=== PATIENT | female | born 1935 | race Caucasian/White ===

== ENCOUNTER 2016-10-09 22:02 | Emergency (ER) | payer OTHER ==
[~2016-10-09] VITALS: Ht 147.3 cm; Wt 41.0 kg
[~2016-10-09 22:02] MED LIST: ASPI81TA28 PO; CYCL0.05 OPB; FLUT0.0529 NAE; METO50TA16 PO; MRN/25 PO; ONDA4TAB46 PO; POLY335019 PO
[2016-10-09 22:09] VITALS: TEMP 36.6; Ht 147.3 cm; Wt 41.0 kg
[2016-10-09 22:51] LABS: BASO % 0.5 %; BASO ABS # 0.05 K/uL (0-0.2); COMPLETE YES; EOS % 1.4 %; HEMATOCRIT 43.5 % (37-47); IG% 0.2 %; LYMPH ABS # 2.44 K/uL (1.2-3.4); MEAN CORPUSCULAR HEMOGLOBIN 31.7 pg (25-34); MEAN CORPUSCULAR HGB CONC 33.8 g/dl (32-36); MEAN PLATELET VOLUME 11.2 fL (7.4-10.4); MONO % 14.5 %; NEUT % 58.4 %; PLATELET COUNT 279 K/uL (130-400); RED BLOOD COUNT 4.63 M/uL (4.2-5.4); WHITE BLOOD COUNT 9.75 K/uL (4.8-10.8)
[2016-10-09] MEDS ORDERED: OPTIRAY 320 IV PRN (23:00)
[2016-10-09 23:05] LABS: ALT/SGPT 15 U/L (12-78); AST/SGOT 12 U/L (15-37); BLOOD UREA NITROGEN 16 mg/dl (7-18); BUN/CREATININE RATIO 18.1 (10-20); CALCIUM 9.1 mg/dl (8.5-10.1); CARBON DIOXIDE 27 mmol/L (21-32); CHLORIDE 108 mmol/L (98-107); CREATININE 0.88 mg/dl (0.60-1.20); GLUCOSE 83 mg/dl (70-99); SODIUM 144 mmol/L (136-145)
[2016-10-09 23:08] LABS: ALKALINE PHOSPHATASE 84 U/L (45-117)
[2016-10-09 23:12] LABS: URINE APPEARANCE CLOUDY (CLEAR); URINE BILIRUBIN NEG (NEG); URINE COLOR YELLOW; URINE NITRITE POS (NEG); URINE PH 5.5 (4.5-7.5); UROBILINOGEN NEG (NEG); ZZUR CULT IF INDIC CLEAN CATCH YES
[2016-10-09 23:19] LABS: MANUAL MICROSCOPIC REQUIRED? NO; REVIEW REQ? NO
[2016-10-10] MEDS ORDERED: KPP/250 PO (00:20)
[2016-10-10] MEDS ORDERED: ONDANSETRON INJ 2 MG/ML 2 ML VIAL IV STA (00:41)
[2016-10-10] MEDS ORDERED: SODIUM CHLORIDE 0.9% 250ML 250 ML IV STA (00:41)
[2016-10-10] MEDS ORDERED: GI COCKTAIL PO STA (00:41)
[2016-10-10] MEDS ORDERED: AMPICILLIN 250 MG CAP PO STA (00:43)
[2016-10-10] MEDS ORDERED: LIDOCAINE HCL 2% VISC SOLN 20 ML UDC ONE (00:44)
[2016-10-10] MEDS ORDERED: ALUMINUM/MAGNESIUM SUSP 30 ML UDC ONE (00:44)
[2016-10-10] MEDS ORDERED: AMPI500C9 PO (00:47)
[2016-10-10] MEDS ORDERED: FAMO20TA11 PO (01:25)
[2016-10-10 01:36] VITALS: BP 148/59; PULSE 60; O2SAT 94
--- NOTE | 2016-10-10 01:40 | EMERGENCY ROOM VISIT NOTE ---
History Report prepared by Tom: Sindhu Sheets Under the Supervision of: Dr. Hay Chowdhury D.O. First contact with patient: 22:26 Chief Complaint: ABDOMINAL PAIN Stated Complaint: SICK- PAIN IN LEGS AND STOMACH History of Present Illness The patient is a 80 year old female who presents to the Emergency Room with complaints of constant diffuse abdominal pain that started 2-3 days ago. She has never experienced pain like this in the past. Nothing seems to make the pain better. The patient is also experiencing nausea, but denies vomiting. The patient's last bowel movement was today and it was normal. She is also experiencing lightheadedness and states that she feels like she is going to experience syncope. The lightheadedness occurs only when she experiences leg pain. The patient's daughter states that the patient has been experiencing worsening left leg pain recently. The patient has been experiencing left leg pain ever since she had a hemorrhagic stroke in 2012. The stroke affected her left side. The patient's daughter states that the patient had blood clots in her left leg and they put a filter in. She is not on any blood thinners because of the hemorrhagic stroke. The patient's daughter adds that the patient was started on antibiotics by her PCP on 09/26 for an E. coli infection. The patient finished a full course of Cipro then she was put on Macrobid and another course of Cipro. However, her PCP stopped the antibiotics because they thought it might be the cause of her abdominal pain so she is not on any antibiotics currently. The patient was started on Keppra 2 days ago. Source of History: patient Onset: 2-3 days ago Position: abdomen (diffuse) Timing: constant Modifying Factors (Relieving): other (None) Associated Symptoms: + nausea, No vomiting Note: lightheadedness, left leg pain Review of Systems See HPI for pertinent positives & negatives. A total of 10 systems reviewed and were otherwise negative. Past Medical & Surgical Medical Problems: (1) Abdominal aortic aneurysm dissection (2) Abdominal pain (3) Brainstem hemorrhage (4) CAD (coronary artery disease) (5) Chronic pain (6) Left leg DVT (7) Pacemaker (8) PAT (paroxysmal atrial tachycardia) (9) Sinoatrial node dysfunction Surgical Problems: (1) H/O splenectomy (2) History of repair of hiatal hernia (3) History of tonsillectomy and adenoidectomy (4) S/P IVC filter Family History Heart disease Hypertension Kidney disease Kidney stones Social History Smoking Status: Never Smoker Alcohol Use: none Marital Status: Housing Status: lives alone Occupation Status: retired Current/Historical Medications Scheduled Ampicillin (Ampicillin), 1 CAP PO TID Aspirin (Aspirin Ec), 81 MG PO DAILY Dronabinol (Marinol), 2.5 MG PO BID Famotidine (Pepcid), 20 MG PO DAILY Levetiractam (Keppra), 250 MG PO BID Metoprolol Tartrate (Lopressor) (Lopressor), 50 MG PO BID Scheduled PRN Ondansetron Hcl (Zofran), 4 MG PO QID PRN for Nausea Allergies Coded Allergies: Diclofenac (Verified Allergy, Severe, HIGH BP, 10/10/16) Isopropyl Alcohol (Verified Allergy, Severe, HIGH BP, 10/10/16) Propylene Glycol (Verified Allergy, Severe, HIGH BP, 10/10/16) Tizanidine (Unverified Allergy, Intermediate, DELIRIUM, 10/10/16) Cephalexin (Verified Allergy, Mild, 10/10/16) Codeine (Verified Allergy, Unknown, edema airway,rash & hives, 10/10/16) Egg (Verified Allergy, Unknown, ALLERGY TO EGG WHITES, 10/10/16) Ketorolac (Verified Allergy, Unknown, 10/10/16) Omeprazole (Verified Allergy, Unknown, unknown, 10/10/16) gmg Propoxyphene (Verified Allergy, Unknown, 10/10/16) Sulfa Drugs (Verified Allergy, Unknown, 10/10/16) Sucralfate (Verified Adverse Reaction, Unknown, itching,n/v, 10/10/16) gmg Physical Exam Vital Signs Date Time Temp Pulse Resp B/P Pulse Ox O2 Delivery O2 Flow Rate FiO2 10/10/16 00:28 67 20 172/72 94 Room Air 10/09/16 22:25 84 10/09/16 22:09 36.6 89 24 156/76 96 Room Air Physical Exam GENERAL: alert, sitting up in bed, cachectic appearing, no acute distress, non- toxic EYE EXAM: normal conjunctiva, PERRL and EOM's intact OROPHARYNX: no exudate, no erythema, lips, buccal mucosa, and tongue normal and mucous membranes are moist NECK: supple, no nuchal rigidity, no adenopathy, non-tender LUNGS: Clear to auscultation. Normal chest wall mechanics HEART: no murmurs, S1 normal and S2 normal ABDOMEN: abdomen soft, non-tender, normo-active bowel sounds, no masses, no rebound or guarding. BACK: Back is symmetrical on inspection and there is no deformity, no midline tenderness, no CVA tenderness. SKIN: no rashes and no bruising UPPER EXTREMITIES: upper extremities are grossly normal. LOWER EXTREMITIES: No pitting edema. DP 2/4 on right with full active and passive range of motion of the hip, knee, ankle, and EHL. NEURO EXAM: Normal sensorium, cranial nerves II-XII intact, normal speech, slight weakness in left upper extremity which is old, slight weakness of left lower extremity which is old. No drift. Finger to nose intact. Gross sensation intact. Medical Decision & Procedures ER Provider Diagnostic Interpretation: CT and US results have been interpreted by the radiologist and reviewed by me. CT ABDOMEN & PELVIS - [facility] impression Multicystic ovaries, largest lesion on the right side measuring approximately 3.5 cm. No surrounding fluid of inflammation. Large hiatal hernia. Small stones suspected at the base of the bladder. Colonic diverticulosis but not acute diverticulitis, colitis, appendicitis, or bowel obstruction. IVC filter in place. Atrophy of the right kidney. Left kidney shows scarring at the upper pole with exophytic cyst. No hydronephrosis. US VENOUS LEFT LOWER EXTREMITY - [facility] impression Age-indeterminate nonocclusive thrombus identified in the mid to distal superficial femoral vein (not completely compressible and hypoechoic). No priors available to document stability. Laboratory Results 10/09/16 22:37 Red Blood Count 4.63, Mean Corpuscular Volume 94.0, Mean Corpuscular Hemoglobin 31.7, Mean Corpuscular Hemoglobin Concent 33.8, Mean Platelet Volume 11.2, Neutrophils (%) (Auto) 58.4, Lymphocytes (%) (Auto) 25.0, Monocytes (%) (Auto) 14.5, Eosinophils (%) (Auto) 1.4, Basophils (%) (Auto) 0.5, Neutrophils # (Auto ) 5.69, Lymphocytes # (Auto) 2.44, Monocytes # (Auto) 1.41, Eosinophils # (Auto ) 0.14, Basophils # (Auto) 0.05 10/09/16 22:37 Test 10/09/16 22:37 10/09/16 23:01 White Blood Count 9.75 K/uL (4.8-10.8) Red Blood Count 4.63 M/uL (4.2-5.4) Hemoglobin 14.7 g/dL (12.0-16.0) Hematocrit 43.5 % (37-47) Mean Corpuscular Volume 94.0 fL (80-100) Mean Corpuscular Hemoglobin 31.7 pg (25-34) Mean Corpuscular Hemoglobin Concent 33.8 g/dl (32-36) Platelet Count 279 K/uL (130-400) Mean Platelet Volume 11.2 fL (7.4-10.4) Neutrophils (%) (Auto) 58.4 % Lymphocytes (%) (Auto) 25.0 % Monocytes (%) (Auto) 14.5 % Eosinophils (%) (Auto) 1.4 % Basophils (%) (Auto) 0.5 % Neutrophils # (Auto) 5.69 K/uL (1.4-6.5) Lymphocytes # (Auto) 2.44 K/uL (1.2-3.4) Monocytes # (Auto) 1.41 K/uL (0.11-0.59) Eosinophils # (Auto) 0.14 K/uL (0-0.5) Basophils # (Auto) 0.05 K/uL (0-0.2) RDW Standard Deviation 49.7 fL (36.4-46.3) RDW Coefficient of Variation 14.6 % (11.5-14.5) Immature Granulocyte % (Auto) 0.2 % Immature Granulocyte # (Auto) 0.02 K/uL (0.00-0.02) Anion Gap 9.0 mmol/L (3-11) Est Creatinine Clear Calc Drug Dose 32.4 ml/min Estimated GFR () 71.4 Estimated GFR (Non- 61.6 BUN/Creatinine Ratio 18.1 (10-20) Calcium Level 9.1 mg/dl (8.5-10.1) Total Bilirubin 0.3 mg/dl (0.2-1) Direct Bilirubin < 0.1 mg/dl (0-0.2) Aspartate Amino Transf (AST/SGOT) 12 U/L (15-37) Alanine Aminotransferase (ALT/SGPT) 15 U/L (12-78) Alkaline Phosphatase 84 U/L (45-117) Total Protein 7.4 gm/dl (6.4-8.2) Albumin 3.2 gm/dl (3.4-5.0) Lipase 146 U/L (73-393) Urine Color YELLOW Urine Appearance CLOUDY (CLEAR) Urine pH 5.5 (4.5-7.5) Urine Specific [place] 1.000 (1.000-1.030) Urine Protein NEG (NEG) Urine Glucose (UA) NEG (NEG) Urine Ketones NEG (NEG) Urine Occult Blood 1+ (NEG) Urine Nitrite POS (NEG) Urine Bilirubin NEG (NEG) Urine Urobilinogen NEG (NEG) Urine Leukocyte Esterase LARGE (NEG) Urine WBC (Auto) >30 /hpf (0-5) Urine RBC (Auto) 0-4 /hpf (0-4) Urine Hyaline Casts (Auto) 0 /lpf (0-5) Urine Epithelial Cells (Auto) 5-10 /lpf (0-5) Urine Bacteria (Auto) 4+ (NEG) Laboratory results per my review. Medications Administered Medications (Trade) Dose Ordered Sig/Pedro Route Start Time Stop Time Status Last Admin Dose Admin Ondansetron HCl (Zofran Inj) 4 mg NOW STAT IV 10/10/16 00:41 10/10/16 00:42 DC 10/10/16 00:50 4 MG Miscellaneous Medication 24 ml 24 ml NOW STAT PO 10/10/16 00:41 10/10/16 00:43 DC 10/10/16 00:41 24 ML Sodium Chloride (Nss 250ml) 250 ml @ 999 mls/hr Q16M STAT IV 10/10/16 00:41 10/10/16 00:56 DC 10/10/16 00:52 999 MLS/HR Ampicillin (Ampicillin Cap) 500 mg NOW STAT PO 10/10/16 00:43 10/10/16 00:44 DC 10/10/16 00:55 500 MG ECG Indication: abdominal pain Rate (beats per minute): 84 Rhythm: other (atrial paced) Findings: other (normal axis, poor baseline in anterior leads) Comparison ECG Date: 10/27/2015 Change: no significant change ED Course ED COURSE: Vital signs were reviewed and showed hypertension. The patients medical record was reviewed The above diagnostic studies were performed and reviewed. ED treatments and interventions as stated above. 2235: The patient was evaluated in room A11. A complete history and physical examination was performed. 2256: I called to have the patient's pacemaker interrogated. 2338: The nurse informed me that she talked to [employer] and they said that the only thing the patient experienced was a run of sinus tachycardia on October 09. Otherwise the patient's pacemaker has been functioning appropriately. 0000: I reassessed the patient. I also updated the patient and her family. 0041: Ordered Sodium Chloride 250 ml @ 999 mls/hr IV, GI Cocktail 24 ml PO, Zofran Inj 4 mg IV, Ampicillin 500 mg PO 0109: [facility] called to inform me about the patient's ultrasound results. 0114: Upon reevaluation, the patient is doing well. I discussed my findings with the patient and her family. They understand and agree with the treatment plan. Based on the patients age, coexisting illnesses, exam and lab findings the decision to treat as an outpatient was made. The patient remained stable while under my care. The patient appeared well at the time of discharge. Medical Decision Differential diagnoses includes but is not limited to gastritis, peptic ulcer disease, GERD, gallbladder disease, pancreatitis, small bowel obstruction, acute coronary syndrome, pericarditis, ischemic bowel, irritable bowel disease, irritable bowel syndrome, appendicitis, diverticulitis, malignancy, hernia, urinary tract infection, torsion, perforation, trauma, infectious. Patient is an 80-year-old female who presents the ER for diffuse abdominal pain associated with dysuria which is been present for the past 2 weeks. She is also complaining of worsening left leg pain. Patient notes that she has been having abdominal pain for the past 2-3 days. She notes that sometimes it resolves completely but she is uncertain of the exacerbating or remitting factors. Her abdominal exam is benign. She was given a GI cocktail with complete resolution of her symptoms. She denied any chest pain or shortness of breath. CT of her abdomen and pelvis was unremarkable. Last bowel movement was today. She has been treated for UTI with 2 courses Cipro and 1 of Macrobid. Upon review of the culture from [employer]'s EMR it shows that the UTI is lying and resistant to Cipro. She is placed on ampicillin as it was susceptible to this. She has taken penicillins in the past without difficulty. Labs show no significant leukocytosis or anemia. BMP along with LFTs, bilirubin and lipase were unremarkable. UA shows a clear UTI as discussed above. She good pulse in the left leg. Duplex shows a nonocclusive thrombus in the superficial femoral vein. Patient and her family note that she can not be on anticoagulation due to a hypertensive bleed back in 2012. They are adamant about this. She has an IVC filter. Consequently I stressed the importance of her following up with her primary care doctor tomorrow in regards to this DVT. I explained the risk and benefits of this. She does currently take aspirin. Stressed the importance of being more active. Discussed with Pt concerning signs and symptoms to watch out for. Pt was instructed to follow up with their PCP and discussed with the patient their option to return to the ED at anytime for persistent or worsening symptoms. The appropriate anticipatory guidance and out-patient management, including indications for return to the emergency department, were explained at length to the patient and understood. Impression Primary Impression: Periumbilical abdominal pain Additional Impressions: UTI (urinary tract infection) Chronic radicular pain of lower extremity DVT (deep venous thrombosis) Scribe Attestation The scribe's documentation has been prepared under my direction and personally reviewed by me in its entirety. I confirm that the note above accurately reflects all work, treatment, procedures, and medical decision making performed by me. Departure Information Dispostion Home / Self-Care Prescriptions Famotidine (Pepcid) 20 Mg Tab 20 MG PO DAILY, #30 TAB Prov: Hay Chowdhury, DO 10/10/16 Ampicillin (AMPICILLIN) 500 Mg Cap 1 CAP PO TID for 10 Days, #30 CAP Prov: Hay Chowdhury, DO 10/10/16 Referrals Analia Yates D.O. (PCP) Forms HOME CARE DOCUMENTATION FORM, IMPORTANT VISIT INFORMATION Patient Instructions Abdominal Pain - [facility], [facility], UTI Additional Instructions Please follow up with your primary care doctor with in the next 24 hours. Any worsening of your symptoms, please return to the ED immediately. This includes persistent fevers greater than 100.4, passing out, chest pain, shortness of breath, or any other concerning signs or symptoms from your standpoint. Please take the antibiotics as prescribed. Please follow up with your primary care doctor in regards to the small nonocclusive DVT in your left superficial femoral vein. Please take Pepcid as prescribed for your burning abdominal pain. Problem Qualifiers Additional Impressions: UTI (urinary tract infection) Urinary tract infection type: acute cystitis Hematuria presence: without hematuria Qualified Codes: N30.00 - Acute cystitis without hematuria DVT (deep venous thrombosis) DVT location: lower extremity Affected thrombotic vein of extremity: femoral Laterality: left Chronicity: unspecified Qualified Codes: I82.412 - Acute embolism and thrombosis of left femoral vein
--- NOTE | 2016-10-10 06:44 | DIAGNOSTIC IMAGING REPORT ---
ULTRASOUND LEFT LOWER EXTREMITY VENOUS CLINICAL HISTORY: Left leg pain. COMPARISON STUDY: Left lower extremity venous ultrasound dated 07/29/2015. TECHNIQUE: Real-time, grayscale, and color Doppler sonography of the deep veins of the left lower extremity was performed from the inguinal crease to the calf. Compression and augmentation were utilized. FINDINGS: There is nonocclusive and age indeterminant but chronic appearing deep venous thrombosis seen within the distal superficial femoral vein. The common femoral vein, the proximal superficial femoral, and popliteal veins are patent and normally compressible. The greater saphenous vein and the profunda femoris vein at the junction with the common femoral vein are clear. The visualized calf veins are patent. IMPRESSION: 1. There is age indeterminant but chronic appearing deep venous thrombosis identified within the mid to distal portions of the left superficial femoral vein. Thrombus was also seen at this site on 07/29/2015. 2. The remaining deep veins of the left lower extremity are patent. Electronically signed by: Woodrow Salazar M.D. 10/10/2016 6:43 AM Dictated Date/Time: 10/10/2016 6:41 AM
--- NOTE | 2016-10-10 07:22 | DIAGNOSTIC IMAGING REPORT ---
CT SCAN OF THE ABDOMEN AND PELVIS WITH IV CONTRAST CLINICAL HISTORY: Nausea. Generalized abdominal pain. COMPARISON STUDY: Abdominal CT dated 04/23/2016. TECHNIQUE: Following the IV administration of 92 cc of Optiray 320, CT scan of the abdomen and pelvis is performed from the lung bases to the proximal femora. Images are reviewed in the axial, sagittal, and coronal planes. IV contrast was administered without complication. Automated dose control exposure was utilized. The examination is degraded by streak artifact from the patient's arms which could not be elevated above the abdomen. CT DOSE: 260.77 mGy.cm FINDINGS: Lung bases: The heart is top normal in size and without pericardial effusion. Pacemaker leads are noted. The coronary arteries are densely calcified. There is chronic elevation of the left hemidiaphragm with left basilar atelectasis. The lung bases are otherwise clear. Liver: The contrast-enhanced liver is normal in size, contour, and attenuation. There is no intrahepatic biliary ductal dilatation. The hepatic veins and portal veins are patent. Gallbladder: Unremarkable. Spleen: The spleen is diminutive. Pancreas: Markedly atrophic and grossly unremarkable. Adrenal glands: Unremarkable. Kidneys: The today's are markedly atrophic, asymmetrically greater on the right than the left. Postoperative change is suggested in the right upper pole. The kidneys enhance symmetrically. Numerous foci of parenchymal scarring are seen bilaterally. There are nonobstructing bilateral renal calculi. A left renal cyst measures 2.8 cm. Additional subcentimeter cortical hypodensities also likely represent cysts but are too small for definitive characterization. Abdominal vasculature: The abdominal aorta is normal in course and caliber noting advanced atherosclerotic calcification. There is focal ectasia and a focal dissection seen in the infrarenal abdominal aorta on axial image #153. An IVC filter is in place at the level of the renal veins. Stomach and bowel: There is a moderate hiatal hernia. The duodenum is normal in configuration. No bowel obstruction is seen. There is advanced sigmoid diverticulosis without CT evidence of acute diverticulitis. Mild to moderate colonic fecal retention is observed. The appendix is well-visualized and normal. Peritoneum: There is no intraperitoneal free air or abdominal ascites. There is a small fat-containing umbilical hernia. Lymphadenopathy: None. Pelvic viscera: There are bladder calculi identified. The bladder is otherwise normal as visualized. The uterus is normal as imaged. The ovaries are enlarged and there are numerous bilateral ovarian cystic lesions. The largest is on the right and measures up to 3.6 cm. these are similar appearance to the 04/23/2016 examination. Findings suggest pelvic floor prolapse. Skeletal structures: The skeletal structures are osteopenic. There is mild lumbosacral spondylosis. A mild/moderate compression deformity is noted involving T11. No lytic or blastic lesions are seen. IMPRESSION: 1. There are no acute infectious or inflammatory findings in the abdomen or pelvis. 2. There is advanced diverticulosis of the left colon without CT evidence of acute diverticulitis. 3. There are bilateral nonobstructing renal calculi. Bladder calculi are also seen. 4. The kidneys are atrophic and postoperative change is suggested in the right. 5. There is advanced after sclerotic calcification. There is focal ectasia and a focal dissection again seen in the infrarenal abdominal aorta. This is similar to previous. 6. The ovaries appear enlarged and there are numerous bilateral ovarian cystic lesions measuring up to 3.6 cm. This is unchanged from 04/23/2016, but is an abnormal finding in this age group. Nonemergent gynecology consultation and follow-up with pelvic ultrasound is recommended for further assessment. 7. Moderate to large hiatal hernia. 8. Additional changes as above. Electronically signed by: Woodrow Salazar M.D. 10/10/2016 7:21 AM Dictated Date/Time: 10/10/2016 7:10 AM
--- NOTE | 2016-10-12 12:09 | Pharmacy Progress Note ---
ED Pharmacist Culture FollowUp Date of Service: Oct 12, 2016. Patient was sent home with a prescription for ampicillin, which should cover the E. coli growing from the patient's urine culture.
== END 2016-10-10 01:38 | disposition home or self-care (01) ==
LOC: C.EDB 22:02 → C.EDA 10-10 01:38
DX: N30.00 Acute cystitis without hematuria (principal); I82.412 Acute embolism and thrombosis of left femoral vein; I25.10 Atherosclerotic heart disease of native coronary artery without angina pectoris; G89.29 Other chronic pain; A49.8 Other bacterial infections of unspecified site; Z95.0 Presence of cardiac pacemaker; Z82.49 Family history of ischemic heart disease and other diseases of the circulatory system; Z79.82 Long term (current) use of aspirin

== ENCOUNTER 2017-03-08 17:00 | Emergency (ER) | payer OTHER ==
[~2017-03-08] VITALS: Ht 147.3 cm; Wt 41.0 kg
[~2017-03-08 17:00] MED LIST changes: -CYCL0.05 OPB; +FAMO20TA11 PO; -FLUT0.0529 NAE; +KPP/250 PO; -POLY335019 PO
[2017-03-08 17:08] VITALS: TEMP 36.8; Ht 147.3 cm; Wt 41.0 kg
[2017-03-08] MEDS ORDERED: SODIUM CHLORIDE 0.9% 1000ML 1,000 ML IV STA (17:47)
[2017-03-08] MEDS ORDERED: FENTANYL CITRATE INJ 50 MCG/1 ML 2 ML VIAL IV STA (17:47)
[2017-03-08] MEDS ORDERED: ONDANSETRON INJ 2 MG/ML 2 ML VIAL IV STA (17:47)
[2017-03-08] MEDS ORDERED: SODIUM CHLORIDE 0.9% 250ML 250 ML IV STA (17:47)
[2017-03-08] MEDS ORDERED: AMOX500C3 PO (17:54)
[2017-03-08] MEDS ORDERED: METO25TA56 PO (17:54)
[2017-03-08 18:13] LABS: BASO % 0.6 %; BASO ABS # 0.06 K/uL (0-0.2); COMPLETE YES; EOS % 1.1 %; HEMATOCRIT 41.7 % (37-47); IG% 0.2 %; LYMPH % 31.4 %; LYMPH ABS # 3.05 K/uL (1.2-3.4); MEAN CELL VOLUME 93.1 fL (80-100); MEAN CORPUSCULAR HEMOGLOBIN 32.1 pg (25-34); MEAN CORPUSCULAR HGB CONC 34.5 g/dl (32-36); MEAN PLATELET VOLUME 10.4 fL (7.4-10.4); MONO % 11.5 %; NEUT % 55.2 %; PLATELET COUNT 293 K/uL (130-400); RED BLOOD COUNT 4.48 M/uL (4.2-5.4); WHITE BLOOD COUNT 9.72 K/uL (4.8-10.8)
[2017-03-08 18:38] LABS: BUN/CREATININE RATIO 11.2 (10-20); CALCIUM 9.3 mg/dl (8.5-10.1); CREATININE 0.79 mg/dl (0.60-1.20); MAGNESIUM 2.4 mg/dl (1.8-2.4)
--- NOTE | 2017-03-08 18:54 | EMERGENCY ROOM VISIT NOTE ---
History Report prepared by Tom: Rebecca Purdy Under the Supervision of: Dr. Laine Campbell M.D. First contact with patient: 17:13 Chief Complaint: OTHER COMPLAINT Stated Complaint: L SIDE NUMBNESS, BACK HURTING BAD, STROKE 4YRS AGO History of Present Illness The patient is a 81 year old female who presents to the Emergency Room with complaints of worsening lower back pain for the past 8 days. Her pain radiates down her left buttock and into her left leg. She has had pain in this area before, but she states that her current pain is different. She states that it is more severe than it has been in the past. She rates her current pain as a 10/ 10 in severity. Her pain worsened after having acupuncture. Coughing exacerbates her back pain. The patient reports dizziness for the past week and feeling like she is going to pass out. 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 She has been in a wheelchair since that stroke. The patient denies any recent trauma or injury. She denies recent falls. She also denies any incontinence of urine or stool. She was recently feeling very congested and coughing. She saw her PCP for these symptoms. They were concerned for pneumonia and started the patient on antibiotics. The patient does not think that the antibiotic helped to alleviate her symptoms. She also notes that she recently had some urinary symptoms. Source of History: patient Onset: 8 days ago Position: back (lower) Symptom Intensity: 10/10 Quality: other (radiating) Timing: worsening Modifying Factors (Worsening): other (coughing/acupuncture) Associated Symptoms: + cough, + urinary symptoms, + numbness (chronic left- sided) Note: The patient has pain into her left leg. Pt notes dizziness. Pt denies recent trauma or injury. Pt denies incontinence. Review of Systems See HPI for pertinent positives & negatives. A total of 10 systems reviewed and were otherwise negative. Past Medical & Surgical Medical Problems: (1) Abdominal aortic aneurysm dissection (2) Abdominal pain (3) Brainstem hemorrhage (4) CAD (coronary artery disease) (5) Chronic pain (6) Left leg DVT (7) Pacemaker (8) PAT (paroxysmal atrial tachycardia) (9) Sinoatrial node dysfunction Surgical Problems: (1) H/O splenectomy (2) History of repair of hiatal hernia (3) History of tonsillectomy and adenoidectomy (4) S/P IVC filter Family History Heart disease Hypertension Kidney disease Kidney stones Social History Smoking Status: Never Smoker Alcohol Use: none Marital Status: Housing Status: lives alone Occupation Status: retired Current/Historical Medications Scheduled Amoxicillin (Amoxil), 500 MG PO BID Aspirin (Aspirin Ec), 81 MG PO DAILY Dronabinol (Marinol), 2.5 MG PO BID Metoprolol Tartrate (Lopressor) (Lopressor), 50 MG PO QAM Metoprolol Tartrate (Lopressor) (Lopressor), 25 MG PO QPM Ondasetron Odt (Zofran Odt), 4 MG SL Q6H Scheduled PRN Tramadol (Ultram), 1 TABS PO Q6 PRN for Pain Allergies Coded Allergies: Diclofenac (Verified Allergy, Severe, HIGH BP, 03/08/17) Isopropyl Alcohol (Verified Allergy, Severe, HIGH BP, 03/08/17) Propylene Glycol (Verified Allergy, Severe, HIGH BP, 03/08/17) Tizanidine (Unverified Allergy, Intermediate, DELIRIUM, 03/08/17) Cephalexin (Verified Allergy, Mild, 03/08/17) Codeine (Verified Allergy, Unknown, edema airway,rash & hives, 03/08/17) Egg (Verified Allergy, Unknown, ALLERGY TO EGG WHITES, 03/08/17) Ketorolac (Verified Allergy, Unknown, 03/08/17) Omeprazole (Verified Allergy, Unknown, unknown, 03/08/17) gmg Propoxyphene (Verified Allergy, Unknown, 03/08/17) Sulfa Drugs (Verified Allergy, Unknown, 03/08/17) Sucralfate (Verified Adverse Reaction, Unknown, itching,n/v, 03/08/17) gmg Physical Exam Vital Signs Date Time Temp Pulse Resp B/P (MAP) Pulse Ox O2 Delivery O2 Flow Rate FiO2 03/08/17 20:31 78 20 130/60 92 Room Air 03/08/17 19:06 78 18 164/68 93 Room Air 03/08/17 17:08 36.8 85 18 172/91 95 Room Air Physical Exam Vital signs reviewed. General: Frail-appearing elderly female, in no significant distress. HEENT: No scleral icterus, PERRLA, neck supple. Atraumatic. Cardiovascular: Regular rate and rhythm, no extra sounds. Pulmonary: Clear to auscultation bilaterally, normal work of breathing. Abdomen: Soft, nontender, nondistended, positive bowel sounds. Musculoskeletal: Atraumatic, kyphotic, no peripheral edema. Mild tenderness to the lumbar spine without step-off or deformity. Neurologic: Patient awake alert and oriented x 3, full strength in all 4 extremities. Cranial nerves 2 through 12 grossly intact. Skin: Warm, dry, no rash Medical Decision & Procedures ER Provider Diagnostic Interpretation: Radiology results as stated below per my review and radiologist interpretation: L-SPINE MIN 4 VIEWS ROUTINE HISTORY: Pain low back pain, compression fracture COMPARISON: None. FINDINGS: Mild wedge deformity superior endplate T11. This is considered nonacute. Moderate degenerative change throughout the remainder of the lumbar region. No evidence for a lumbar compression deformity. Mild scoliosis. Mild osteopenia. Degenerative change posterior elements. No subluxation. IMPRESSION: Moderate degenerative change. Osteopenia. No acute bony abnormality specifically of the lumbar spine The above report was generated using voice recognition software. It may contain grammatical, syntax or spelling errors. Electronically signed by: Serg Vazquez M.D. 03/08/2017 6:59 PM Dictated Date/Time: 03/08/2017 6:58 PM CHEST 2 VIEWS ROUTINE CLINICAL HISTORY: cough, back pain pain COMPARISON STUDY: 04/22/2016 FINDINGS: Chronic elevation left hemidiaphragm. Mild stable cardiomegaly. Permanent bipolar cardiac pacemaker in good position. Lungs are clear. IMPRESSION: No acute process. The above report was generated using voice recognition software. It may contain grammatical, syntax or spelling errors. Electronically signed by: Serg Vazquez M.D. 03/08/2017 6:58 PM Dictated Date/Time: 03/08/2017 6:57 PM Laboratory Results 03/08/17 18:05 Red Blood Count 4.48, Mean Corpuscular Volume 93.1, Mean Corpuscular Hemoglobin 32.1, Mean Corpuscular Hemoglobin Concent 34.5, Mean Platelet Volume 10.4, Neutrophils (%) (Auto) 55.2, Lymphocytes (%) (Auto) 31.4, Monocytes (%) (Auto) 11.5, Eosinophils (%) (Auto) 1.1, Basophils (%) (Auto) 0.6, Neutrophils # (Auto ) 5.36, Lymphocytes # (Auto) 3.05, Monocytes # (Auto) 1.12, Eosinophils # (Auto ) 0.11, Basophils # (Auto) 0.06 03/08/17 18:05 Test 03/08/17 18:05 03/08/17 19:00 White Blood Count 9.72 K/uL (4.8-10.8) Red Blood Count 4.48 M/uL (4.2-5.4) Hemoglobin 14.4 g/dL (12.0-16.0) Hematocrit 41.7 % (37-47) Mean Corpuscular Volume 93.1 fL (80-100) Mean Corpuscular Hemoglobin 32.1 pg (25-34) Mean Corpuscular Hemoglobin Concent 34.5 g/dl (32-36) Platelet Count 293 K/uL (130-400) Mean Platelet Volume 10.4 fL (7.4-10.4) Neutrophils (%) (Auto) 55.2 % Lymphocytes (%) (Auto) 31.4 % Monocytes (%) (Auto) 11.5 % Eosinophils (%) (Auto) 1.1 % Basophils (%) (Auto) 0.6 % Neutrophils # (Auto) 5.36 K/uL (1.4-6.5) Lymphocytes # (Auto) 3.05 K/uL (1.2-3.4) Monocytes # (Auto) 1.12 K/uL (0.11-0.59) Eosinophils # (Auto) 0.11 K/uL (0-0.5) Basophils # (Auto) 0.06 K/uL (0-0.2) RDW Standard Deviation 48.1 fL (36.4-46.3) RDW Coefficient of Variation 14.0 % (11.5-14.5) Immature Granulocyte % (Auto) 0.2 % Immature Granulocyte # (Auto) 0.02 K/uL (0.00-0.02) Anion Gap 7.0 mmol/L (3-11) Est Creatinine Clear Calc Drug Dose 35.4 ml/min Estimated GFR () 80.8 Estimated GFR (Non- 69.7 BUN/Creatinine Ratio 11.2 (10-20) Calcium Level 9.3 mg/dl (8.5-10.1) Magnesium Level 2.4 mg/dl (1.8-2.4) Total Bilirubin 0.5 mg/dl (0.2-1) Direct Bilirubin 0.1 mg/dl (0-0.2) Aspartate Amino Transf (AST/SGOT) 15 U/L (15-37) Alanine Aminotransferase (ALT/SGPT) 15 U/L (12-78) Alkaline Phosphatase 79 U/L (45-117) Total Protein 7.5 gm/dl (6.4-8.2) Albumin 3.2 gm/dl (3.4-5.0) Urine Color YELLOW Urine Appearance CLEAR (CLEAR) Urine pH 7.5 (4.5-7.5) Urine Specific [place] 1.011 (1.000-1.030) Urine Protein NEG (NEG) Urine Glucose (UA) NEG (NEG) Urine Ketones NEG (NEG) Urine Occult Blood NEG (NEG) Urine Nitrite NEG (NEG) Urine Bilirubin NEG (NEG) Urine Urobilinogen NEG (NEG) Urine Leukocyte Esterase NEG (NEG) Laboratory results per my review. Medications Administered Medications (Trade) Dose Ordered Sig/Pedro Route Start Time Stop Time Status Last Admin Dose Admin Sodium Chloride 250 ml @ 999 mls/hr Q16M STAT IV 03/08/17 17:47 03/08/17 18:02 DC 03/08/17 17:47 999 MLS/HR Sodium Chloride 1,000 ml @ 125 mls/hr Q8H STAT IV 03/08/17 17:47 03/08/17 21:21 DC 03/08/17 18:03 125 MLS/HR Fentanyl Citrate (Fentanyl Inj) 25 mcg NOW STAT IV 03/08/17 17:47 03/08/17 17:50 DC 03/08/17 18:03 25 MCG Ondansetron HCl (Zofran Inj) 4 mg NOW STAT IV 03/08/17 17:47 03/08/17 17:50 DC 03/08/17 18:02 4 MG Tramadol HCl (Ultram Home Pack) 1 homepack UD ONCE PO 03/08/17 20:30 03/08/17 20:31 DC 03/08/17 20:29 1 HOMEPACK Ondansetron HCl (ZOFRAN ODT 4MG Home Pack) 1 homepack UD ONCE PO 03/08/17 20:30 03/08/17 20:31 DC 03/08/17 20:28 1 [facility] ED Course 1714: Past medical records reviewed. The patient was evaluated in room C8. A complete history and physical examination was performed. 174: Zofran 4 mg IV, Fentanyl 25 mcg IV, NSS 1000 ml @ 125 mls/hr IV, NSS 250 ml @ 999 mls/hr IV 2017: I reassessed the patient at this time. She is feeling better and resting comfortably. I discussed the results and treatment plan with the patient and her family. I answered all pertaining questions that they had. They expressed understanding and verbalized agreement. The patient will be discharged home. 2030: Zofran 4 mg PO home pack, Tramadol HCl PO home pack Medical Decision Differential diagnosis: Etiologies such as musculoskeletal, disc herniation, fracture, aortic disease, metastatic disease, cord compression, discitis, infection, renal colic, gastrointestinal, acute exacerbation of chronic back pain, sciatica, cauda equina, as well as others were entertained. This patient was evaluated and appeared to be in no significant distress. IV access was obtained and laboratory work was drawn. The patient was placed on the monitor tech. IV hydration was initiated. Patient's imaging studies are fairly unrevealing with the exception of chronic change. Lumbar spine reveals no evidence of acute fracture. Urinalysis is negative. Patient's laboratory work is fairly unrevealing. Family and patient were advised of the findings. They were discharged follow-up with her PCP this week and return to the ER for worsening of symptoms or any medical concerns. Medication Reconcilliation Current Medication List: was personally reviewed by me Blood Pressure Screening Patient's blood pressure: Normal blood pressure Impression Primary Impression: Lumbar radiculopathy, acute Scribe Attestation The scribe's documentation has been prepared under my direction and personally reviewed by me in its entirety. I confirm that the note above accurately reflects all work, treatment, procedures, and medical decision making performed by me. Departure Information Dispostion Home / Self-Care Prescriptions Ondasetron Odt (ZOFRAN ODT) 4 Mg Tab 4 MG SL Q6H for Nausea, #15 TAB Prov: Laine Campbell M.D. 03/08/17 Tramadol (Ultram) 50 Mg Tab 1 TABS PO Q6 Y for Pain, #14 TAB Prov: Laine Campbell M.D. 03/08/17 Referrals Analia Yates D.O. (PCP) Forms HOME CARE DOCUMENTATION FORM, IMPORTANT VISIT INFORMATION, WORK / SCHOOL INSTRUCTIONS Patient Instructions [facility] Additional Instructions Diagnosis: Lumbar radiculopathy Tylenol 650 mg every 6 hours as needed for pain. Ultram 50 mg every 6 hours as needed for more significant pain. Zofran 4 mg ODT every 6 hours as needed for nausea. Follow-up with your physician this week for reevaluation and continued management. Return to the ER for worsening of symptoms or any medical concerns.
--- NOTE | 2017-03-08 18:59 | DIAGNOSTIC IMAGING REPORT ---
CHEST 2 VIEWS ROUTINE CLINICAL HISTORY: cough, back pain pain COMPARISON STUDY: 04/22/2016 FINDINGS: Chronic elevation left hemidiaphragm. Mild stable cardiomegaly. Permanent bipolar cardiac pacemaker in good position. Lungs are clear. IMPRESSION: No acute process. The above report was generated using voice recognition software. It may contain grammatical, syntax or spelling errors. Electronically signed by: Serg Vazquez M.D. 03/08/2017 6:58 PM Dictated Date/Time: 03/08/2017 6:57 PM
--- NOTE | 2017-03-08 19:00 | DIAGNOSTIC IMAGING REPORT ---
L-SPINE MIN 4 VIEWS ROUTINE HISTORY: Pain low back pain, compression fracture COMPARISON: None. FINDINGS: Mild wedge deformity superior endplate T11. This is considered nonacute. Moderate degenerative change throughout the remainder of the lumbar region. No evidence for a lumbar compression deformity. Mild scoliosis. Mild osteopenia. Degenerative change posterior elements. No subluxation. IMPRESSION: Moderate degenerative change. Osteopenia. No acute bony abnormality specifically of the lumbar spine The above report was generated using voice recognition software. It may contain grammatical, syntax or spelling errors. Electronically signed by: Serg Vazquez M.D. 03/08/2017 6:59 PM Dictated Date/Time: 03/08/2017 6:58 PM
[2017-03-08 19:29] LABS: URINE APPEARANCE CLEAR (CLEAR); URINE BILIRUBIN NEG (NEG); URINE COLOR YELLOW; URINE NITRITE NEG (NEG); URINE PH 7.5 (4.5-7.5); URINE SPECIFIC GRAVITY 1.011 (1.000-1.030); UROBILINOGEN NEG (NEG); ZZURINE CULT IF INDIC CATH NO
[2017-03-08 19:34] LABS: MANUAL MICROSCOPIC REQUIRED? NO; REVIEW REQ? NO
[2017-03-08] MEDS ORDERED: TRAMADOL HCL 50 MG HOME PACK PO ONE (20:30)
[2017-03-08] MEDS ORDERED: ONDANSETRON HOME PACK 4MG OD TAB PO ONE (20:30)
[2017-03-08 20:31] VITALS: BP 130/60; PULSE 78; O2SAT 92
[2017-03-08] MEDS ORDERED: TRAM-10 PO (20:40)
[2017-03-08] MEDS ORDERED: ONDA4TAB10 SL (20:40)
== END 2017-03-08 20:50 | disposition home or self-care (01) ==
LOC: C.EDB 17:02 → C.EDC 20:50
DX: M54.16 Radiculopathy, lumbar region (principal); Z86.73 Personal history of transient ischemic attack (TIA), and cerebral infarction without residual deficits; Z86.718 Personal history of other venous thrombosis and embolism; I25.10 Atherosclerotic heart disease of native coronary artery without angina pectoris; Z95.0 Presence of cardiac pacemaker; I47.1 Supraventricular tachycardia; I49.5 Sick sinus syndrome; Z82.49 Family history of ischemic heart disease and other diseases of the circulatory system; Z84.1 Family history of disorders of kidney and ureter; Z79.82 Long term (current) use of aspirin; Z79.899 Other long term (current) drug therapy

== ENCOUNTER 2017-10-08 13:26 | Emergency (ER) | payer OTHER ==
[~2017-10-08] VITALS: Ht 144.8 cm; Wt 37.0 kg
[~2017-10-08 13:26] MED LIST changes: +AMOX500C3 PO; -FAMO20TA11 PO; -KPP/250 PO; +METO25TA56 PO; -ONDA4TAB46 PO
[2017-10-08 13:29] VITALS: TEMP 36.8; Ht 144.8 cm; Wt 37.0 kg
--- NOTE | 2017-10-08 13:50 | EMERGENCY ROOM VISIT NOTE ---
History Report prepared by Tom: Ronda Singh Under the Supervision of: Dr. Julio Cesar Garcia M.D. 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 She states that she gets these shocks several times a day. Some reported shocks have occurred on 09/30/17 at 1530, 10/05/17 at 1930, and 10/06/17 from 1230 to 1400. She also states that her left leg turns blue when she has shocks, but this is nothing new. She notes her entire left leg hurts. She denies any fevers. She is accompanied by her daughter who notes that she has not been present when her mother has had these episodes. 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 Review of Systems See HPI for pertinent positives and negatives. A total of ten systems were reviewed and were otherwise negative. Past Medical & Surgical Medical Problems: (1) Abdominal aortic aneurysm dissection (2) Abdominal pain (3) Brainstem hemorrhage (4) CAD (coronary artery disease) (5) Chronic pain (6) Left leg DVT (7) Pacemaker (8) PAT (paroxysmal atrial tachycardia) (9) Sinoatrial node dysfunction Surgical Problems: (1) H/O splenectomy (2) History of repair of hiatal hernia (3) History of tonsillectomy and adenoidectomy (4) S/P IVC filter Family History Heart disease Hypertension Kidney disease Kidney stones Social History Smoking Status: Never Smoker Alcohol Use: none Marital Status: Housing Status: lives alone Occupation Status: retired Current/Historical Medications Scheduled Aspirin (Aspirin Ec), 81 MG PO DAILY Dronabinol (Marinol), 2.5 MG PO BID Metoprolol Tartrate (Lopressor) (Lopressor), 50 MG PO QAM Metoprolol Tartrate (Lopressor) (Lopressor), 25 MG PO QPM Scheduled PRN Ondansetron Hcl (Zofran), 4 MG PO for Nausea Tramadol (Ultram), 1 TAB PO TID PRN for Pain Allergies Coded Allergies: Diclofenac (Verified Allergy, Severe, HIGH BP, 10/08/17) Isopropyl Alcohol (Verified Allergy, Severe, HIGH BP, 10/08/17) Propylene Glycol (Verified Allergy, Severe, HIGH BP, 10/08/17) Tizanidine (Unverified Allergy, Intermediate, DELIRIUM, 10/08/17) Cephalexin (Verified Allergy, Mild, 10/08/17) Codeine (Verified Allergy, Unknown, edema airway,rash & hives, 10/08/17) Egg (Verified Allergy, Unknown, ALLERGY TO EGG WHITES, 10/08/17) Ketorolac (Verified Allergy, Unknown, 10/08/17) Omeprazole (Verified Allergy, Unknown, unknown, 10/08/17) gmg Propoxyphene (Verified Allergy, Unknown, 10/08/17) Sulfa Drugs (Verified Allergy, Unknown, 10/08/17) Sucralfate (Verified Adverse Reaction, Unknown, itching,n/v, 10/08/17) gmg Physical Exam Vital Signs Date Time Temp Pulse Resp B/P (MAP) Pulse Ox O2 Delivery O2 Flow Rate FiO2 10/08/17 17:58 67 147/109 10/08/17 17:39 66 17 185/155 98 10/08/17 16:00 76 18 168/68 96 Room Air 10/08/17 14:31 96 Room Air 10/08/17 14:31 96 Room Air 10/08/17 14:17 61 10/08/17 14:09 67 19 131/76 96 Room Air 10/08/17 13:29 36.8 74 20 179/68 96 Physical Exam Physical Exam GENERAL: She is oriented to person, place, and time. She appears well- developed and well-nourished. She does not appear distressed. ____ HENT: Exam performed. Head: Normocephalic and atraumatic. Right Ear: External ear normal. No mastoid tenderness. Left Ear: External ear normal. No mastoid tenderness. Mouth/Throat: The oropharynx is clear and moist. No trismus in the jaw. No dental abscesses or uvula swelling. No oropharyngeal exudate or tonsillar abscesses. ____ EYES: Conjunctivae and EOM are normal. Pupils are equal, round, and reactive to light. Right eye exhibits no discharge. Left eye exhibits no discharge. No scleral icterus. ____ NECK: Normal range of motion. Neck supple. No JVD present. No spinous process tenderness present. No carotid bruit present. No rigidity. No tracheal deviation and normal range of motion present. No Brudzinski's sign and no Kernig 's sign noted. ____ CV: Normal rate, regular rhythm, normal heart sounds and intact distal pulses. There is no peripheral edema. Palpable radial pulses bue. ____ PULM/CHEST: Effort normal and breath sounds normal. No respiratory distress. No stridor. She has no wheezes. She has no rales. Chest Wall: She exhibits no tenderness. ____ ABD: The abdomen is soft. Bowel sounds are normal. She has no distension. No mass is present. There is no tenderness. There is no rebound, no guarding, no Diez's sign and no tenderness at McBurney's point. Rovsig negative MUSC/SKEL: Normal range of motion. There is no peripheral edema, tenderness or deformity. LYMPH: No cervical adenopathy. ____ NEURO: Alert and oriented x3. Cranial nerves 2-3 intact. SKIN: Skin is warm and dry. She is not diaphoretic. ____ PSYCH: She has a normal mood and affect. Her behavior is normal. Judgment and thought content normal. ____ Medical Decision & Procedures ER Provider Diagnostic Interpretation: Radiology results as stated below per my review and radiologist interpretation: CHEST 2 VIEWS ROUTINE HISTORY: 81 years-old Female cp acute atypical chest pain COMPARISON: Chest radiographs 03/08/2017 TECHNIQUE: AP and lateral views of the chest FINDINGS: Patient is rotated to the right. Cardiac silhouette is again enlarged, unchanged. Coronary arterial stent graft is seen. Left subclavian pacer is noted with leads appearing intact and unchanged. Atherosclerosis of the aorta. There are calcifications of the tracheobronchial tree. No pneumothorax, pleural effusion, focal airspace consolidation or overt pulmonary edema. Mild left hemidiaphragmatic elevation is unchanged. The bones appear osteoporotic. Unchanged anterior endplate compression deformity of the lower thoracic spine. IVC filter noted. Surgical clips project over the right upper abdomen. IMPRESSION: Cardiomegaly without acute process. The above report was generated using voice recognition software. It may contain grammatical, syntax or spelling errors. Electronically signed by: Michael Basilio M.D. 10/08/2017 3:27 PM Dictated Date/Time: 10/08/2017 3:25 PM Laboratory Results 10/08/17 14:00 Red Blood Count 4.35, Mean Corpuscular Volume 93.6, Mean Corpuscular Hemoglobin 31.0, Mean Corpuscular Hemoglobin Concent 33.2, Mean Platelet Volume 10.7, Neutrophils (%) (Auto) 59.0, Lymphocytes (%) (Auto) 29.3, Monocytes (%) (Auto) 9.9, Eosinophils (%) (Auto) 1.1, Basophils (%) (Auto) 0.4, Neutrophils # (Auto) 6.04, Lymphocytes # (Auto) 2.99, Monocytes # (Auto) 1.01, Eosinophils # (Auto) 0.11, Basophils # (Auto) 0.04 10/08/17 14:00 Test 10/08/17 14:00 10/08/17 17:19 White Blood Count 10.22 K/uL (4.8-10.8) Red Blood Count 4.35 M/uL (4.2-5.4) Hemoglobin 13.5 g/dL (12.0-16.0) Hematocrit 40.7 % (37-47) Mean Corpuscular Volume 93.6 fL (80-100) Mean Corpuscular Hemoglobin 31.0 pg (25-34) Mean Corpuscular Hemoglobin Concent 33.2 g/dl (32-36) Platelet Count 270 K/uL (130-400) Mean Platelet Volume 10.7 fL (7.4-10.4) Neutrophils (%) (Auto) 59.0 % Lymphocytes (%) (Auto) 29.3 % Monocytes (%) (Auto) 9.9 % Eosinophils (%) (Auto) 1.1 % Basophils (%) (Auto) 0.4 % Neutrophils # (Auto) 6.04 K/uL (1.4-6.5) Lymphocytes # (Auto) 2.99 K/uL (1.2-3.4) Monocytes # (Auto) 1.01 K/uL (0.11-0.59) Eosinophils # (Auto) 0.11 K/uL (0-0.5) Basophils # (Auto) 0.04 K/uL (0-0.2) RDW Standard Deviation 51.8 fL (36.4-46.3) RDW Coefficient of Variation 15.1 % (11.5-14.5) Immature Granulocyte % (Auto) 0.3 % Immature Granulocyte # (Auto) 0.03 K/uL (0.00-0.02) Anion Gap 5.0 mmol/L (3-11) Est Creatinine Clear Calc Drug Dose 29.5 ml/min Estimated GFR () 72.9 Estimated GFR (Non- 62.9 BUN/Creatinine Ratio 15.7 (10-20) Calcium Level 9.3 mg/dl (8.5-10.1) Troponin I < 0.015 ng/ml (0-0.045) Laboratory results reviewed by me Medications Administered Medications (Trade) Dose Ordered Sig/Pedro Route Start Time Stop Time Status Last Admin Dose Admin Tramadol HCl (Ultram Tab) 50 mg NOW STAT PO 10/08/17 17:52 10/08/17 17:53 DC 10/08/17 17:58 50 MG ECG Per My Interpretation Indication: chest pain Rate (beats per minute): 73 Rhythm: other (atrial paced rhythm ) Findings: other (SC intervals 242, QRS and QTC within normal limits, no ST elevation or depression, baseline artifact to the patients resting tremor ) ED Course 1346: The patient was evaluated in room B6. A complete history and physical exam was performed. 1504: Maximiliano from [facility] called at this time. He states he interrogated the pacemaker and there were no acute abnormalities. 1542: I discussed the patient's case with Dr. Causey, [facility] Cardiology. He agreed the patient should be admitted to the hospitalist service for further evaluation. 1558: Vital signs are stable. EKG, imaging and labs are within normal limits. Went to discuss option of admission. Family and patient are against this. Had a long discussion with them about the benefits of staying and the risks of leaving. Shared decision making was used. A repeated troponin will be ordered. If the repeat troponin is negative, the patient will be discharged with follow- up PCP and cardiology outpatient care. If positive, the patient will be admitted. 1758: Vital signs stable. Repeat troponin negative. Patient was asking for her home dose of tramadol before leaving the emergency department. Not reporting any chest pain or difficulty breathing at the time of discharge. DISCHARGE - Plan of care discussed with family and questions answered. The family was given both verbal and printed discharge instructions. The family verbalized understanding and ability to comply. The family is to seek outpatient follow up as noted in the discharge instructions. The family verbalized understanding and ability to comply. The family is discharged in stable condition. The family was instructed to return for worsening symptoms. Medical Decision Vital signs are stable. EKG, imaging and labs including 2 sets of troponins are within normal limits. Family and patient are against admission to the hospital for rule out ACS. Had a long discussion with them about the benefits of staying and the risks of leaving. Patient will follow up with her PCP on Tuesday and cardiology on Tuesday. DISCHARGE - Plan of care discussed with family and questions answered. The family was given both verbal and printed discharge instructions. The family verbalized understanding and ability to comply. The family is to seek outpatient follow up as noted in the discharge instructions. The family verbalized understanding and ability to comply. The family is discharged in stable condition. The family was instructed to return for worsening symptoms. Medication Reconcilliation Current Medication List: was personally reviewed by me Blood Pressure Screening Patient's blood pressure: Elevated blood pressure Blood pressure disposition: Elevated BP felt to be situational Consults Time Called: 1530 Consulting Physician: Dr. Causey, [facility] Cardiology Returned Call: [phone] He agreed the patient should be admitted to the hospitalist service for further evaluation. Impression Primary Impression: Chest pain Scribe Attestation The scribe's documentation has been prepared under my direction and personally reviewed by me in its entirety. I confirm that the note above accurately reflects all work, treatment, procedures, and medical decision making performed by me. The chart was completed utilizing [employer] voice recognition software. Grammatical errors, random word insertions, pronoun errors, and incomplete sentences are an occasional consequence of this system due to software limitations, ambient noise, and hardware issues. Any formal questions or concerns about the content, text, or information contained within the body of this dictation should be directly addressed to the physician for clarification. Departure Information Referrals Analia Yates D.O. (PCP) Patient Instructions My [facility] Problem Qualifiers Primary Impression: Chest pain Chest pain type: unspecified Qualified Codes: R07.9 - Chest pain, unspecified
[2017-10-08 14:14] LABS: BASO % 0.4 %; BASO ABS # 0.04 K/uL (0-0.2); EOS % 1.1 %; EOS ABS # 0.11 K/uL (0-0.5); HEMATOCRIT 40.7 % (37-47); HEMOGLOBIN 13.5 g/dL (12.0-16.0); IG# 0.03 K/uL (0.00-0.02); LYMPH % 29.3 %; LYMPH ABS # 2.99 K/uL (1.2-3.4); MEAN CELL VOLUME 93.6 fL (80-100); MEAN CORPUSCULAR HGB CONC 33.2 g/dl (32-36); MEAN PLATELET VOLUME 10.7 fL (7.4-10.4); MONO % 9.9 %; MONO ABS # 1.01 K/uL (0.11-0.59); NEUT ABS # 6.04 K/uL (1.4-6.5); PLATELET COUNT 270 K/uL (130-400); RED CELL DISTRIBUTION WIDTH CV 15.1 % (11.5-14.5); RED CELL DISTRIBUTION WIDTH SD 51.8 fL (36.4-46.3); WHITE BLOOD COUNT 10.22 K/uL (4.8-10.8)
[2017-10-08 14:26] LABS: BLOOD UREA NITROGEN 14 mg/dl (7-18); CALCIUM 9.3 mg/dl (8.5-10.1); CARBON DIOXIDE 28 mmol/L (21-32); CREATININE 0.86 mg/dl (0.60-1.20); GLUCOSE 103 mg/dl (70-99); POTASSIUM 4.6 mmol/L (3.5-5.1); SODIUM 138 mmol/L (136-145)
[2017-10-08 14:31] VITALS: O2SAT 96
[2017-10-08] MEDS ORDERED: TRAM-10 PO (15:01)
[2017-10-08] MEDS ORDERED: ONDA4TAB46 PO (15:01)
--- NOTE | 2017-10-08 15:29 | DIAGNOSTIC IMAGING REPORT ---
CHEST 2 VIEWS ROUTINE HISTORY: 81 years-old Female cp acute atypical chest pain COMPARISON: Chest radiographs 03/08/2017 TECHNIQUE: AP and lateral views of the chest FINDINGS: Patient is rotated to the right. Cardiac silhouette is again enlarged, unchanged. Coronary arterial stent graft is seen. Left subclavian pacer is noted with leads appearing intact and unchanged. Atherosclerosis of the aorta. There are calcifications of the tracheobronchial tree. No pneumothorax, pleural effusion, focal airspace consolidation or overt pulmonary edema. Mild left hemidiaphragmatic elevation is unchanged. The bones appear osteoporotic. Unchanged anterior endplate compression deformity of the lower thoracic spine. IVC filter noted. Surgical clips project over the right upper abdomen. IMPRESSION: Cardiomegaly without acute process. The above report was generated using voice recognition software. It may contain grammatical, syntax or spelling errors. Electronically signed by: Michael Basilio M.D. 10/08/2017 3:27 PM Dictated Date/Time: 10/08/2017 3:25 PM
[2017-10-08 17:39] VITALS: O2SAT 98
[2017-10-08] MEDS ORDERED: TRAMADOL HCL 50 MG TAB PO STA (17:52)
[2017-10-08 17:58] VITALS: BP 147/109; PULSE 67
== END 2017-10-08 18:18 | disposition home or self-care (01) ==
LOC: C.EDB 13:27
DX: R07.9 Chest pain, unspecified (principal); Z95.0 Presence of cardiac pacemaker; I71.4 Abdominal aortic aneurysm, without rupture; I25.10 Atherosclerotic heart disease of native coronary artery without angina pectoris; G89.29 Other chronic pain; Z86.718 Personal history of other venous thrombosis and embolism; Z79.82 Long term (current) use of aspirin; Z88.8 Allergy status to other drugs, medicaments and biological substances; Z91.048 Other nonmedicinal substance allergy status; Z88.1 Allergy status to other antibiotic agents; Z88.6 Allergy status to analgesic agent; Z91.012 Allergy to eggs; Z88.2 Allergy status to sulfonamides

== ENCOUNTER 2018-03-09 18:56 | Emergency (ER) | payer OTHER ==
[~2018-03-09] VITALS: Ht 147.3 cm; Wt 39.0 kg
[~2018-03-09 18:56] MED LIST changes: -AMOX500C3 PO; +ONDA4TAB46 PO; +TRAM-10 PO
[2018-03-09 19:06] VITALS: TEMP 36.7; Ht 147.3 cm; Wt 39.0 kg
[2018-03-09 19:23] VITALS: O2SAT 95
[2018-03-09] MEDS ORDERED: SODIUM CHLORIDE 0.9% 1000ML 500 ML IV STA (19:36)
[2018-03-09 19:45] LABS: BASO % 0.4 %; BASO ABS # 0.03 K/uL (0-0.2); EOS % 1.5 %; EOS ABS # 0.12 K/uL (0-0.5); HEMATOCRIT 43.1 % (37-47); IG# 0.01 K/uL (0.00-0.02); LYMPH % 40.5 %; LYMPH ABS # 3.28 K/uL (1.2-3.4); MEAN CELL VOLUME 94.1 fL (80-100); MEAN CORPUSCULAR HEMOGLOBIN 30.6 pg (25-34); MEAN CORPUSCULAR HGB CONC 32.5 g/dl (32-36); MEAN PLATELET VOLUME 10.2 fL (7.4-10.4); MONO ABS # 0.89 K/uL (0.11-0.59); NEUT % 46.5 %; NEUT ABS # 3.76 K/uL (1.4-6.5); PLATELET COUNT 312 K/uL (130-400); RED CELL DISTRIBUTION WIDTH CV 13.6 % (11.5-14.5); RED CELL DISTRIBUTION WIDTH SD 46.9 fL (36.4-46.3); WHITE BLOOD COUNT 8.09 K/uL (4.8-10.8)
[2018-03-09] MEDS ORDERED: OPTIRAY 320 IV PRN (19:45)
[2018-03-09 20:14] LABS: ALBUMIN 2.9 gm/dl (3.4-5.0); ALKALINE PHOSPHATASE 122 U/L (45-117); ALT/SGPT 14 U/L (12-78); AST/SGOT 18 U/L (15-37); BLOOD UREA NITROGEN 10 mg/dl (7-18); CALCIUM 9.1 mg/dl (8.5-10.1); CARBON DIOXIDE 28 mmol/L (21-32); CREATININE 0.84 mg/dl (0.60-1.20); GLUCOSE 122 mg/dl (70-99); LIPASE 66 U/L (73-393); POTASSIUM 3.9 mmol/L (3.5-5.1); SODIUM 137 mmol/L (136-145); TOTAL PROTEIN 7.3 gm/dl (6.4-8.2)
--- NOTE | 2018-03-09 20:33 | DIAGNOSTIC IMAGING REPORT ---
SINGLE VIEW CHEST CLINICAL HISTORY: Generalized abdominal pain. FINDINGS: An AP, portable, upright chest radiograph is compared to study dated 10/08/2017. The examination is significantly degraded by portable technique and patient rotation. The patient's head partially secures the right apex. A 2-lead cardiac pacemaker is unchanged in position and partially obscures the left lower chest. The heart is enlarged and there is atherosclerotic calcification of the thoracic aorta. The pulmonary vasculature is noncongested. A small left pleural effusion is identified with left basilar opacities. No pneumothorax is seen. The skeletal structures are osteopenic. The bony thorax is grossly intact. An IVC filter and surgical clips are noted in the upper abdomen. IMPRESSION: 1. Cardiomegaly and cardiac pacemaker. There is no radiographic evidence of congestive failure. 2. There is a small left pleural effusion. Left basilar opacities likely represent atelectasis. Clinical correlation will be required. Electronically signed by: Woodrow Salazar M.D. 03/09/2018 8:32 PM Dictated Date/Time: 03/09/2018 8:30 PM
[2018-03-09] MEDS ORDERED: ONDANSETRON INJ 2 MG/ML 2 ML VIAL IV STA (21:07)
--- NOTE | 2018-03-09 21:07 | DIAGNOSTIC IMAGING REPORT ---
ULTRASOUND LEFT LOWER EXTREMITY VENOUS CLINICAL HISTORY: Left leg pain. COMPARISON STUDY: Left lower extremity venous ultrasound dated 10/09/2016. TECHNIQUE: Real-time, grayscale, and color Doppler sonography of the deep veins of the left lower extremity was performed from the inguinal crease to the calf. Compression and augmentation were utilized. FINDINGS: There is trace chronic deep venous thrombosis seen in the distal superficial femoral vein. There is no sonographic evidence of acute deep venous thrombosis throughout the left lower extremity. The common femoral vein, superficial femoral, and popliteal veins are normally compressible. The greater saphenous vein and the profunda femoris vein at the junction with the common femoral vein are clear. The visualized calf veins are patent. IMPRESSION: 1. There is no sonographic evidence of acute deep venous thrombosis identified in the left lower extremity. 2. Trace chronic thrombus is seen in the distal left superficial femoral vein. Electronically signed by: Woodrow Salazar M.D. 03/09/2018 9:06 PM Dictated Date/Time: 03/09/2018 9:04 PM
[2018-03-09] MEDS ORDERED: CIPR-255 PO (21:20)
--- NOTE | 2018-03-09 22:30 | DIAGNOSTIC IMAGING REPORT ---
CT SCAN OF THE ABDOMEN AND PELVIS WITH IV CONTRAST CLINICAL HISTORY: O quadrant abdominal pain. Nausea. COMPARISON STUDY: Abdominal CT dated 10/09/2016 and 04/23/2016. TECHNIQUE: Following the IV administration of 92 cc of Optiray 320, CT scan of the abdomen and pelvis is performed from the lung bases to the proximal femora. Images are reviewed in the axial, sagittal, and coronal planes. IV contrast was administered without complication. A dose lowering protocol was used adhering to the principles of ALARA. The examination is degraded by streak artifact from the patient's arms which could not be elevated above the abdomen as well as by motion artifact. CT DOSE: 271.51 mGy.cm FINDINGS: Lung bases: The heart is enlarged and without pericardial effusion. Pacemaker leads are noted. The coronary arteries are densely calcified. There is chronic elevation of the left hemidiaphragm with left basilar atelectasis. There are trace pleural effusions. No airspace consolidation is identified. Liver: The contrast-enhanced liver is normal in size, contour, and attenuation. There is no intrahepatic biliary ductal dilatation. The hepatic veins and portal veins are patent. Gallbladder: Unremarkable. Spleen: The spleen is diminutive. Pancreas: Markedly atrophic and grossly unremarkable. Adrenal glands: Unremarkable. Kidneys: The kidneys are atrophic, asymmetrically greater on the right. Postoperative change is suggested in the right upper pole. The kidneys enhance symmetrically. Numerous foci of parenchymal scarring are seen bilaterally. Small nonobstructing calculi are seen bilaterally. A 3.2 cm cyst arises from the upper pole of the left kidney Additional subcentimeter cortical hypodensities also likely represent cysts but are too small for definitive characterization. Abdominal vasculature: The abdominal aorta is normal in course and caliber noting advanced atherosclerotic calcification. There is focal ectasia and a focal dissection seen in the infrarenal abdominal aorta on axial image #139. An IVC filter is in place at the level of the renal veins. Stomach and bowel: There is a large hiatal hernia, with over half of the stomach located in the thoracic cavity. The hernia is filled with fluid. The duodenum is normal in configuration. There is rectosigmoid fecal impaction and moderate constipation. No bowel obstruction is seen. There is advanced sigmoid diverticulosis without CT evidence of acute diverticulitis. The appendix is well-visualized and normal. Peritoneum: There is no intraperitoneal free air or abdominal ascites. There is a small fat-containing umbilical hernia. Lymphadenopathy: None. Pelvic viscera: The bladder wall appears mildly thickened and hyperemic. Bladder calculi are again noted. The uterus is normal as imaged. The ovaries are enlarged and there are numerous bilateral ovarian cystic lesions. The largest is on the right and measures up to 3.9 cm. The are similar appearance to prior examinations. Findings suggest pelvic floor prolapse. Skeletal structures: The skeletal structures are osteopenic. There is mild lumbosacral spondylosis. There is a moderate compression deformity of L5. A mild/moderate compression deformity is again seen involving T11. No lytic or blastic lesions are seen. IMPRESSION: 1. Streak and motion compromised examination. 2. There is a large hiatal hernia. The hernia sac and the distal esophagus are filled with fluid. Note that this may place the patient at risk for aspiration. 3. There is a moderate compression deformity of L5, age-indeterminate but new from 10/09/2016. Correlate for point tenderness. 4. There is rectosigmoid fecal impaction and moderate constipation. No bowel obstruction is seen. 5. There is advanced diverticulosis of the left colon without CT evidence of acute diverticulitis. 6. There are bilateral nonobstructing renal calculi. Bladder calculi are also seen. 7. The bladder wall appears thickened and hyperemic. Correlate clinically and with urinalysis for evidence of cystitis. 8. The kidneys are atrophic and postoperative change is suggested in the right. 9. There is advanced atherosclerotic calcification of the abdominal aorta. Focal ectasia and a focal dissection are again seen in the infrarenal abdominal aorta, similar in appearance to previous. 10. The ovaries are enlarged and there are numerous cystic-appearing lesions. This is similar to prior studies and remains pathologically indeterminant. Neoplasm is not excluded, and if not already performed nonemergent gynecology follow-up is recommended. 11. Cardiomegaly and trace pleural effusions. 12. Additional findings as above. Electronically signed by: Woodrow Salazar M.D. 03/09/2018 10:29 PM Dictated Date/Time: 03/09/2018 10:17 PM
[2018-03-09] MEDS ORDERED: CIPROFLOXACIN 500 MG TAB PO STA (22:39)
[2018-03-09 23:18] VITALS: BP 153/72; PULSE 78; O2SAT 93
--- NOTE | 2018-03-09 23:28 | EMERGENCY ROOM VISIT NOTE ---
History Report prepared by Tom: Nadege Acevedo Under the Supervision of: Dr. Edgardo Schwartz M.D. First contact with patient: 19:25 Chief Complaint: ILLNESS Stated Complaint: DOESN'T FEEL WELL, LEFT LEG PAIN History of Present Illness The patient is a 82 year old female who presents to the Emergency Room with complaints of worsening left leg pain that onset at 1600 today. The patient describes the pain as sharp. She notes that the pain radiates into her left arm and left side. Per daughter, the patient favors her left side when walking. The patient states that she took a Tramadol at 1300 today for the leg pain. The patient complains of indigestion, difficulty eating, chest pain, back pain, hip pain, difficulty walking, and numbness of the left leg. The patient denies difficulty breathing. 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 The patient denies any recent falls. Source of History: patient, family Onset: Today at 1600 Position: leg (left) Quality: sharp Timing: worsening Associated Symptoms: + chest pain, + back pain, + numbness (left leg), No SOB Note: The patient complains of left arm pain, left side pain, indigestion, difficulty eating, hip pain, and difficulty walking. Review of Systems See HPI for pertinent positives and negatives. A total of ten systems were reviewed and were otherwise negative. Past Medical & Surgical Medical Problems: (1) Abdominal aortic aneurysm dissection (2) Abdominal pain (3) Brainstem hemorrhage (4) CAD (coronary artery disease) (5) Chronic pain (6) Left leg DVT (7) Pacemaker (8) PAT (paroxysmal atrial tachycardia) (9) Sinoatrial node dysfunction Surgical Problems: (1) H/O splenectomy (2) History of repair of hiatal hernia (3) History of tonsillectomy and adenoidectomy (4) S/P IVC filter Family History Heart disease Hypertension Kidney disease Kidney stones Social History Smoking Status: Never Smoker Alcohol Use: none Marital Status: Housing Status: lives alone Occupation Status: retired Current/Historical Medications Scheduled Aspirin (Aspirin Ec), 81 MG PO DAILY Ciprofloxacin Hcl (Cipro), 500 MG PO BID Dronabinol (Marinol), 2.5 MG PO BID Metoprolol Tartrate (Lopressor) (Lopressor), 50 MG PO QAM Metoprolol Tartrate (Lopressor) (Lopressor), 25 MG PO QPM Scheduled PRN Ondansetron Hcl (Zofran), 4 MG PO for Nausea Tramadol (Ultram), 1 TAB PO TID PRN for Pain Allergies Coded Allergies: Cephalexin (Verified Allergy, Mild, 03/09/18) Codeine (Verified Allergy, Unknown, edema airway,rash & hives, 03/09/18) Egg (Verified Allergy, Unknown, ALLERGY TO EGG WHITES, 03/09/18) Ketorolac (Verified Allergy, Unknown, 03/09/18) Omeprazole (Verified Allergy, Unknown, unknown, 03/09/18) gmg Propoxyphene (Verified Allergy, Unknown, 03/09/18) Sulfa Drugs (Verified Allergy, Unknown, 03/09/18) Diclofenac (Verified Adverse Reaction, Severe, HIGH BP, 03/09/18) Isopropyl Alcohol (Verified Adverse Reaction, Severe, HIGH BP, 03/09/18) Propylene Glycol (Verified Adverse Reaction, Severe, HIGH BP, 03/09/18) Tizanidine (Verified Adverse Reaction, Intermediate, DELIRIUM, 03/09/18) Sucralfate (Verified Adverse Reaction, Unknown, itching,n/v, 03/09/18) gmg Physical Exam Vital Signs Date Time Temp Pulse Resp B/P (MAP) Pulse Ox O2 Delivery O2 Flow Rate FiO2 03/09/18 21:04 93 20 210/88 91 Room Air 03/09/18 19:23 95 Room Air 03/09/18 19:20 79 03/09/18 19:06 36.7 76 20 166/75 97 Room Air Physical Exam GENERAL: Awake, frail appearing HENT: Normocephalic, atraumatic. Oropharynx unremarkable. EYES: Normal conjunctiva. Sclera non-icteric. NECK: Supple. No nuchal rigidity. RESPIRATORY: Clear to auscultation. No wheezes. Normal respiratory effort. CARDIAC: Normal rate. Normal rhythm. Extremities warm and well perfused. GI: Soft, non-distended. No tenderness to palpation. No rebound or guarding. No masses. RECTAL: Deferred. MUSCULOSKELETAL: Atraumatic. Chest examination reveals no tenderness. There is no CVA tenderness to palpation. UPPER EXTREMITIES: Mild to moderate left upper extremity contractures without significant erythema or swelling. LOWER EXTREMITIES: Left lower extremity with muscle wasting. No significant erythema or rash appreciated. NEURO: Decreased left upper and lower extremity sensation. Near paralysis reported at baseline here. No facial droop or slurred speech. SKIN: Warm and dry. No rash or jaundice noted. Medical Decision & Procedures ER Provider Diagnostic Interpretation: Radiology results as stated below per my review and radiologist interpretation: ULTRASOUND LEFT LOWER EXTREMITY VENOUS CLINICAL HISTORY: Left leg pain. COMPARISON STUDY: Left lower extremity venous ultrasound dated 10/09/2016. TECHNIQUE: Real-time, grayscale, and color Doppler sonography of the deep veins of the left lower extremity was performed from the inguinal crease to the calf. Compression and augmentation were utilized. FINDINGS: There is trace chronic deep venous thrombosis seen in the distal superficial femoral vein. There is no sonographic evidence of acute deep venous thrombosis throughout the left lower extremity. The common femoral vein, superficial femoral, and popliteal veins are normally compressible. The greater saphenous vein and the profunda femoris vein at the junction with the common femoral vein are clear. The visualized calf veins are patent. IMPRESSION: 1. There is no sonographic evidence of acute deep venous thrombosis identified in the left lower extremity. 2. Trace chronic thrombus is seen in the distal left superficial femoral vein. Electronically signed by: Woodrow Salazar M.D. 03/09/2018 9:06 PM Dictated Date/Time: 03/09/2018 9:04 PM SINGLE VIEW CHEST CLINICAL HISTORY: Generalized abdominal pain. FINDINGS: An AP, portable, upright chest radiograph is compared to study dated 10/08/2017. The examination is significantly degraded by portable technique and patient rotation. The patient's head partially secures the right apex. A 2-lead cardiac pacemaker is unchanged in position and partially obscures the left lower chest. The heart is enlarged and there is atherosclerotic calcification of the thoracic aorta. The pulmonary vasculature is noncongested. A small left pleural effusion is identified with left basilar opacities. No pneumothorax is seen. The skeletal structures are osteopenic. The bony thorax is grossly intact. An IVC filter and surgical clips are noted in the upper abdomen. IMPRESSION: 1. Cardiomegaly and cardiac pacemaker. There is no radiographic evidence of congestive failure. 2. There is a small left pleural effusion. Left basilar opacities likely represent atelectasis. Clinical correlation will be required. Electronically signed by: Woodrow Salazar M.D. 03/09/2018 8:32 PM Dictated Date/Time: 03/09/2018 8:[address] SCAN OF THE ABDOMEN AND PELVIS WITH IV CONTRAST CLINICAL HISTORY: O quadrant abdominal pain. Nausea. COMPARISON STUDY: Abdominal CT dated 10/09/2016 and 04/23/2016. TECHNIQUE: Following the IV administration of 92 cc of Optiray 320, CT scan of the abdomen and pelvis is performed from the lung bases to the proximal femora. Images are reviewed in the axial, sagittal, and coronal planes. IV contrast was administered without complication. A dose lowering protocol was used adhering to the principles of ALARA. The examination is degraded by streak artifact from the patient's arms which could not be elevated above the abdomen as well as by motion artifact. CT DOSE: 271.51 mGy.cm FINDINGS: Lung bases: The heart is enlarged and without pericardial effusion. Pacemaker leads are noted. The coronary arteries are densely calcified. There is chronic elevation of the left hemidiaphragm with left basilar atelectasis. There are trace pleural effusions. No airspace consolidation is identified. Liver: The contrast-enhanced liver is normal in size, contour, and attenuation. There is no intrahepatic biliary ductal dilatation. The hepatic veins and portal veins are patent. Gallbladder: Unremarkable. Spleen: The spleen is diminutive. Pancreas: Markedly atrophic and grossly unremarkable. Adrenal glands: Unremarkable. Kidneys: The kidneys are atrophic, asymmetrically greater on the right. Postoperative change is suggested in the right upper pole. The kidneys enhance symmetrically. Numerous foci of parenchymal scarring are seen bilaterally. Small nonobstructing calculi are seen bilaterally. A 3.2 cm cyst arises from the upper pole of the left kidney Additional subcentimeter cortical hypodensities also likely represent cysts but are too small for definitive characterization. Abdominal vasculature: The abdominal aorta is normal in course and caliber noting advanced atherosclerotic calcification. There is focal ectasia and a focal dissection seen in the infrarenal abdominal aorta on axial image #139. An IVC filter is in place at the level of the renal veins. Stomach and bowel: There is a large hiatal hernia, with over half of the stomach located in the thoracic cavity. The hernia is filled with fluid. The duodenum is normal in configuration. There is rectosigmoid fecal impaction and moderate constipation. No bowel obstruction is seen. There is advanced sigmoid diverticulosis without CT evidence of acute diverticulitis. The appendix is well-visualized and normal. Peritoneum: There is no intraperitoneal free air or abdominal ascites. There is a small fat-containing umbilical hernia. Lymphadenopathy: None. Pelvic viscera: The bladder wall appears mildly thickened and hyperemic. Bladder calculi are again noted. The uterus is normal as imaged. The ovaries are enlarged and there are numerous bilateral ovarian cystic lesions. The largest is on the right and measures up to 3.9 cm. The are similar appearance to prior examinations. Findings suggest pelvic floor prolapse. Skeletal structures: The skeletal structures are osteopenic. There is mild lumbosacral spondylosis. There is a moderate compression deformity of L5. A mild/moderate compression deformity is again seen involving T11. No lytic or blastic lesions are seen. IMPRESSION: 1. Streak and motion compromised examination. 2. There is a large hiatal hernia. The hernia sac and the distal esophagus are filled with fluid. Note that this may place the patient at risk for aspiration. 3. There is a moderate compression deformity of L5, age-indeterminate but new from 10/09/2016. Correlate for point tenderness. 4. There is rectosigmoid fecal impaction and moderate constipation. No bowel obstruction is seen. 5. There is advanced diverticulosis of the left colon without CT evidence of acute diverticulitis. 6. There are bilateral nonobstructing renal calculi. Bladder calculi are also seen. 7. The bladder wall appears thickened and hyperemic. Correlate clinically and with urinalysis for evidence of cystitis. 8. The kidneys are atrophic and postoperative change is suggested in the right. 9. There is advanced atherosclerotic calcification of the abdominal aorta. Focal ectasia and a focal dissection are again seen in the infrarenal abdominal aorta, similar in appearance to previous. 10. The ovaries are enlarged and there are numerous cystic-appearing lesions. This is similar to prior studies and remains pathologically indeterminant. Neoplasm is not excluded, and if not already performed nonemergent gynecology follow-up is recommended. 11. Cardiomegaly and trace pleural effusions. 12. Additional findings as above. Electronically signed by: Woodrow Salazar M.D. 03/09/2018 10:29 PM Dictated Date/Time: 03/09/2018 10:17 PM Laboratory Results 03/09/18 19:30 Red Blood Count 4.58, Mean Corpuscular Volume 94.1, Mean Corpuscular Hemoglobin 30.6, Mean Corpuscular Hemoglobin Concent 32.5, Mean Platelet Volume 10.2, Neutrophils (%) (Auto) 46.5, Lymphocytes (%) (Auto) 40.5, Monocytes (%) (Auto) 11.0, Eosinophils (%) (Auto) 1.5, Basophils (%) (Auto) 0.4, Neutrophils # (Auto ) 3.76, Lymphocytes # (Auto) 3.28, Monocytes # (Auto) 0.89, Eosinophils # (Auto ) 0.12, Basophils # (Auto) 0.03 03/09/18 19:30 Test 03/09/18 19:30 03/09/18 20:00 White Blood Count 8.09 K/uL (4.8-10.8) Red Blood Count 4.58 M/uL (4.2-5.4) Hemoglobin 14.0 g/dL (12.0-16.0) Hematocrit 43.1 % (37-47) Mean Corpuscular Volume 94.1 fL (80-100) Mean Corpuscular Hemoglobin 30.6 pg (25-34) Mean Corpuscular Hemoglobin Concent 32.5 g/dl (32-36) Platelet Count 312 K/uL (130-400) Mean Platelet Volume 10.2 fL (7.4-10.4) Neutrophils (%) (Auto) 46.5 % Lymphocytes (%) (Auto) 40.5 % Monocytes (%) (Auto) 11.0 % Eosinophils (%) (Auto) 1.5 % Basophils (%) (Auto) 0.4 % Neutrophils # (Auto) 3.76 K/uL (1.4-6.5) Lymphocytes # (Auto) 3.28 K/uL (1.2-3.4) Monocytes # (Auto) 0.89 K/uL (0.11-0.59) Eosinophils # (Auto) 0.12 K/uL (0-0.5) Basophils # (Auto) 0.03 K/uL (0-0.2) RDW Standard Deviation 46.9 fL (36.4-46.3) RDW Coefficient of Variation 13.6 % (11.5-14.5) Immature Granulocyte % (Auto) 0.1 % Immature Granulocyte # (Auto) 0.01 K/uL (0.00-0.02) Anion Gap 7.0 mmol/L (3-11) Est Creatinine Clear Calc Drug Dose 31.2 ml/min Estimated GFR () 74.5 Estimated GFR (Non- 64.3 BUN/Creatinine Ratio 12.4 (10-20) Calcium Level 9.1 mg/dl (8.5-10.1) Magnesium Level 2.3 mg/dl (1.8-2.4) Total Bilirubin 0.3 mg/dl (0.2-1) Direct Bilirubin 0.1 mg/dl (0-0.2) Aspartate Amino Transf (AST/SGOT) 18 U/L (15-37) Alanine Aminotransferase (ALT/SGPT) 14 U/L (12-78) Alkaline Phosphatase 122 U/L (45-117) Troponin I < 0.015 ng/ml (0-0.045) Total Protein 7.3 gm/dl (6.4-8.2) Albumin 2.9 gm/dl (3.4-5.0) Lipase 66 U/L (73-393) Urine Color YELLOW Urine Appearance CLOUDY (CLEAR) Urine pH 7.0 (4.5-7.5) Urine Specific [place] 1.007 (1.000-1.030) Urine Protein NEG (NEG) Urine Glucose (UA) NEG (NEG) Urine Ketones NEG (NEG) Urine Occult Blood TRACE (NEG) Urine Nitrite NEG (NEG) Urine Bilirubin NEG (NEG) Urine Urobilinogen NEG (NEG) Urine Leukocyte Esterase LARGE (NEG) Urine WBC (Auto) >30 /hpf (0-5) Urine RBC (Auto) 0-4 /hpf (0-4) Urine Hyaline Casts (Auto) 1-5 /lpf (0-5) Urine Epithelial Cells (Auto) 10-20 /lpf (0-5) Urine Bacteria (Auto) 4+ (NEG) Laboratory results reviewed by me Medications Administered Medications (Trade) Dose Ordered Sig/Pedro Route Start Time Stop Time Status Last Admin Dose Admin Sodium Chloride 500 ml @ 999 mls/hr Q31M STAT IV 03/09/18 19:36 03/09/18 20:06 DC 03/09/18 20:26 999 MLS/HR Ondansetron HCl (Zofran Inj) 4 mg NOW STAT IV 03/09/18 21:07 03/09/18 21:08 DC 03/09/18 21:37 4 MG Ciprofloxacin (Cipro Tab) 500 mg NOW STAT PO 03/09/18 22:39 03/09/18 22:40 DC 03/09/18 23:01 500 MG ECG Per My Interpretation Indication: chest pain Rate (beats per minute): 73 Rhythm: other (atrial paced) Findings: other (Normal QRS interval, no ST seg elevation, non-specific V6 AVL T wave inversion. ) Change: no significant change Change: No significant change from 10/08/2017. ED Course 1925: The patient was evaluated in room C12B. A complete history and physical exam was performed. 1935: Ordered Sodium Chloride 500 ml @ 999 mls/hr IV. 1944: Ordered Ioversol 100 ml IV. 2106: Ordered Zofran Inj 4 mg IV. 2238: Ordered Cipro Tab 500 mg PO. 2239: I reevaluated the patient. Discussed results and discharge instructions: she verbalized understanding and agreement. The patient is ready for discharge. Medical Decision Differential diagnosis: Etiologies such as appendicitis, diverticulitis, PUD, biliary pathology, UTI, pancreatitis, obstruction, mesenteric ischemia, aortic pathology, infections, inflammatory bowel disease, renal colic, DVT, muscle spasm, as well as others were entertained. Patient presents complaining of intermittent sharp pains in her left upper and lower extremity. Limited mobility care after prior stroke. Sharp in nature and intermittent. Also intermittently some sharp pain in her lower back and indigestion left upper quadrant pain. Happened around 430p today. Intermittently takes tramadol which helps his symptoms. Little bit of chest pain earlier with supper. No significant falls reported. No new numbness or weakness. We will exclude DVT with ultrasound of the lower extremity but lower suspicion. No evidence of cellulitis. Could possibly related to UTI or other infectious etiologies including possible intra-abdominal complications. CT abdomen pelvis to be completed. EKG and troponin were completed on patient not having active chest pain at this time. The sharp pains in the arm and leg are likely residual pain from her contractures from her old stroke. No electrolytes abnormality. Benign abdomen at this time. Doubt cauda equina. No leukocytosis. Trace left pleural effusion but do not believe this represents pneumonia. Will treat with Cipro for UTI. She has tolerated this before. Negative troponin. CT and ultrasounds are negative for acute pathology. Discussed with him the chronic findings. Likely her infections making her underlying residual deficit from her stroke have increased pain. Nausea likely 2 /2 to UTI. Recommend outpatient follow-up. They are in agreement with this plan. Discussed return criteria and follow up. Medication Reconcilliation Current Medication List: was personally reviewed by me Blood Pressure Screening Patient's blood pressure: Elevated blood pressure Blood pressure disposition: Referred to PCP Impression Primary Impression: UTI (urinary tract infection) Additional Impressions: Extremity pain Abdominal pain Scribe Attestation The scribe's documentation has been prepared under my direction and personally reviewed by me in its entirety. I confirm that the note above accurately reflects all work, treatment, procedures, and medical decision making performed by me. Departure Information Dispostion Home / Self-Care Prescriptions Ciprofloxacin Hcl (CIPRO) 500 Mg Tab 500 MG PO BID, #20 TAB 0 Refills Prov: Edgardo Schwartz M.D. 03/09/18 Referrals Analia Yates D.O. (PCP) Forms HOME CARE DOCUMENTATION FORM, IMPORTANT VISIT INFORMATION, WORK / SCHOOL INSTRUCTIONS Patient Instructions My [facility] Additional Instructions Please utilize antibiotic to help with your urine infection. If you have worsening symptoms or new concerns please represent here for reevaluation. If you experience significant chest pain please represent. Maintain hydration and eat to maintain her strength. Would recommend follow-up in the next 3-5 days with your regular doctor. Problem Qualifiers Primary Impression: UTI (urinary tract infection) Urinary tract infection type: acute cystitis Hematuria presence: without hematuria Qualified Codes: N30.00 - Acute cystitis without hematuria Additional Impressions: Extremity pain Extremity pain location: unspecified extremity Qualified Codes: M79.609 - Pain in unspecified limb Abdominal pain Abdominal location: left upper quadrant Qualified Codes: R10.12 - Left upper quadrant pain
== END 2018-03-09 23:18 | disposition home or self-care (01) ==
LOC: C.EDB 18:57 → C.EDC 23:18
DX: N30.00 Acute cystitis without hematuria (principal); R10.12 Left upper quadrant pain; M79.609 Pain in unspecified limb; I25.10 Atherosclerotic heart disease of native coronary artery without angina pectoris; Z86.73 Personal history of transient ischemic attack (TIA), and cerebral infarction without residual deficits; Z86.718 Personal history of other venous thrombosis and embolism; Z95.0 Presence of cardiac pacemaker; Z79.82 Long term (current) use of aspirin; Z79.899 Other long term (current) drug therapy; Z88.5 Allergy status to narcotic agent; Z88.2 Allergy status to sulfonamides; Z88.8 Allergy status to other drugs, medicaments and biological substances; Z91.012 Allergy to eggs

== ENCOUNTER 2018-10-11 18:30 | Inpatient (IN) ==
[2018-10-11] MEDS ORDERED: fentaNYL citrate 100 MCG/2 ML VIAL IV STA (20:38)
[2018-10-11] MEDS ORDERED: ONDANSETRON INJ 2 MG/ML 2 ML VIAL IV STA ×2 (20:38→22:33)
[2018-10-11] MEDS ORDERED: SODIUM CHLORIDE 0.9% 1000ML 1,000 ML IV SCH (20:45)
--- NOTE | 2018-10-11 21:17 | Emergency Department Note ---
Entered by Nery Hawk acting as a scribe for History of Present Illness General Chief complaint: Back Injury/Pain Stated complaint: back pain light headed and nausea Source: patient and family (daughter) Mode of arrival: ambulatory Limitations: no limitations History of Present Illness Provider complaint: urinary symptoms Onset (ago): day(s) (a few) Location: genitals Pain Consistency: + other (persistent) Maximum Pain Intensity: 10 Quality: + other (urinary) Associated symptoms: + nausea/vomiting and + other (back pain, left leg pain, dizzy, sinus pressure); no fever/chills The patient is an 82 year old female who presents to the Emergency Room with complaints of a persistent urinary symptoms that began a few days ago. The patient reports that she believes her symptoms feel similar to her previous UTI which was about 2 weeks ago. Per daughter, the patient was treated with cefdinir for this as well as pneumonia. The patient states that she has had back pain but denies any recent falls. The patient also notes she has been dizzy and feels as if she is going to pass out. Per daughter, the patient has also been expe riencing sinus pressure. She denies any fevers. She also reports that she has had left leg pain and notes she has a history of blood clots. The daughter also notes that the patient has a history of a stroke and is unable to ambulate. The patient reports that she has been nauseous as well. Home Medications Home Medications Medication Instructions Recorded Confirmed Type Restasis 1 drp OPB UD 08/08/18 10/11/18 History dronabinol [Marinol] 2.5 mg PO BID PRN 08/08/18 10/11/18 History fluticasone [Flonase Allergy 2 spray INTRANASAL DAILY PRN 08/08/18 10/11/18 History Relief] gabapentin [Neurontin] 300 mg PO TID 08/08/18 10/11/18 History metoprolol tartrate [Lopressor] 50 mg PO BID 08/08/18 10/11/18 History ondansetron HCl [Zofran] 4 mg PO TID PRN 08/08/18 10/11/18 History polyethylene glycol 3350 [Miralax] 17 g PO DAILY PRN 08/08/18 10/11/18 History aspirin 81 mg PO QAM 10/11/18 10/11/18 History cefdinir 300 mg PO BID 5 Days #10 cap 10/13/18 Rx oseltamivir [Tamiflu] 30 mg PO BID #9 cap 10/13/18 Rx Allergies Allergy/AdvReac Type Severity Reaction Status Date / Time cephalexin Allergy Intermediate Hives Verified 10/13/18 09:12 codeine Allergy Unknown edema Verified 08/08/18 20:30 airway,rash & hives egg Allergy Unknown ALLERGY TO Verified 08/08/18 20:30 EGG WHITES ketorolac Allergy Unknown Unknown Verified 08/08/18 20:30 omeprazole Allergy Unknown unknown Verified 08/08/18 20:30 propoxyphene Allergy Unknown Unknown Verified 08/08/18 20:30 Sulfa (Sulfonamide Allergy Unknown Unknown Verified 08/08/18 20:30 Antibiotics) capsaicin AdvReac Severe HIGH BP Verified 08/08/18 20:30 diclofenac AdvReac Severe HIGH BP Verified 08/08/18 20:30 Diclopak AdvReac Severe HIGH BP Verified 03/09/18 20:00 isopropyl alcohol AdvReac Severe HIGH BP Verified 08/08/18 20:30 propylene glycol AdvReac Severe HIGH BP Verified 08/08/18 20:30 tizanidine AdvReac Intermediate DELIRIUM Verified 03/09/18 20:00 sucralfate AdvReac Unknown itching,n/v Verified 03/09/18 20:00 Past Med/Surg History Medical History CAD (coronary artery disease) (Chronic) "left cx PCI 2003" Sinoatrial node dysfunction (Chronic) PAT (paroxysmal atrial tachycardia) (Chronic) 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 and A total of 10 systems reviewed and were otherwise negative Physical Exam Vital Signs Vital Signs - 24 hr 10/12/18 23:00 10/13/18 00:00 10/13/18 07:51 Temperature 37.3 C 36.7 C Temperature Source Oral Oral Pulse Rate [Right Finger] 72 67 Respiratory Rate 16 16 Respiratory Effort / Characteristics Non-Labored Spontaneous Respiratory Depth Normal Respiratory Pattern Regular Blood Pressure [Left Arm] 144/79 H 143/63 H Blood Pressure Mean [Left Arm] 100 89 Blood Pressure Position [Left Arm] Lying Pulse Oximetry 90 93 Oxygen Delivery Method Room Air Room Air Room Air 10/13/18 08:00 10/13/18 10:46 Temperature 36.7 C Temperature Source Pulse Rate [Right Finger] 67 Respiratory Rate 16 Respiratory Effort / Characteristics Non-Labored Spontaneous Respiratory Depth Normal Respiratory Pattern Regular Blood Pressure [Left Arm] 143/63 H Blood Pressure Mean [Left Arm] Blood Pressure Position [Left Arm] Pulse Oximetry 93 Oxygen Delivery Method Room Air Vital signs reviewed. General: Chronically ill-appearing, elderly, thin, in no significant distress. Markedly kyphotic. HEENT: No scleral icterus, PERRLA, neck supple. Atraumatic. Cardiovascular: Regular rate and rhythm, no extra sounds. Pulmonary: Clear to auscultation bilaterally, normal work of breathing. Abdomen: Soft, nontender, nondistended, positive bowel sounds. Musculoskeletal: Atraumatic, no peripheral edema. tenderness along the mid lumbar spine, no step-off, no deformity. Limited ROM of the LUE and LLE. Neurologic: Patient awake alert and oriented x 3 Skin: Warm, dry, no rash. Course 2021: Past medical records reviewed. The patient was evaluated in room A4A, and a complete history and physical examination were performed. 2234: I discussed lorriight's findings with the patient and her daughter. They are agreeable with the treatment plan. 4: I reviewed the patient's case with Dr. Malissa Clinton Hospitalist. He will evaluate the patient for further management. Administered Medications Acetaminophen (Tylenol) 650 mg PO Q4H PRN PRN Reason: pain/fever Stop: 11/11/18 01:56 Last Admin: 10/12/18 07:49 Dose: 325 mg Documented by: [id number] Aspirin (Ecotrin Ectab) 81 mg PO QAM [facility] Stop: 11/11/18 08:59 Last Admin: 10/13/18 08:14 Dose: 81 mg Documented by: [id number] Admin: 10/12/18 07:45 Dose: 81 mg Documented by: [id number] Gabapentin (Neurontin) 300 mg PO TID [facility] Stop: 11/11/18 08:59 Last Admin: 10/13/18 13:45 Dose: 300 mg Documented by: [id number] Admin: 10/13/18 08:14 Dose: 300 mg Documented by: [id number] Admin: 10/12/18 21:01 Dose: 300 mg Documented by: [id number] Admin: 10/12/18 14:55 Dose: 300 mg Documented by: [id number] Admin: 10/12/18 07:45 Dose: 300 mg Documented by: [id number] Prochlorperazine 5 mg/ Syringe 5 mls @ 5 mls/min IV Q6H PRN PRN Reason: Nausea And Vomiting Stop: 11/11/18 01:56 Last Admin: 10/13/18 00:12 Dose: 5 mls/min Documented by: [id number] Ceftriaxone Sodium 1,000 mg/ (Dextrose) 50 mls @ 100 mls/hr IV DAILY@1200 PADMINI; Protocol Stop: 10/21/18 12:29 Last Infusion: 10/13/18 12:51 Dose: 0 mls/hr Documented by: [id number] Admin: 10/13/18 12:21 Dose: 100 mls/hr Documented by: [id number] Metoprolol Tartrate (Lopressor) 50 mg PO BID [facility] Stop: 11/11/18 08:59 Last Admin: 10/13/18 08:14 Dose: 50 mg Documented by: [id number] Admin: 10/12/18 21:01 Dose: 50 mg Documented by: [id number] Admin: 10/12/18 07:45 Dose: 50 mg Documented by: [id number] Oseltamivir Phosphate (Tamiflu) 30 mg PO BID [facility]; Protocol Stop: 10/18/18 14:29 Last Admin: 10/13/18 15:53 Dose: 30 mg Documented by: [id number] Tramadol HCl (Ultram) 25 - 50 mg PO Q4H PRN PRN Reason: Pain Stop: 11/11/18 01:56 Last Admin: 10/12/18 04:56 Dose: 25 mg Documented by: [id number] Discontinued Medications Fentanyl Citrate (Fentanyl Citrate) 25 mcg IV NOW STA Stop: 10/11/18 20:39 Last Admin: 10/11/18 21:45 Dose: 25 mcg Documented by: [id number] Sodium Chloride (Nss 1000ml) 1,000 mls @ 100 mls/hr IV .Q10H PADMINI Stop: 10/12/18 06:44 Last Infusion: 10/12/18 07:06 Dose: 0 mls/hr Documented by: [id number] Admin: 10/11/18 21:44 Dose: 100 mls/hr Documented by: [id number] Piperacillin Sod/Tazobactam Sod (Zosyn) 4.5 gm in 120 mls @ 240 mls/hr IV NOW ONE Stop: 10/11/18 23:02 Last Infusion: 10/11/18 23:50 Dose: 0 mls/hr Documented by: [id number] Admin: 10/11/18 22:44 Dose: 240 mls/hr Documented by: [id number] Sodium Chloride (Nss 1000ml) 1,000 mls @ 50 mls/hr IV .Q20H ONE Stop: 10/12/18 22:14 Last Infusion: 10/13/18 00:40 Dose: 0 mls/hr Documented by: [id number] Infusion: 10/12/18 20:02 Dose: 50 mls/hr Documented by: [id number] Infusion: 10/12/18 19:16 Dose: 0 mls/hr Documented by: [id number] Admin: 10/12/18 02:52 Dose: 50 mls/hr Documented by: [id number] Piperacillin Sod/Tazobactam (Sod 3.375 gm/ Dextrose) 115 mls @ 28.75 mls/hr IV Q8H PADMINI; Protocol Stop: 10/22/18 04:59 Last Infusion: 10/13/18 08:14 Dose: 0 mls/hr Documented by: [id number] Admin: 10/13/18 04:30 Dose: 28.8 mls/hr Documented by: [id number] Infusion: 10/13/18 00:40 Dose: 0 mls/hr Documented by: [id number] Admin: 10/12/18 21:01 Dose: 28.8 mls/hr Documented by: [id number] Infusion: 10/12/18 18:57 Dose: 0 mls/hr Documented by: [id number] Admin: 10/12/18 14:55 Dose: 28.8 mls/hr Documented by: [id number] Piperacillin Sod/Tazobactam (Sod 3.375 gm/ Dextrose) 115 mls @ 230 mls/hr IV NOW ONE; Protocol Stop: 10/12/18 09:29 Last Infusion: 10/12/18 09:30 Dose: 0 mls/hr Documented by: [id number] Admin: 10/12/18 09:00 Dose: 230 mls/hr Documented by: [id number] Ondansetron HCl (Zofran) 4 mg IV NOW STA Stop: 10/11/18 20:39 Last Admin: 10/11/18 21:45 Dose: 4 mg Documented by: [id number] Ondansetron HCl (Zofran) 4 mg IV NOW STA Stop: 10/11/18 22:34 Last Admin: 10/11/18 22:44 Dose: 4 mg Documented by: [id number] Medical Decision Making Differential Diagnosis Differential Diagnosis includes: muscular strain, fracture, metastatic disease, disc herniation, sciatica, epidural abscess, vertebral osteomyelitis, discitis, spinal epidural hematoma, cord compression, cauda equina/conus medullaris syndrome, aortic disease, infection, shingles, renal colic, gastrointestinal, ac gagandeep exacerbation of chronic back pain, UTI as well as others were entertained. Medical Records Attestation: I reviewed the patient's medical records. Home Medications Current Medication List: was personally reviewed by me Laboratory Data Attestation: I reviewed the patient's lab results. Result diagrams: 10/13/18 06:56 10/13/18 06:56 Lab Results 10/11/18 10/11/18 10/11/18 Range/Units 21:10 21:15 21:15 WBC 7.47 (4.8-10.8) K/uL RBC 4.71 (4.2-5.4) M/uL Hgb 14.6 (12.0-16.0) g/dL Hct 44.0 (37-47) % MCV 93.4 (80-100) fL MCH 31.0 (25-34) pg MCHC 33.2 (32-36) g/dL RDW Std Deviation 51.7 H (36.4-46.3) fL RDW Coeff of Barney 15.0 H (11.5-14.5) % Plt Count 279 (130-400) K/uL MPV 10.5 H (7.4-10.4) fL Immature Gran % (Auto) 0.1 % Neut % (Auto) 51.5 % Lymph % (Auto) 31.9 % Custer % (Auto) 15.1 % Eos % (Auto) 0.7 % Baso % (Auto) 0.7 % Immature Gran # (Auto) 0.01 (0.00-0.02) K/uL Neut # (Auto) 3.85 (1.4-6.5) K/uL Lymph # (Auto) 2.38 (1.2-3.4) K/uL Custer # (Auto) 1.13 H (0.11-0.59) K/uL Eos # (Auto) 0.05 (0-0.5) K/uL Baso # (Auto) 0.05 (0-0.2) K/uL Sodium 140 (136-145) mmol/L Potassium 4.2 (3.5-5.1) mmol/L Chloride 106 (98-107) mmol/L Carbon Dioxide 30 (21-32) mmol/L Anion Gap 4.0 (3-11) BUN 11 (7-18) mg/dl Creatinine 0.84 (0.6-1.2) mg/dl Est Cr Clr Drug Dosing 31.4 ml/min Est GFR ( Amer) 74.5 Est GFR (Non-Af Amer) 64.3 BUN/Creatinine Ratio 12.9 (10-20) Glucose 121 H (70-99) mg/dl Calcium 9.6 (8.5-10.1) mg/dl Magnesium 2.2 (1.8-2.4) mg/dl Total Bilirubin 0.4 (0.2-1) mg/dl AST 21 (15-37) U/L ALT 16 (12-78) U/L Alkaline Phosphatase 121 H (45-117) U/L Total Protein 8.5 H (6.4-8.2) gm/dl Albumin 3.5 (3.4-5.0) gm/dl Globulin 5.0 H (2.5-4.0) gm/dl Albumin/Globulin Ratio 0.7 L (0.9-2) Lipase 69 L (73-393) U/L Urine Color Yellow Urine Appearance Cloudy H (Clear) Urine pH 6.5 (4.5-7.5) Ur Specific Binger 1.010 (1.000-1.030) Urine Protein Negative (Negative) Urine Glucose (UA) Negative (Negative) Urine Ketones Negative (Negative) Urine Blood 1+ H (Negative) Urine Nitrite Negative (Negative) Urine Bilirubin Negative (Negative) Urine Urobilinogen Negative (Negative) Ur Leukocyte Esterase 3+ H (Negative) Urine WBC (Auto) >30 H (0-5) /hpf Urine RBC (Auto) 0-4 (0-4) /hpf U Hyaline Cast (Auto) 1-5 (0-5) /lpf U Epithel Cells (Auto) 0-5 (0-5) /lpf Urine Bacteria (Auto) 3+ H (Negative) Influenza Type A (PCR) (Neg) Influenza Type B (PCR) (Neg) 10/12/18 10/12/18 10/13/18 Range/Units 08:32 08:32 06:56 WBC 8.50 7.37 (4.8-10.8) K/uL RBC 4.14 L 3.68 L (4.2-5.4) M/uL Hgb 12.4 11.1 L (12.0-16.0) g/dL Hct 38.8 34.2 L (37-47) % MCV 93.7 92.9 (80-100) fL MCH 30.0 30.2 (25-34) pg MCHC 32.0 32.5 (32-36) g/dL RDW Std Deviation 51.9 H 52.0 H (36.4-46.3) fL RDW Coeff of Barney 15.1 H 15.3 H (11.5-14.5) % Plt Count 279 228 (130-400) K/uL MPV 10.9 H 10.3 (7.4-10.4) fL Immature Gran % (Auto) 0.1 % Neut % (Auto) 51.3 % Lymph % (Auto) 27.9 % Custer % (Auto) 19.6 % Eos % (Auto) 0.6 % Baso % (Auto) 0.5 % Immature Gran # (Auto) 0.01 (0.00-0.02) K/uL Neut # (Auto) 4.36 (1.4-6.5) K/uL Lymph # (Auto) 2.37 (1.2-3.4) K/uL Custer # (Auto) 1.67 H (0.11-0.59) K/uL Eos # (Auto) 0.05 (0-0.5) K/uL Baso # (Auto) 0.04 (0-0.2) K/uL Sodium 141 (136-145) mmol/L Potassium 4.5 (3.5-5.1) mmol/L Chloride 109 H (98-107) mmol/L Carbon Dioxide 29 (21-32) mmol/L Anion Gap 3.0 (3-11) BUN 9 (7-18) mg/dl Creatinine 0.84 (0.6-1.2) mg/dl Est Cr Clr Drug Dosing 31.2 ml/min Est GFR ( Amer) 74.5 Est GFR (Non-Af Amer) 64.3 BUN/Creatinine Ratio 10.5 (10-20) Glucose 82 (70-99) mg/dl Calcium 8.4 L (8.5-10.1) mg/dl Magnesium (1.8-2.4) mg/dl Total Bilirubin (0.2-1) mg/dl AST (15-37) U/L ALT (12-78) U/L Alkaline Phosphatase (45-117) U/L Total Protein (6.4-8.2) gm/dl Albumin (3.4-5.0) gm/dl Globulin (2.5-4.0) gm/dl Albumin/Globulin Ratio (0.9-2) Lipase (73-393) U/L Urine Color Urine Appearance (Clear) Urine pH (4.5-7.5) Ur Specific Binger (1.000-1.030) Urine Protein (Negative) Urine Glucose (UA) (Negative) Urine Ketones (Negative) Urine Blood (Negative) Urine Nitrite (Negative) Urine Bilirubin (Negative) Urine Urobilinogen (Negative) Ur Leukocyte Esterase (Negative) Urine WBC (Auto) (0-5) /hpf Urine RBC (Auto) (0-4) /hpf U Hyaline Cast (Auto) (0-5) /lpf U Epithel Cells (Auto) (0-5) /lpf Urine Bacteria (Auto) (Negative) Influenza Type A (PCR) (Neg) Influenza Type B (PCR) (Neg) 10/13/18 10/13/18 Range/Units 06:56 13:40 WBC (4.8-10.8) K/uL RBC (4.2-5.4) M/uL Hgb (12.0-16.0) g/dL Hct (37-47) % MCV (80-100) fL MCH (25-34) pg MCHC (32-36) g/dL RDW Std Deviation (36.4-46.3) fL RDW Coeff of Barney (11.5-14.5) % Plt Count (130-400) K/uL MPV (7.4-10.4) fL Immature Gran % (Auto) % Neut % (Auto) % Lymph % (Auto) % Custer % (Auto) % Eos % (Auto) % Baso % (Auto) % Immature Gran # (Auto) (0.00-0.02) K/uL Neut # (Auto) (1.4-6.5) K/uL Lymph # (Auto) (1.2-3.4) K/uL Custer # (Auto) (0.11-0.59) K/uL Eos # (Auto) (0-0.5) K/uL Baso # (Auto) (0-0.2) K/uL Sodium 140 (136-145) mmol/L Potassium 4.0 (3.5-5.1) mmol/L Chloride 108 H (98-107) mmol/L Carbon Dioxide 27 (21-32) mmol/L Anion Gap 5.0 (3-11) BUN 9 (7-18) mg/dl Creatinine 0.81 (0.6-1.2) mg/dl Est Cr Clr Drug Dosing 32.4 ml/min Est GFR ( Amer) 77.8 Est GFR (Non-Af Amer) 67.2 BUN/Creatinine Ratio 10.9 (10-20) Glucose 109 H (70-99) mg/dl Calcium 8.1 L (8.5-10.1) mg/dl Magnesium (1.8-2.4) mg/dl Total Bilirubin (0.2-1) mg/dl AST (15-37) U/L ALT (12-78) U/L Alkaline Phosphatase (45-117) U/L Total Protein (6.4-8.2) gm/dl Albumin (3.4-5.0) gm/dl Globulin (2.5-4.0) gm/dl Albumin/Globulin Ratio (0.9-2) Lipase (73-393) U/L Urine Color Urine Appearance (Clear) Urine pH (4.5-7.5) Ur Specific Binger (1.000-1.030) Urine Protein (Negative) Urine Glucose (UA) (Negative) Urine Ketones (Negative) Urine Blood (Negative) Urine Nitrite (Negative) Urine Bilirubin (Negative) Urine Urobilinogen (Negative) Ur Leukocyte Esterase (Negative) Urine WBC (Auto) (0-5) /hpf Urine RBC (Auto) (0-4) /hpf U Hyaline Cast (Auto) (0-5) /lpf U Epithel Cells (Auto) (0-5) /lpf Urine Bacteria (Auto) (Negative) Influenza Type A (PCR) Pos for Influ A A* (Neg) Influenza Type B (PCR) Neg for Influ B (Neg) Imaging Data Radiologist's Impression: Radiology results as stated below per my review and the radiologist's interpretation: XR lumbar spine 2-3V CLINICAL HISTORY: 82 years-old Female presenting with lumbar pain. TECHNIQUE: Frontal, lateral, and coned in lateral views of the lumbar spine were obtained. COMPARISON: 03/08/[address] of the abdomen and pelvis from 03/09/2018. FINDINGS: Mild levoscoliosis centered at the upper lumbar spine. Suspected underlying osteopenia. An IVC filter projects at the level of L1-2. Cholecystectomy clips noted. Partially visualized pacer lead to the right ventricular apex. Atherosclerotic calcifications. Normal lumbar lordosis. Vertebral body height loss of L5 is new since 2017. Moderate compression fracture of T12 is new from prior radiographs though present on prior CT from 2018. Stable mild compression deformity of T11. Remaining vertebral bodies demonstrate normal height and alignment. Intervertebral disc heights grossly preserved. No osseous neural foraminal narrowing. IMPRESSION: 1. Moderate compression fracture of T12 new since 2018. Correlate for point tenderness as this may represent an acute fracture. Bony edema would be best demonstrated on MRI. 2. Mild compression deformity of L5 unchanged since 2018. 3. Stable mild compression fracture of T11 unchanged since 2018. Electronically signed by: Efren Trejo M.D. 10/11/2018 10:06 PM Blood Pressure Blood Pressure Findings: Elevated blood pressure Blood Pressure Disposition: further management by hospitalist MDM Narrative This patient was evaluated and appeared to be in no significant distress. IV access was obtained and laboratory work was drawn. The patient was placed on cardiac nurse specialist and found to be in a normal sinus rhythm. Patient was hydrated with normal saline solution. Patient was nauseated and did require IV Zofran. She did vomit during her stay in the ED. It appears that the patient has a multidrug-resistant E. coli UTI per her last culture at the end of September. The patient was placed on Cefdinir for a pneumonia within the last 2 weeks. Patient's urine has been sensitive to Zosyn, but resistant to amp sulbactam. Patient was given Zosyn 4.5 g IV and continued on symptomatic management. She was encouraged to stay in the hospital for further management until urine cul tures are resulted as the patient has multiple somatic allergies. She has agreed with this plan. Patient will be evaluated by the hospitalist service for further management. Impression & Plan T12 compression fracture, UTI (urinary tract infection), Infection with multi- drug resistant microorganisms, Vomiting Discharge Plan Visit Data *Final* Discharge Date/Time: 10/12/18 01:08 Chief Complaint: Back Injury/Pain Stated Complaint: back pain light headed and nausea ED Provider: Laine Campbell Discharge Problem: T12 compression fracture, UTI (urinary tract infection), Infection with multi- drug resistant microorganisms, Vomiting Patient Disposition: Admitted As Inpatient Discharge Instructions Interventions: ED Discharge Assessment Last Done: 10/12/18 01:08 Discharge Problem: UTI (urinary tract infection) Qualifiers: Urinary tract infection type: acute cystitis Hematuria presence: without hematuria Qualified Code(s): N30.00 - Acute cystitis without hematuria Vomiting Qualifiers: Vomiting type: unspecified Vomiting Intractability: non-intractable Nausea presence: with nausea Qualified Code(s): R11.2 - Nausea with vomiting, unspecified The scribe's documentation has been prepared under my direction and personally reviewed by me in its entirety. I confirm that the note above accurately reflects all work, treatment, procedures, and medical decision making performed by me.
[2018-10-11 21:30] LABS: Basophils # (auto) 0.05 K/uL (0-0.2); Basophils % (auto) 0.7 %; Eosinophils # (auto) 0.05 K/uL (0-0.5); Eosinophils % (auto) 0.7 %; Hemoglobin 14.6 g/dL (12.0-16.0); Immature Granulocytes # (auto) 0.01 K/uL (0.00-0.02); Immature Granulocytes % (auto) 0.1 %; Lymphocytes # (auto) 2.38 K/uL (1.2-3.4); Lymphocytes % (auto) 31.9 %; Mean Corpuscular Hgb Conc 33.2 g/dL (32-36); Mean Corpuscular Volume 93.4 fL (80-100); Mean Platelet Volume 10.5 fL (7.4-10.4); Monocytes # (auto) 1.13 K/uL (0.11-0.59); Monocytes % (auto) 15.1 %; Neutrophils # (auto) 3.85 K/uL (1.4-6.5); Neutrophils % (auto) 51.5 %; Platelet Count 279 K/uL (130-400); RDW Standard Deviation 51.7 fL (36.4-46.3); Red Blood Count 4.71 M/uL (4.2-5.4); White Blood Count 7.47 K/uL (4.8-10.8)
[2018-10-11 21:52] LABS: Albumin Level 3.5 gm/dl (3.4-5.0); BUN Creatinine Ratio 12.9 (10-20); Calcium 9.6 mg/dl (8.5-10.1); Creatinine Clr Calc Pharmacy 31.4 ml/min; Est GFR (African American) 74.5; Est GFR (Non-African American) 64.3; Potassium 4.2 mmol/L (3.5-5.1)
[2018-10-11 21:55] LABS: Albumin Globulin Ratio 0.7 (0.9-2); Bilirubin,Total 0.4 mg/dl (0.2-1); Total Protein 8.5 gm/dl (6.4-8.2)
--- NOTE | 2018-10-11 22:07 | XRay Report ---
XR lumbar spine 2-3V CLINICAL HISTORY: 82 years-old Female presenting with lumbar pain. TECHNIQUE: Frontal, lateral, and coned in lateral views of the lumbar spine were obtained. COMPARISON: 03/08/[address] of the abdomen and pelvis from 03/09/2018. FINDINGS: Mild levoscoliosis centered at the upper lumbar spine. Suspected underlying osteopenia. An IVC filter projects at the level of L1-2. Cholecystectomy clips noted. Partially visualized pacer lead to the r ight ventricular apex. Atherosclerotic calcifications. Normal lumbar lordosis. Vertebral body height loss of L5 is new since 2017. Moderate compression fracture of T12 is new from prior radiographs thou gh present on prior CT from 2018. Stable mild compression deformity of T11. Remaining vertebral matt s demonstrate normal height and alignment. Intervertebral disc heights grossly preserved. No osseous neural foraminal narrowing. IMPRESSION: 1. Moderate compression fracture of T12 new since 2018. Correlate for point tenderness as this may r epresent an acute fracture. Bony edema would be best demonstrated on MRI. 2. Mild compression deformity of L5 unchanged since 2018. 3. Stable mild compression fracture of T11 unchanged since 2018. Electronically signed by: Efren Trejo M.D. 10/11/2018 10:06 PM
[2018-10-11 22:15] LABS: Appearance Urine Cloudy (Clear); Bacteria Urine Automated 3+ (Negative); Bilirubin Urine Negative (Negative); Blood Urine 1+ (Negative); Color Urine Yellow; Epithelial Cell Urine Auto 0-5 /lpf (0-5); Glucose Urine UA Negative (Negative); Ketones Urine Negative (Negative); Leukocyte Esterase Urine 3+ (Negative); Nitrite Urine Negative (Negative); Protein Urine Negative (Negative); RBC Urine Automated 0-4 /hpf (0-4); Urobilinogen Urine Negative (Negative); WBC Urine Automated >30 /hpf (0-5); pH Urine 6.5 (4.5-7.5)
[2018-10-11] MEDS ORDERED: PIPERACILL/TAZOBAC CONSULT ACTIVE PRN (22:33)
[2018-10-11] MEDS ORDERED: PIPERACILLIN/TAZOBACTAM 4.5 GM/120 ML BAG IV ONE (22:33)
[2018-10-11 23:01] LABS: Magnesium 2.2 mg/dl (1.8-2.4)
--- NOTE | 2018-10-12 00:25 | History & Physical Report ---
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 SCDs RE history ICH DNR History of Present Illness Chief Complaint: Nausea, vomiting dysuria Primary Care Provider: Analia Yates History obtained from patient, family, and records. Medical history significant for chronic systolic heart failure secondary to ischemic cardiomyopathy (EF 45% TTE 2018 ), CAD status post stenting. 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 Recent confinement July 2015 for epigastric pain secondary to hiatal hernia. Patient has had 2 bouts of UTI since late July 2018 (cephalosporin sensitive E. coli on 2 urine cultures). Persistent dysuria despite completion of second course of antibiotics a few days ago. Patient complaining of achy back pain, nausea, emesis. Good bowel movement. No actual belly pain. No chest pain, no S OB. Outpatient UA obtained last 2 days ago. Outpatient Urology referral for recurrent UTIs scheduled for next month. Patient brought to the ER by family. IV Zosyn given for UTI. 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 Allergies Allergy/AdvReac Type Severity Reaction Status Date / Time cephalexin Allergy Mild Unknown Verified 08/08/18 20:30 codeine Allergy Unknown edema Verified 08/08/18 20:30 airway,rash & hives egg Allergy Unknown ALLERGY TO Verified 08/08/18 20:30 EGG WHITES ketorolac Allergy Unknown Unknown Verified 08/08/18 20:30 omeprazole Allergy Unknown unknown Verified 08/08/18 20:30 propoxyphene Allergy Unknown Unknown Verified 08/08/18 20:30 Sulfa (Sulfonamide Allergy Unknown Unknown Verified 08/08/18 20:30 Antibiotics) capsaicin AdvReac Severe HIGH BP Verified 08/08/18 20:30 diclofenac AdvReac Severe HIGH BP Verified 08/08/18 20:30 Diclopak AdvReac Severe HIGH BP Verified 03/09/18 20:00 isopropyl alcohol AdvReac Severe HIGH BP Verified 08/08/18 20:30 propylene glycol AdvReac Severe HIGH BP Verified 08/08/18 20:30 tizanidine AdvReac Intermediate DELIRIUM Verified 03/09/18 20:00 sucralfate AdvReac Unknown itching,n/v Verified 03/09/18 20:00 Home Medications Home Medications Medication Instructions Recorded Confirmed Type cyclosporine [Restasis] 1 drp OPB UD 08/08/18 10/11/18 History dronabinol [Marinol] 2.5 mg PO BID PRN 08/08/18 10/11/18 History fluticasone [Flonase Allergy 2 spray INTRANASAL DAILY PRN 08/08/18 10/11/18 History Relief] gabapentin [Neurontin] 300 mg PO TID 08/08/18 10/11/18 History metoprolol tartrate [Lopressor] 50 mg PO BID 08/08/18 10/11/18 History ondansetron HCl [Zofran] 4 mg PO TID PRN 08/08/18 10/11/18 History polyethylene glycol 3350 [Miralax] 17 g PO DAILY PRN 08/08/18 10/11/18 History aspirin 81 mg PO QAM 10/11/18 10/11/18 History Past Med/Surg History Medical History CAD (coronary artery disease) (Chronic) "left cx PCI 2003" Sinoatrial node dysfunction (Chronic) PAT (paroxysmal atrial tachycardia) (Chronic) 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" Pacemaker (Chronic) "with mass noted on lead in right ventricle" Chronic pain (Chronic) Surgical History S/P IVC filter (Chronic) History of repair of hiatal hernia (Chronic) H/O splenectomy (Chronic) History of tonsillectomy and adenoidectomy (Chronic) Social History Communication Ability: Effective Beliefs That Will Affect Care: None Current Living Situation: Family Current Living Situation Comment: 24 hour care Other Information That Helps Us Care for You: No Feels Safe at Home: Yes Smoking Status: Never smoker Hx Alcohol Use: Yes Hx Substance Use: No Review of Systems As per HPI, all 10 systems reviewed, all other ROS negative Physical Exam Vital Signs (Past 24 Hours): Last Vital Signs Temp 37.0 C 10/11/18 18:33 Pulse 88 10/11/18 23:08 Resp 18 10/11/18 23:08 BP 155/77 H 10/11/18 23:08 Pulse Ox 93 10/11/18 23:08 Physical Exam: GENERAL: Slightly uncomfortable, tremulous, no respiratory distress, underweight SKIN: Normal color, warm HEENT: [place] palpebral conjunctivae, no ptosis, dry buccal mucosa NECK : Supple, no tenderness CHEST : Decreased breath sounds, no tenderness HEART : RRR, systolic murmur BACK: Mid back tenderness ABDOMEN: Soft, nontender EXTREMITIES : No LE swelling/tenderness, no other conspicuous deformities noted NEUROLOGIC : Coherent, no facial asymmetry, chronic hemiparesis left, rest tremors worse on motion of the extremities Results & Data Laboratory Results Laboratory Results WBC 7.47 K/uL (4.8-10.8) 10/11/18 21:15 RBC 4.71 M/uL (4.2-5.4) 10/11/18 21:15 Hgb 14.6 g/dL (12.0-16.0) 10/11/18 21:15 Hct 44.0 % (37-47) 10/11/18 21:15 MCV 93.4 fL (80-100) 10/11/18 21:15 MCH 31.0 pg (25-34) 10/11/18 21:15 MCHC 33.2 g/dL (32-36) 10/11/18 21:15 RDW Std Deviation 51.7 fL (36.4-46.3) H 10/11/18 21:15 RDW Coeff of Barney 15.0 % (11.5-14.5) H 10/11/18 21:15 Plt Count 279 K/uL (130-400) 10/11/18 21:15 MPV 10.5 fL (7.4-10.4) H 10/11/18 21:15 Immature Gran % (Auto) 0.1 % 10/11/18 21:15 Neut % (Auto) 51.5 % 10/11/18 21:15 Lymph % (Auto) 31.9 % 10/11/18 21:15 Dane % (Auto) 15.1 % 10/11/18 21:15 Eos % (Auto) 0.7 % 10/11/18 21:15 Baso % (Auto) 0.7 % 10/11/18 21:15 Immature Gran # (Auto) 0.01 K/uL (0.00-0.02) 10/11/18 21:15 Neut # (Auto) 3.85 K/uL (1.4-6.5) 10/11/18 21:15 Lymph # (Auto) 2.38 K/uL (1.2-3.4) 10/11/18 21:15 Dane # (Auto) 1.13 K/uL (0.11-0.59) H 10/11/18 21:15 Eos # (Auto) 0.05 K/uL (0-0.5) 10/11/18 21:15 Baso # (Auto) 0.05 K/uL (0-0.2) 10/11/18 21:15 Sodium 140 mmol/L (136-145) 10/11/18 21:15 Potassium 4.2 mmol/L (3.5-5.1) 10/11/18 21:15 Chloride 106 mmol/L (98-107) 10/11/18 21:15 Carbon Dioxide 30 mmol/L (21-32) 10/11/18 21:15 Anion Gap 4.0 (3-11) 10/11/18 21:15 BUN 11 mg/dl (7-18) 10/11/18 21:15 Creatinine 0.84 mg/dl (0.6-1.2) 03/13/19 21:15 Est Cr Clr Drug Dosing 31.4 ml/min 10/11/18 21:15 Est GFR ( Amer) 74.5 10/11/18 21:15 Est GFR (Non-Af Amer) 64.3 10/11/18 21:15 BUN/Creatinine Ratio 12.9 (10-20) 10/11/18 21:15 Glucose 121 mg/dl (70-99) H 10/11/18 21:15 Calcium 9.6 mg/dl (8.5-10.1) 10/11/18 21:15 Magnesium 2.2 mg/dl (1.8-2.4) 10/11/18 21:15 Total Bilirubin 0.4 mg/dl (0.2-1) 10/11/18 21:15 AST 21 U/L (15-37) 10/11/18 21:15 ALT 16 U/L (12-78) 10/11/18 21:15 Alkaline Phosphatase 121 U/L (45-117) H 10/11/18 21:15 Total Protein 8.5 gm/dl (6.4-8.2) H 10/11/18 21:15 Albumin 3.5 gm/dl (3.4-5.0) 10/11/18 21:15 Globulin 5.0 gm/dl (2.5-4.0) H 10/11/18 21:15 Albumin/Globulin Ratio 0.7 (0.9-2) L 10/11/18 21:15 Lipase 69 U/L (73-393) L 10/11/18 21:15 Urine Color Yellow 10/11/18 21:10 Urine Appearance Cloudy (Clear) H 10/11/18 21:10 Urine pH 6.5 (4.5-7.5) 10/11/18 21:10 Ur Specific [place] 1.010 (1.000-1.030) 10/11/18 21:10 Urine Protein Negative (Negative) 10/11/18 21:10 Urine Glucose (UA) Negative (Negative) 10/11/18 21:10 Urine Ketones Negative (Negative) 10/11/18 21:10 Urine Blood 1+ (Negative) H 10/11/18 21:10 Urine Nitrite Negative (Negative) 10/11/18 21:10 Urine Bilirubin Negative (Negative) 10/11/18 21:10 Urine Urobilinogen Negative (Negative) 10/11/18 21:10 Ur Leukocyte Esterase 3+ (Negative) H 10/11/18 21:10 Urine WBC (Auto) >30 /hpf (0-5) H 10/11/18 21:10 Urine RBC (Auto) 0-4 /hpf (0-4) 10/11/18 21:10 U Hyaline Cast (Auto) 1-5 /lpf (0-5) 10/11/18 21:10 U Epithel Cells (Auto) 0-5 /lpf (0-5) 10/11/18 21:10 Urine Bacteria (Auto) 3+ (Negative) H 10/11/18 21:10 Diagnostic Findings Lumbar spine x-ray: 1. Moderate compression fracture of T12 new since 2018. Correlate for point tenderness as this may represent an acute fracture. Bony edema would be best demonstrated on MRI. 2. Mild compression deformity of L5 unchanged since 2018. 3. Stable mild compression fracture of T11 unchanged since 2018.
[2018-10-12] MEDS ORDERED: POLYETHYLENE (MIRALAX) 17 GM PACK PO PRN (01:57)
[2018-10-12] MEDS ORDERED: ACETAMINOPHEN 325 MG TAB PO PRN (01:57)
[2018-10-12] MEDS ORDERED: PROCHLORPERAZINE 5 MG in SYRINGE 4 ML IV PRN (01:57)
[2018-10-12] MEDS ORDERED: HYDROmorphone INJ 0.5 MG/0.5 ML SYR IV PRN (01:57)
[2018-10-12] MEDS ORDERED: TRAMADOL HCL 50 MG TABLET PO PRN (01:57)
[2018-10-12] MEDS ORDERED: FLUTICASONE PROPIONATE NA SPR 16 GM BTL PRN (01:57)
[2018-10-12] MEDS ORDERED: PHENAZOPYRIDINE HCL 100 MG TAB PO PRN (01:57)
[2018-10-12] MEDS ORDERED: SODIUM CHLORIDE 0.9% 1000ML 1,000 ML IV ONE (02:15)
--- NOTE | 2018-10-12 07:44 | CT Scan Report ---
ABDOMEN AND PELVIS CT WITHOUT CONTRAST CT DOSE: 488.28 mGy.cm HISTORY: Nausea. Vomiting. Back pain. TECHNIQUE: Multiaxial CT images of the abdomen and pelvis were performed without contrast. A dose lo wering technique was utilized adhering to the principles of ALARA. COMPARISON STUDY: Abdomen and pelvis CT 03/09/2018. FINDINGS: Mild interlobular septal thickening, cardiomegaly, and trace bilateral pleural effusions co nsistent with mild pulmonary edema. Chronic elevation the left hemidiaphragm. Moderate hiatus hernia, unchanged. Pacemaker wires are noted. Multiple accessory spleens/splenosis is seen within the left u pper quadrant. A normal spleen is not identified. The unenhanced pancreas and liver are unremarkable. The gallbladder is obscured by motion artifact but likely within normal limits. Mild bilateral adren al gland thickening is chronic. There is chronic atrophy of the right kidney. There are few punctate bilateral renal calculi. No ureteral stones. No hydronephrosis. Focal scarring within the upper pole the left kidney with a left renal cyst. This remains unchanged. No retroperitoneal lymphadenopathy. A n IVC filter is noted. Stable ectatic midabdominal aorta demonstrating a focal dissection. The aorta measures up to 2.4 centers in diameter. This is also unchanged. Small stone within the left posterior bladder adjacent to the ureterovesical junction. No left-sided hydronephrosis. The uterus is unremar kable. No bladder wall thickening. Punctate focus of gas within the bladder lumen. Multiple bilateral cystic lesions again noted within the ovaries. These remain unchanged. Dominant right ovarian cystic lesion measures 3 cm. Technically, these should be considered pathologic in a postmenopausal female. Moderate to large amount of well-formed stool within the rectum. The rectum is distended up to 6.3 c m in diameter. Suboptimal evaluation for bowel pathology due to the lack of intravenous and oral cont rast. However, no definite bowel wall thickening or obstruction. Multiple colonic diverticula. No samantha dence for diverticulitis. Specifically, no pericolonic inflammatory change to suggest an acute inflam matory process within the bowel. The appendix is stool filled and mildly distended measuring up to 7 mm. However, this remains unchanged. No evidence for acute appendicitis. Small fat-containing right p osterior lateral flank hernia, unchanged. Chronic and compression deformities at T11 and L5 remain un changed. Moderate superior endplate compression deformity at T12 is new from the prior study. This de monstrates 3 mm of retropulsion and mild central canal narrowing at this level. However, this appears to be chronic. IMPRESSION: 1. Moderate superior endplate compression deformity at T12 which is new from the prior study but appe ars to be chronic. There is 3 mm of retropulsion resulting in mild central canal narrowing at this le ro. 2. The T11 and L5 compression deformities remain unchanged. 3. Mild pulmonary edema and trace bilateral pleural effusions. 4. No definite bowel wall thickening or obstruction. 5. Bilateral ovarian cystic lesions, unchanged. Technically, these are considered pathologic in a pos tmenopausal female. 6. Punctate focus of gas within the bladder. This may be due to prior catheterization. Correlation wi urinalysis recommended. 7. Additional chronic findings as described above. Electronically signed by: Darwin Arellano M.D. 10/12/2018 7:43 AM
[2018-10-12] MEDS: METOPROLOL TARTRATE 50 MG TAB PO SCH ×2 (07:45→21:01)
[2018-10-12] MEDS: ASPIRIN 81 MG ECTAB PO SCH (07:45)
[2018-10-12] MEDS: GABAPENTIN 300 MG CAP PO SCH ×3 (07:45→21:01)
[2018-10-12] MEDS ORDERED: PIPERACILLIN/TAZOBACTAM 3.375 GM in DEXTROSE 5% 100 ML IV ONE (09:00)
[2018-10-12 09:09] LABS: Basophils # (auto) 0.04 K/uL (0-0.2); Basophils % (auto) 0.5 %; Eosinophils # (auto) 0.05 K/uL (0-0.5); Eosinophils % (auto) 0.6 %; Hematocrit (blood only) 38.8 % (37-47); Hemoglobin 12.4 g/dL (12.0-16.0); Immature Granulocytes # (auto) 0.01 K/uL (0.00-0.02); Immature Granulocytes % (auto) 0.1 %; Lymphocytes # (auto) 2.37 K/uL (1.2-3.4); Lymphocytes % (auto) 27.9 %; Mean Corpuscular Volume 93.7 fL (80-100); Mean Platelet Volume 10.9 fL (7.4-10.4); Monocytes # (auto) 1.67 K/uL (0.11-0.59); Monocytes % (auto) 19.6 %; Neutrophils # (auto) 4.36 K/uL (1.4-6.5); Neutrophils % (auto) 51.3 %; Platelet Count 279 K/uL (130-400); RDW Coefficient of Variation 15.1 % (11.5-14.5); RDW Standard Deviation 51.9 fL (36.4-46.3); Red Blood Count 4.14 M/uL (4.2-5.4)
[2018-10-12 09:46] LABS: BUN Creatinine Ratio 10.5 (10-20); Calcium 8.4 mg/dl (8.5-10.1); Creatinine Clr Calc Pharmacy 31.2 ml/min; Est GFR (African American) 74.5; Est GFR (Non-African American) 64.3; Potassium 4.5 mmol/L (3.5-5.1)
[2018-10-12] MEDS: PIPERACILLIN/TAZOBACTAM 3.375 GM in DEXTROSE 5% 100 ML IV SCH ×2 (14:55→21:01)
--- NOTE | 2018-10-12 19:32 | Hospitalist Progress Note ---
Date of Service October 12, 2018 Assessment & Plan (1) Complicated UTI (urinary tract infection): H/O chronic cystitis Reports having recurrent dysuria No signs of sepsis --CT ABD: No definite bowel wall thickening or obstruction. Bilateral ovarian cystic lesions, unchanged. Technically, these are considered pathologic in a postmenopausal female. Punctate focus of gas within the bladder. This may be due to prior catheterization. --Urine Culture:Gram Negative Bacilli Continue Zosyn Chronic Back Pain: --CT: Moderate superior endplate compression deformity at T12 which is new from the prior study but appears to be chronic. There is 3 mm of retropulsion resulting in mild central canal narrowing at this level. The T11 and L5 compression deformities remain unchanged. --Patient is not interested in any surgical intervention if needed --Consulted Orthopedics for possible Brace --Pain control Chronic systolic heart failure H/O Ischemic cardiomyopathy (EF 45% TTE 2018 ) No signs of decompensation Continue home meds H/O CAD S/P stents H/O S-A node dysfunction S/P PPM Continue Aspirin, Metoprolol HTN: H/O CVA: H/O Intracranial hemorrhage H/O recurrent DVT off anticoagulation secondary to ICH S/P IVC filter placement Continue Aspirin DVT Px: SCDs Re: H/O ICH Code Status DNR Subjective Patient is seen and examined at bedside Dysuria is improving Reports chronic back pain Denies chest pain, SOB, dizziness, abd pain Family at bedside Physical Exam Vital Signs (Past 24 Hours): Last Vital Signs Temp 36.6 C 10/12/18 15:00 Pulse 72 10/12/18 15:00 Resp 16 10/12/18 15:00 BP 115/65 10/12/18 15:00 Pulse Ox 96 10/12/18 15:00 Physical Exam: Physical Exam: Vitals signs as noted above General Appearance:Thin, frail, no apparent distress Head: normocephalic, Atraumatic Eyes: normal inspection, EOMI Neck: supple, Trachea midline Respiratory/Chest: Decreased breath sounds on left, CTA Cardiovascular: S1, S2, No murmur Abdomen/GI:Soft, Non tender, Bowel sounds present Extremities/Musculoskelatal:normal inspection, no edema Neurologic/Psych:AAOX3, grossly no focal neurological deficits Skin: normal color, warm Results & Data Laboratory Results Short CBC 10/11/18 10/12/18 Range/Units 21:15 08:32 WBC 7.47 8.50 (4.8-10.8) K/uL Hgb 14.6 12.4 (12.0-16.0) g/dL Hct 44.0 38.8 (37-47) % Plt Count 279 279 (130-400) K/uL BMP 10/11/18 10/12/18 21:15 08:32 Sodium 140 141 Potassium 4.2 4.5 Chloride 106 109 H Carbon Dioxide 30 29 BUN 11 9 Creatinine 0.84 0.84 Glucose 121 H 82 Calcium 9.6 8.4 L Liver Function 10/11/18 Range/Units 21:15 Total Bilirubin 0.4 (0.2-1) mg/dl AST 21 (15-37) U/L ALT 16 (12-78) U/L Alkaline Phosphatase 121 H (45-117) U/L Albumin 3.5 (3.4-5.0) gm/dl Urine 10/11/18 Range/Units 21:10 Urine Color Yellow Urine Appearance Cloudy H (Clear) Urine pH 6.5 (4.5-7.5) Ur Specific [place] 1.010 (1.000-1.030) Urine Protein Negative (Negative) Urine Glucose (UA) Negative (Negative)
[2018-10-13] MEDS: PIPERACILLIN/TAZOBACTAM 3.375 GM in DEXTROSE 5% 100 ML IV SCH (04:30)
[2018-10-13 07:16] LABS: Hematocrit (blood only) 34.2 % (37-47); Hemoglobin 11.1 g/dL (12.0-16.0); Mean Corpuscular Hgb Conc 32.5 g/dL (32-36); Mean Corpuscular Volume 92.9 fL (80-100); Mean Platelet Volume 10.3 fL (7.4-10.4); Platelet Count 228 K/uL (130-400); RDW Coefficient of Variation 15.3 % (11.5-14.5); Red Blood Count 3.68 M/uL (4.2-5.4); White Blood Count 7.37 K/uL (4.8-10.8)
[2018-10-13 07:52] VITALS: BP 143/63; PULSE 67; TEMP 98.1; O2SAT 93
[2018-10-13 07:54] LABS: BUN Creatinine Ratio 10.9 (10-20); Calcium 8.1 mg/dl (8.5-10.1); Creatinine Clr Calc Pharmacy 32.4 ml/min; Est GFR (African American) 77.8; Est GFR (Non-African American) 67.2
[2018-10-13] MEDS: ASPIRIN 81 MG ECTAB PO SCH (08:14)
[2018-10-13] MEDS: METOPROLOL TARTRATE 50 MG TAB PO SCH (08:14)
[2018-10-13] MEDS: GABAPENTIN 300 MG CAP PO SCH ×2 (08:14→13:45)
[2018-10-13] MEDS ORDERED: cefTRIAXone SODIUM 1,000 MG in DEXTROSE 5% 50 ML IV SCH (12:00)
--- NOTE | 2018-10-13 13:04 | Hospitalist Progress Note ---
Date of Service October 13, 2018 Assessment & Plan (1) Complicated UTI (urinary tract infection): H/O chronic cystitis Reports having recurrent dysuria No signs of sepsis --CT ABD: No definite bowel wall thickening or obstruction. Bilateral ovarian cystic lesions, unchanged. Technically, these are considered pathologic in a postmenopausal female. Punctate focus of gas within the bladder. This may be due to prior catheterization. --Urine Culture:E.Coli Continue Zosyn>>Rocephin Plan to transition to PO antibiotics upon discharge Chronic Back Pain: --CT: Moderate superior endplate compression deformity at T12 which is new from the prior study but appears to be chronic. There is 3 mm of retropulsion resulting in mild central canal narrowing at this level. The T11 and L5 compression deformities remain unchanged. --Patient is not interested in any surgical intervention if needed --Pain control --Back pain improved --Advised to follow up with Orthopedics as outpatient Chronic systolic heart failure H/O Ischemic cardiomyopathy (EF 45% TTE 2018 ) No signs of decompensation Continue home meds H/O CAD S/P stents H/O S-A node dysfunction S/P PPM Continue Aspirin, Metoprolol HTN: H/O CVA: H/O Intracranial hemorrhage H/O recurrent DVT off anticoagulation secondary to ICH S/P IVC filter placement Continue Aspirin DVT Px: SCDs Re: H/O ICH Code Status DNR Subjective Patient is seen and examined at bedside Doing much better today Dysuria resolved back pain improved Denies chest pain, SOB, dizziness, abd pain Physical Exam Vital Signs (Past 24 Hours): Last Vital Signs Temp 36.7 C 10/13/18 10:46 Pulse 67 10/13/18 10:46 Resp 16 10/13/18 10:46 BP 143/63 H 10/13/18 10:46 Pulse Ox 93 10/13/18 10:46 Physical Exam: Physical Exam: Vitals signs as noted above General Appearance:Thin, frail, no apparent distress Head: normocephalic, Atraumatic Eyes: normal inspection, EOMI Neck: supple, Trachea midline Respiratory/Chest: Decreased breath sounds on left, CTA Cardiovascular: S1, S2, No murmur Abdomen/GI:Soft, Non tender, Bowel sounds present Extremities/Musculoskelatal:normal inspection, no edema Neurologic/Psych:AAOX3, grossly no focal neurological deficits Skin: normal color, warm Results & Data Laboratory Results Short CBC 10/13/18 Range/Units 06:56 WBC 7.37 (4.8-10.8) K/uL Hgb 11.1 L (12.0-16.0) g/dL Hct 34.2 L (37-47) % Plt Count 228 (130-400) K/uL BMP 10/13/18 06:56 Sodium 140 Potassium 4.0 Chloride 108 H Carbon Dioxide 27 BUN 9 Creatinine 0.81 Glucose 109 H Calcium 8.1 L
--- NOTE | 2018-10-13 13:13 | Discharge Summary ---
Date of Service October 13, 2018 Admission HPI Per Admitting Provider History obtained from patient, family, and records. Medical history significant for chronic systolic heart failure secondary to ischemic cardiomyopathy (EF 45% TTE 2018 ), CAD status post stenting. 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 Recent confinement July 2015 for epigastric pain secondary to hiatal hernia. Patient has had 2 bouts of UTI since late July 2018 (cephalosporin sensitive E. coli on 2 urine cultures). Persistent dysuria despite completion of second course of antibiotics a few days ago. Patient complaining of achy back pain, nausea, emesis. Good bowel movement. No actual belly pain. No chest pain, no S OB. Outpatient UA obtained last 2 days ago. Outpatient Urology referral for recurrent UTIs scheduled for next month. Patient brought to the ER by family. IV Zosyn given for UTI. 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 Admission Exam Per Admitting Provider GENERAL: Slightly uncomfortable, tremulous, no respiratory distress, underweight SKIN: Normal color, warm HEENT: Disney palpebral conjunctivae, no ptosis, dry buccal mucosa NECK : Supple, no tenderness CHEST : Decreased breath sounds, no tenderness HEART : RRR, systolic murmur BACK: Mid back tenderness ABDOMEN: Soft, nontender EXTREMITIES : No LE swelling/tenderness, no other conspicuous deformities noted NEUROLOGIC : Coherent, no facial asymmetry, chronic hemiparesis left, rest tremors worse on motion of the extremities Principal Diagnosis Discharge Information Discharge Diagnosis Complicated UTI Influenza A Chronic Back pain Bilateral Ovarian cystic lesions Discharge Goals Decrease discomfort,Improve disease control, Improve function Discharge Activity Limitations Resume your previous activity Discharge Data Allergies Allergy/AdvReac Type Severity Reaction Status Date / Time cephalexin Allergy Intermediate Hives Verified 10/13/18 09:12 codeine Allergy Unknown edema Verified 08/08/18 20:30 airway,rash & hives egg Allergy Unknown ALLERGY TO Verified 08/08/18 20:30 EGG WHITES ketorolac Allergy Unknown Unknown Verified 08/08/18 20:30 omeprazole Allergy Unknown unknown Verified 08/08/18 20:30 propoxyphene Allergy Unknown Unknown Verified 08/08/18 20:30 Sulfa (Sulfonamide Allergy Unknown Unknown Verified 08/08/18 20:30 Antibiotics) capsaicin AdvReac Severe HIGH BP Verified 08/08/18 20:30 diclofenac AdvReac Severe HIGH BP Verified 08/08/18 20:30 Diclopak AdvReac Severe HIGH BP Verified 03/09/18 20:00 isopropyl alcohol AdvReac Severe HIGH BP Verified 08/08/18 20:30 propylene glycol AdvReac Severe HIGH BP Verified 08/08/18 20:30 tizanidine AdvReac Intermediate DELIRIUM Verified 03/09/18 20:00 sucralfate AdvReac Unknown itching,n/v Verified 03/09/18 20:00 Consultations 10/11/18 22:34 ED Decision to Admit Stat Procedures Performed CT ABD: 1. Moderate superior endplate compression deformity at T12 which is new from the prior study but appears to be chronic. There is 3 mm of retropulsion resulting in mild central canal narrowing at this level. 2. The T11 and L5 compression deformities remain unchanged. 3. Mild pulmonary edema and trace bilateral pleural effusions. 4. No definite bowel wall thickening or obstruction. 5. Bilateral ovarian cystic lesions, unchanged. Technically, these are considered pathologic in a postmenopausal female. 6. Punctate focus of gas within the bladder. This may be due to prior catheterization. Correlation with urinalysis recommended. 7. Additional chronic findings as described above. L Spine X ray 1. Moderate compression fracture of T12 new since 2018. Correlate for point tenderness as this may represent an acute fracture. Bony edema would be best demonstrated on MRI. 2. Mild compression deformity of L5 unchanged since 2018. 3. Stable mild compression fracture of T11 unchanged since 2018. Ordered Studies 10/12/18 00:25 CT abd pelvis wo con Urgent Hospital Course (1) Complicated UTI (urinary tract infection): H/O chronic cystitis Reports having recurrent dysuria No signs of sepsis --CT ABD: No definite bowel wall thickening or obstruction. Bilateral ovarian cystic lesions, unchanged. Technically, these are considered pathologic in a postmenopausal female. Punctate focus of gas within the bladder. This may be due to prior catheterization. --Urine Culture:E.Coli Continue Zosyn>>Rocephin Plan to transition to PO antibiotics upon discharge Influenza A: Likely present prior to admission Family member with Flu Started on Tamiflu Chronic Back Pain: chronic Compression fracture T12 vertebra --CT: Moderate superior endplate compression deformity at T12 which is new from the prior study but appears to be chronic. There is 3 mm of retropulsion resulting in mild central canal narrowing at this level. The T11 and L5 compression deformities remain unchanged. --Patient is not interested in any surgical intervention if needed --Pain control --Back pain improved --Advised to follow up with Orthopedics as outpatient Chronic systolic heart failure H/O Ischemic cardiomyopathy (EF 45% TTE 2018 ) No signs of decompensation Continue home meds H/O CAD S/P stents H/O S-A node dysfunction S/P PPM Continue Aspirin, Metoprolol HTN: H/O CVA: H/O Intracranial hemorrhage H/O recurrent DVT off anticoagulation secondary to ICH S/P IVC filter placement Continue Aspirin B/L Ovarian Cysts: Incidental findings on CT scan Follow up with PCP as out patient Protein Calorie Malnutrition: BMI:18 Continue Marrinol DVT Px: SCDs Re: H/O ICH Code Status DNR Total Time Total Time Spent Total Time Spent (In Minutes): 42 minutes Total Time Includes: Examination of the Patient, Discharge Planning, Medication Reconciliation, Communication With Other Providers and Other Discharge Plan Discharge Items Patient Disposition: Home - Self-Care Reason For Visit: COMPLICATED UTI Discharge Diagnosis: Complicated UTI Influenza A Chronic Back pain Bilateral Ovarian cystic lesions Discharge Goals: Decrease discomfort, Improve disease control and Improve function Activity: Resume your previous activity Exercise/Sports: Gradually increase as tolerated Non-emergency contact: Primary Care Provider and Surgeon Call non-emergency contact if: you have any medication questions, your symptoms worsen, your pain is not controlled, your pain is unusual for you, your pain is concerning for you and you have a fever Follow-up/Referrals: Analia Yates DO [Primary Care Provider] - Diet: Heart Healthy Addtl Provider Instructions: Follow up with your PCP on 10/19/18 at 11:00AM Follow up with your Orthopedic Surgeon as advised Complete the antibiotic course as prescribed (Start taking from 10/14/18) Follow up with your Physician regarding ovarian cysts which were incidentally noted on CT scan for further work up Seek immediate medical attention if your symptoms reoccur or worsen Prescriptions: New cefdinir 300 mg capsule 300 mg PO BID 5 Days Qty: 10 RF: 0 oseltamivir [Tamiflu] 30 mg capsule 30 mg PO BID Qty: 9 RF: 0 Continued polyethylene glycol 3350 [Miralax] 17 gram Powder In Packet 17 g PO DAILY PRN (Reason: Constipation) RF: 0 ondansetron HCl [Zofran] 4 mg tablet 4 mg PO TID PRN (Reason: Nausea) RF: 0 dronabinol [Marinol] 2.5 mg capsule 2.5 mg PO BID PRN (Reason: Pain) RF: 0 metoprolol tartrate [Lopressor] 50 mg tablet 50 mg PO BID RF: 0 gabapentin [Neurontin] 100 mg capsule 300 mg PO TID RF: 0 fluticasone [Flonase Allergy Relief] 50 mcg/actuation [place],Suspension 2 spray INTRANASAL DAILY PRN (Reason: Allergy Symptoms) RF: 0 Restasis 0.05 % dropperette 1 drp OPB UD RF: 0 aspirin 81 mg Tablet,Delayed Release (Dr/Ec) 81 mg PO QAM RF: 0 Stand-Alone Forms: [facility] Discharge Orders: Discharge Order (Routine); Ordered 10/13/18 Ordered By: Rich Pierre Admission Data Admit Date/Time: 10/12/18 00:28 Attending Provider: Rich Pierre Admit Provider: Killian Leonardo Primary Care Provider: Analia Yates Other Providers: Killian Leonardo Service: Medical Other Interventions: Discharge Summary Assessment (RN) Last Done: 10/13/18 10:46 Pending Studies at Discharge: No DC Date/Time DO NOT enter until pt leaves facility: 10/13/18 16:30
[2018-10-13 14:15] LABS: Influenza B virus by PCR Neg for Influ B (Neg)
[2018-10-13] MEDS ORDERED: OSELTAMIVIR PHOSPHATE SUSP 30 MG/5 ML UDP PO SCH (14:30)
== END 2018-10-13 16:30 | disposition home or self-care (01) | DRG 690 ==
LOC: ED 18:30 → SUATTDRO 10-12 00:28 → 4W 10-12 00:28

== ENCOUNTER 2018-10-18 12:53 | Inpatient (IN) ==
[2018-10-18] MEDS ORDERED: dilTIAZem HCl 5 MG/ML 5 ML VIAL IV STA (13:35)
[2018-10-18] MEDS: dilTIAZem HCl 125 MG in DEXTROSE 5% 100 ML IV SCH ×2 (14:20→15:50)
--- NOTE | 2018-10-18 15:18 | XRay Report ---
XR chest 1V portable HISTORY: Dyspnea COMPARISON: None. FINDINGS: The lungs are clear. Cardiac silhouette is normal in size. No pleural effusions. No pneumot horax. IMPRESSION: No acute process. Electronically signed by: Darwin Arellano M.D. 10/18/2018 3:16 PM
[2018-10-18 15:38] LABS: Basophils # (auto) 0.03 K/uL (0-0.2); Basophils % (auto) 0.3 %; Eosinophils # (auto) 0.01 K/uL (0-0.5); Eosinophils % (auto) 0.1 %; Hemoglobin 13.6 g/dL (12.0-16.0); Immature Granulocytes # (auto) 0.04 K/uL (0.00-0.02); Immature Granulocytes % (auto) 0.4 %; Lymphocytes # (auto) 1.66 K/uL (1.2-3.4); Lymphocytes % (auto) 15.8 %; Mean Corpuscular Hgb Conc 33.2 g/dL (32-36); Mean Corpuscular Volume 91.7 fL (80-100); Mean Platelet Volume 11.5 fL (7.4-10.4); Monocytes # (auto) 1.29 K/uL (0.11-0.59); Monocytes % (auto) 12.3 %; Neutrophils # (auto) 7.46 K/uL (1.4-6.5); Neutrophils % (auto) 71.1 %; Platelet Count 279 K/uL (130-400); RDW Coefficient of Variation 14.6 % (11.5-14.5); RDW Standard Deviation 49.4 fL (36.4-46.3); Red Blood Count 4.47 M/uL (4.2-5.4); White Blood Count 10.49 K/uL (4.8-10.8)
[2018-10-18 15:41] LABS: Albumin Level 2.6 gm/dl (3.4-5.0); BUN Creatinine Ratio 15.3 (10-20); Calcium 8.7 mg/dl (8.5-10.1); Creatinine Clr Calc Pharmacy 29.7 ml/min; Est GFR (African American) 72.4; Est GFR (Non-African American) 62.5; Magnesium 2.2 mg/dl (1.8-2.4); Potassium 3.6 mmol/L (3.5-5.1)
[2018-10-18 15:44] LABS: INR 1.1 (0.9-1.1); Partial Thromboplastin Ratio 0.9; Partial Thromboplastin Time 23.8 Seconds (21.0-31.0); Prothrombin Time 11.1 Seconds (9.0-12.0)
[2018-10-18 15:46] LABS: Albumin Globulin Ratio 0.5 (0.9-2); Bilirubin,Total 0.9 mg/dl (0.2-1); Globulin 4.9 gm/dl (2.5-4.0); Total Protein 7.5 gm/dl (6.4-8.2); Troponin I 0.025 ng/ml (0-0.045)
--- NOTE | 2018-10-18 17:14 | Emergency Department Note ---
Entered by Sage Clark acting as a scribe for Edgardo Schwartz M.D. History of Present Illness General Chief complaint: Flu Like Symptoms Stated complaint: FLU/POSSIBLE PNEUMONIA/DEYHYDRATION Source: patient and family History of Present Illness Onset (ago): day(s) (past few) Location: head (global), upper extremity (global) and lower extremity (global) Pain Consistency: + other (persistent) Quality: + other (generalized weakness) Associated symptoms: + cough and + other (recently diagnosed with influenza; diffuse body aches; nausea without vomiting) The patient is an 82 year old female diagnosed last week with influenza who presents to the Emergency Room with complaints of persistent generalized weakness worsening in the past few days. The patient reports diffuse body aches. She reports a cough but states that her breathing is otherwise fine. She notes some chest pain that she attributes to her cough. She states that she has been nauseous but denies vomiting. She reports abdominal pain only if you push on it. She states that she is currently taking metoprolol, Tamiflu, and antibiotics. She reports a history of an intracranial bleed and takes baby aspirin but no other blood thinners. She notes that her nausea is exacerbated by attempting to eat, and she was only able to eat a couple bites of food today. She reports that she was evaluated by her PCP prior to arrival and sent to the ER. She notes that she follows Dr. [facility]. Home Medications Home Medications Medication Instructions Recorded Confirmed Type Restasis 2 drp OPB DAILY 08/08/18 10/18/18 History dronabinol [Marinol] 2.5 mg PO BID PRN 08/08/18 10/18/18 History fluticasone propionate [Flonase 2 spray INTRANASAL DAILY PRN 08/08/18 10/18/18 History Allergy Relief] gabapentin [Neurontin] 100 mg PO TID 08/08/18 10/18/18 History metoprolol tartrate [Lopressor] 50 mg PO BID 08/08/18 10/18/18 History ondansetron HCl [Zofran] 4 mg PO TID PRN 08/08/18 10/18/18 History polyethylene glycol 3350 [Miralax] 17 g PO DAILY PRN 08/08/18 10/18/18 History aspirin 81 mg PO QAM 10/11/18 10/18/18 History oseltamivir [Tamiflu] 30 mg PO BID #9 cap 10/13/18 10/18/18 Rx cefdinir 300 mg PO BID 10/18/18 10/18/18 History Allergies Allergy/AdvReac Type Severity Reaction Status Date / Time cephalexin Allergy Intermediate Hives Verified 10/13/18 09:12 codeine Allergy Unknown edema Verified 08/08/18 20:30 airway,rash & hives egg Allergy Unknown ALLERGY TO Verified 08/08/18 20:30 EGG WHITES ketorolac Allergy Unknown Unknown Verified 08/08/18 20:30 omeprazole Allergy Unknown unknown Verified 08/08/18 20:30 propoxyphene Allergy Unknown Unknown Verified 08/08/18 20:30 Sulfa (Sulfonamide Allergy Unknown Unknown Verified 08/08/18 20:30 Antibiotics) capsaicin AdvReac Severe HIGH BP Verified 08/08/18 20:30 diclofenac AdvReac Severe HIGH BP Verified 08/08/18 20:30 Diclopak AdvReac Severe HIGH BP Verified 03/09/18 20:00 isopropyl alcohol AdvReac Severe HIGH BP Verified 08/08/18 20:30 propylene glycol AdvReac Severe HIGH BP Verified 08/08/18 20:30 tizanidine AdvReac Intermediate DELIRIUM Verified 03/09/18 20:00 sucralfate AdvReac Unknown itching,n/v Verified 03/09/18 20:00 Past Med/Surg History Medical History CAD (coronary artery disease) (Chronic) "left cx PCI 2003" Sinoatrial node dysfunction (Chronic) PAT (paroxysmal atrial tachycardia) (Chronic) 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 and A total of 10 systems reviewed and were otherwise negative Physical Exam Vital Signs Vital Signs - 24 hr 10/18/18 13:03 10/18/18 13:28 10/18/18 13:30 Temperature 36.5 C Temperature Source Oral Sepsis Recent Fever Within 48 Hours No Sepsis Action Taken by Nursing No Action Required Pulse Rate 140 H 145 H 137 H Pulse Rate [Apical] Pulse Rate from SpO2 Sensor Pulse Rhythm Irregular Pulse Rhythm [Apical] Pulse Strength Normal Pulse Strength [Apical] Respiratory Rate 20 18 23 Respiratory Effort / Characteristics Non-Labored Spontaneous Respiratory Depth Normal Respiratory Pattern Regular Blood Pressure 131/86 Blood Pressure [Right Arm] Blood Pressure Mean 101 Blood Pressure Mean [Right Arm] Blood Pressure Position [Right Arm] Pulse Oximetry 94 94 Oxygen Delivery Method Room Air Room Air 10/18/18 13:38 10/18/18 13:45 10/18/18 14:00 Temperature Temperature Source Sepsis Recent Fever Within 48 Hours Sepsis Action Taken by Nursing Pulse Rate 134 H 132 H 137 H Pulse Rate [Apical] Pulse Rate from SpO2 Sensor 141 H 141 H Pulse Rhythm Pulse Rhythm [Apical] Pulse Strength Pulse Strength [Apical] Respiratory Rate 36 H 34 H 26 H Respiratory Effort / Characteristics Respiratory Depth Respiratory Pattern Blood Pressure 141/86 H 162/92 H Blood Pressure [Right Arm] Blood Pressure Mean 104 115 Blood Pressure Mean [Right Arm] Blood Pressure Position [Right Arm] Pulse Oximetry 96 96 Oxygen Delivery Method 10/18/18 14:01 10/18/18 14:15 10/18/18 14:21 Temperature Temperature Source Sepsis Recent Fever Within 48 Hours Sepsis Action Taken by Nursing Pulse Rate 153 H 131 H 118 H Pulse Rate [Apical] Pulse Rate from SpO2 Sensor 143 H 141 H 143 H Pulse Rhythm Pulse Rhythm [Apical] Pulse Strength Pulse Strength [Apical] Respiratory Rate 30 H 32 H 27 H Respiratory Effort / Characteristics Respiratory Depth Respiratory Pattern Blood Pressure 151/91 H Blood Pressure [Right Arm] Blood Pressure Mean 111 Blood Pressure Mean [Right Arm] Blood Pressure Position [Right Arm] Pulse Oximetry 97 96 95 Oxygen Delivery Method 10/18/18 14:23 10/18/18 14:25 10/18/18 14:30 Temperature Temperature Source Sepsis Recent Fever Within 48 Hours Sepsis Action Taken by Nursing Pulse Rate 118 H 96 H 79 Pulse Rate [Apical] Pulse Rate from SpO2 Sensor 141 H 89 Pulse Rhythm Pulse Rhythm [Apical] Pulse Strength Pulse Strength [Apical] Respiratory Rate 24 32 H 24 Respiratory Effort / Characteristics Respiratory Depth Respiratory Pattern Blood Pressure 117/85 132/69 Blood Pressure [Right Arm] Blood Pressure Mean 95 90 Blood Pressure Mean [Right Arm] Blood Pressure Position [Right Arm] Pulse Oximetry 95 94 Oxygen Delivery Method 10/18/18 14:31 10/18/18 14:34 10/18/18 14:35 Temperature Temperature Source Sepsis Recent Fever Within 48 Hours Sepsis Action Taken by Nursing Pulse Rate 82 82 90 Pulse Rate [Apical] Pulse Rate from SpO2 Sensor 89 86 93 H Pulse Rhythm Pulse Rhythm [Apical] Pulse Strength Pulse Strength [Apical] Respiratory Rate 20 21 21 Respiratory Effort / Characteristics Respiratory Depth Respiratory Pattern Blood Pressure 126/72 131/68 Blood Pressure [Right Arm] Blood Pressure Mean 90 89 Blood Pressure Mean [Right Arm] Blood Pressure Position [Right Arm] Pulse Oximetry 95 94 95 Oxygen Delivery Method 10/18/18 14:37 10/18/18 15:00 10/18/18 15:01 Temperature Temperature Source Sepsis Recent Fever Within 48 Hours Sepsis Action Taken by Nursing Pulse Rate 98 H 104 H Pulse Rate [Apical] 92 H Pulse Rate from SpO2 Sensor 101 H 106 H Pulse Rhythm Pulse Rhythm [Apical] Irregular Pulse Strength Pulse Strength [Apical] Normal Respiratory Rate 21 26 H 21 Respiratory Effort / Characteristics Non-Labored Spontaneous Respiratory Depth Normal Respiratory Pattern Regular Blood Pressure 129/65 Blood Pressure [Right Arm] 131/68 Blood Pressure Mean 86 Blood Pressure Mean [Right Arm] 89 Blood Pressure Position [Right Arm] Sitting Pulse Oximetry 94 94 94 Oxygen Delivery Method Room Air 10/18/18 15:30 10/18/18 15:31 10/18/18 15:56 Temperature Temperature Source Sepsis Recent Fever Within 48 Hours Sepsis Action Taken by Nursing Pulse Rate 122 H 118 H 109 H Pulse Rate [Apical] Pulse Rate from SpO2 Sensor 115 H 115 H 118 H Pulse Rhythm Pulse Rhythm [Apical] Pulse Strength Pulse Strength [Apical] Respiratory Rate 19 28 H 43 H Respiratory Effort / Characteristics Respiratory Depth Respiratory Pattern Blood Pressure 142/111 H 133/101 H Blood Pressure [Right Arm] Blood Pressure Mean 121 111 Blood Pressure Mean [Right Arm] Blood Pressure Position [Right Arm] Pulse Oximetry 95 95 95 Oxygen Delivery Method 10/18/18 16:00 10/18/18 16:01 10/18/18 16:30 Temperature Temperature Source Sepsis Recent Fever Within 48 Hours Sepsis Action Taken by Nursing Pulse Rate 115 H 114 H 106 H Pulse Rate [Apical] Pulse Rate from SpO2 Sensor 113 H Pulse Rhythm Pulse Rhythm [Apical] Pulse Strength Pulse Strength [Apical] Respiratory Rate 24 19 33 H Respiratory Effort / Characteristics Respiratory Depth Respiratory Pattern Blood Pressure 127/89 Blood Pressure [Right Arm] Blood Pressure Mean 101 Blood Pressure Mean [Right Arm] Blood Pressure Position [Right Arm] Pulse Oximetry 95 Oxygen Delivery Method 10/18/18 16:31 Temperature Temperature Source Sepsis Recent Fever Within 48 Hours Sepsis Action Taken by Nursing Pulse Rate 115 H Pulse Rate [Apical] Pulse Rate from SpO2 Sensor Pulse Rhythm Pulse Rhythm [Apical] Pulse Strength Pulse Strength [Apical] Respiratory Rate 33 H Respiratory Effort / Characteristics Respiratory Depth Respiratory Pattern Blood Pressure 141/113 H Blood Pressure [Right Arm] Blood Pressure Mean 122 Blood Pressure Mean [Right Arm] Blood Pressure Position [Right Arm] Pulse Oximetry Oxygen Delivery Method GENERAL: Awake, alert, weak-appearing, in no distress HENT: Normocephalic, atraumatic. EYES: Normal conjunctiva. Sclera non-icteric. NECK: Supple. No nuchal rigidity. RESPIRATORY: Clear to auscultation. Slightly increased work of breathing. CARDIAC: Tachycardic rate. Irregular rhythm. Extremities warm and well perfused. GI: Soft, non-distended. No tenderness to palpation. No rebound or guarding. No masses. RECTAL: Deferred. MUSCULOSKELETAL: Atraumatic. Chest examination reveals no tenderness. LOWER EXTREMITIES: Calves are equal size bilaterally and non-tender. No edema NEURO: Normal sensorium. No sensory or motor deficits noted. No facial droop. SKIN: Warm and dry. No rash or jaundice noted. Course 1330: Past medical records reviewed. The patient was evaluated in room D3B, and a complete history and physical examination were performed. 1610: I consulted Laisha Granda PA-C: [facility]. The patient will be reevaluated for hospitalization. Consultations Consultation #1: I consulted Laisha Granda PA-C: [facility]. The patient will be reevaluated for hospitalization. Time: 16:10 Administered Medications Diltiazem HCl 125 mg/ Dextrose 125 mls @ 5 mls/hr IV .Q24H [facility]; Protocol Stop: 11/17/18 13:44 Last Admin: 10/18/18 15:50 Dose: 5 mg/hr, 5 mls/hr Documented by: [id number] Cosigned by: [id number] Discontinued Medications Diltiazem HCl (Cardizem) 10 mg IV NOW STA Stop: 10/18/18 13:36 Last Admin: 10/18/18 14:19 Dose: 10 mg Documented by: [id number] Cosigned by: [id number] Medical Decision Making Differential Diagnosis Differential diagnosis: Etiologies such as metabolic, infection, hypo/hyperglycemia, electrolyte abnormalities, cardiac sources, intracerebral event, toxicologic, neurologic, as well as others were entertained. Medical Records Attestation: I reviewed the patient's medical records. Home Medications Current Medication List: was personally reviewed by me Laboratory Data Attestation: I reviewed the patient's lab results. Result diagrams: 10/18/18 13:31 10/18/18 14:05 Lab Results 10/18/18 10/18/18 10/18/18 Range/Units 13:31 13:50 14:05 WBC 10.49 (4.8-10.8) K/uL RBC 4.47 (4.2-5.4) M/uL Hgb 13.6 (12.0-16.0) g/dL Hct 41.0 (37-47) % MCV 91.7 (80-100) fL MCH 30.4 (25-34) pg MCHC 33.2 (32-36) g/dL RDW Std Deviation 49.4 H (36.4-46.3) fL RDW Coeff of Barney 14.6 H (11.5-14.5) % Plt Count 279 (130-400) K/uL MPV 11.5 H (7.4-10.4) fL Immature Gran % (Auto) 0.4 % Neut % (Auto) 71.1 % Lymph % (Auto) 15.8 % Ransom % (Auto) 12.3 % Eos % (Auto) 0.1 % Baso % (Auto) 0.3 % Immature Gran # (Auto) 0.04 H (0.00-0.02) K/uL Neut # (Auto) 7.46 H (1.4-6.5) K/uL Lymph # (Auto) 1.66 (1.2-3.4) K/uL Ransom # (Auto) 1.29 H (0.11-0.59) K/uL Eos # (Auto) 0.01 (0-0.5) K/uL Baso # (Auto) 0.03 (0-0.2) K/uL PT 11.1 (9.0-12.0) Seconds INR 1.1 (0.9-1.1) APTT 23.8 (21.0-31.0) Seconds PTT Ratio 0.9 Sodium (136-145) mmol/L Potassium (3.5-5.1) mmol/L Chloride (98-107) mmol/L Carbon Dioxide (21-32) mmol/L Anion Gap (3-11) BUN (7-18) mg/dl Creatinine (0.6-1.2) mg/dl Est Cr Clr Drug Dosing ml/min Est GFR ( Amer) Est GFR (Non-Af Amer) BUN/Creatinine Ratio (10-20) Glucose (70-99) mg/dl Lactate (0.4-2.0) mmol/L Calcium (8.5-10.1) mg/dl Magnesium (1.8-2.4) mg/dl Total Bilirubin (0.2-1) mg/dl AST (15-37) U/L ALT (12-78) U/L Alkaline Phosphatase (45-117) U/L Troponin I (0-0.045) ng/ml NT-Pro-B Natriuret Pep (0-1800) pg/ml Total Protein (6.4-8.2) gm/dl Albumin (3.4-5.0) gm/dl Globulin (2.5-4.0) gm/dl Albumin/Globulin Ratio (0.9-2) 10/18/18 10/18/18 Range/Units 14:05 14:39 WBC (4.8-10.8) K/uL RBC (4.2-5.4) M/uL Hgb (12.0-16.0) g/dL Hct (37-47) % MCV (80-100) fL MCH (25-34) pg MCHC (32-36) g/dL RDW Std Deviation (36.4-46.3) fL RDW Coeff of Barney (11.5-14.5) % Plt Count (130-400) K/uL MPV (7.4-10.4) fL Immature Gran % (Auto) % Neut % (Auto) % Lymph % (Auto) % Ransom % (Auto) % Eos % (Auto) % Baso % (Auto) % Immature Gran # (Auto) (0.00-0.02) K/uL Neut # (Auto) (1.4-6.5) K/uL Lymph # (Auto) (1.2-3.4) K/uL Ransom # (Auto) (0.11-0.59) K/uL Eos # (Auto) (0-0.5) K/uL Baso # (Auto) (0-0.2) K/uL PT (9.0-12.0) Seconds INR (0.9-1.1) APTT (21.0-31.0) Seconds PTT Ratio Sodium 137 (136-145) mmol/L Potassium 3.6 (3.5-5.1) mmol/L Chloride 99 (98-107) mmol/L Carbon Dioxide 30 (21-32) mmol/L Anion Gap 8.0 (3-11) BUN 13 (7-18) mg/dl Creatinine 0.86 (0.6-1.2) mg/dl Est Cr Clr Drug Dosing 29.7 ml/min Est GFR ( Amer) 72.4 Est GFR (Non-Af Amer) 62.5 BUN/Creatinine Ratio 15.3 (10-20) Glucose 135 H (70-99) mg/dl Lactate 1.9 (0.4-2.0) mmol/L Calcium 8.7 (8.5-10.1) mg/dl Magnesium 2.2 (1.8-2.4) mg/dl Total Bilirubin 0.9 (0.2-1) mg/dl AST 23 (15-37) U/L ALT 17 (12-78) U/L Alkaline Phosphatase 83 (45-117) U/L Troponin I 0.025 (0-0.045) ng/ml NT-Pro-B Natriuret Pep 58253 H (0-1800) pg/ml Total Protein 7.5 (6.4-8.2) gm/dl Albumin 2.6 L (3.4-5.0) gm/dl Globulin 4.9 H (2.5-4.0) gm/dl Albumin/Globulin Ratio 0.5 L (0.9-2) Imaging Data Radiologist's Impression: Radiology results as stated below per my review and the radiologist's in terpretation: XR chest 1V portable HISTORY: Dyspnea COMPARISON: None. FINDINGS: The lungs are clear. Cardiac silhouette is normal in size. No pleural effusions. No pneumothorax. IMPRESSION: No acute process. Electronically signed by: Darwin Arellano M.D. 10/18/2018 3:16 PM ECG Data Attestation: I personally reviewed and interpreted this ECG as follows: Indication: weakness Rate (beats per minute): 143 Rhythm: atrial fibrillation Findings: + other (normal axis); no ST depression and no ST elevation Blood Pressure Blood Pressure Findings: Normal blood pressure Blood Pressure Disposition: did not require urgent referral MDM Narrative Patient is a 82-year-old female multiple medical comorbidities recently admitted for UTI and discharged with influenza not doing well at home. Sent from PCP for concern for possible pneumonia found to be in rapid atrial fibrillation upon arrival here. History of intracranial bleed deferred anticoagulation at this time. Start on Cardizem drip with bolus. This is likely contributing to her weakened state. Minimal food intake and generally feeling weak. No evidence of acute pneumonia on chest x-ray. Laboratory studies including lactate and blood cultures were obtained. Patient rate controlled with 10 mg Cardizem bolus initially and drip was held. Chest x-ray shows no acute process or pneumonia. No significant leukocytosis is noted. Kidney function is stable and no acute electrolyte abnormality. Patient continues episodes of RVR here and placed on a diltiazem drip. Patient with trace detectable troponin likely demand related to her tachycardia at times. Lactates not significantly elevated. ProBNP is significantly elevated likely more related to her poor rate control she does not appear to have significant edema or pulmonary edema. Given the uncontrolled A. fib and her generalized decreased oral intake and weakness discussed with the [facility] hospitalist for admission. Impression & Plan Atrial fibrillation with rapid ventricular response, Weakness Discharge Plan Visit Data Chief Complaint: Flu Like Symptoms Stated Complaint: FLU/POSSIBLE PNEUMONIA/DEYHYDRATION ED Provider: Edgardo Schwartz Discharge Problem: Atrial fibrillation with rapid ventricular response, Weakness Patient Disposition: Being Evaluated by Hospitalist Forms Stand Alone Forms: My [facility] Prescriptions Prescriptions: No Action polyethylene glycol 3350 [Miralax] 17 gram Powder In Packet 17 g PO DAILY PRN (Reason: Constipation) RF: 0 ondansetron HCl [Zofran] 4 mg tablet 4 mg PO TID PRN (Reason: Nausea) RF: 0 dronabinol [Marinol] 2.5 mg capsule 2.5 mg PO BID PRN (Reason: Other) RF: 0 metoprolol tartrate [Lopressor] 50 mg tablet 50 mg PO BID RF: 0 gabapentin [Neurontin] 100 mg capsule 100 mg PO TID RF: 0 fluticasone propionate [Flonase Allergy Relief] 50 mcg/actuation [place],Suspension 2 spray INTRANASAL DAILY PRN (Reason: Allergy Symptoms) RF: 0 Restasis 0.05 % dropperette 2 drp OPB DAILY RF: 0 aspirin 81 mg Tablet,Delayed Release (Dr/Ec) 81 mg PO QAM RF: 0 oseltamivir [Tamiflu] 30 mg capsule 30 mg PO BID Qty: 9 RF: 0 cefdinir 300 mg capsule 300 mg PO BID RF: 0 Referrals Referrals: Analia Yates DO [Primary Care Provider] - The scribe's documentation has been prepared under my direction and personally reviewed by me in its entirety. I confirm that the note above accurately reflects all work, treatment, procedures, and medical decision making performed by me.
--- NOTE | 2018-10-18 17:27 | History & Physical Report ---
Date of Service October 18, 2018 Assessment & Plan (1) Atrial fibrillation with rapid ventricular response: Pt with hx PAF on pacer interrogation in past. Upon arrival to ER pt afebrile, R: 20, BP: 131/86, 94% on RA. Patient found to be in rapid a-fib at rate of 140. Pt denies CP, SOB, palpitations. Reported felt a little dizzy today. EKG: a-fib, rate 143. Initial troponin: 0.025, magnesium: 2.2, K: 3.6. In ER patient was given diltiazem 10 mg IV and started on diltiazem drip with pulse down into the 90s to low 100s. Probable secondary to dehydration, recent infection -trend troponin- pt refuses more lab draws today as is hard stick, will add troponin for am labs -pending TSH -echo -gentle IVF -continue cardizem drip -metoprolol tartrate 50mg po BID -hold on anticoagulation secondary to history hemorrhagic stroke -cardiology consult (2) Cough: Pt with cough for past week. Had diagnosis of influenza last week. On tamiflu which she states has few more doses remaining -finish tamiflu (3) Recent urinary tract infection: Hospitalized last week secondary to UTI - e.coli. Discharged on cefdinir -finish last dose of cefdinir tonight -denies urinary symptoms (4) Chronic CHF: 04/2018 Echo: EF: 40-44%, grade 2 diastolic dysfunction. 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 During last admission had CT: Moderate superior endplate compression deformity at T12 which is new from the prior study but appears to be chronic. There is 3 mm of retropulsion resulting in mild central canal narrowing at this level. The T11 and L5 compression deformities remain unchanged. At that time pt denied any surgical intervention or ortho consult -continue gabapentin DVT Prophylaxis -SCDs DNR/DNI as per discussion with pt and pt's family Follows with Dr Analia Yates for routine care Pt was seen with Dr Pierre. See addendum History of Present Illness Chief Complaint: Cough Primary Care Provider: Analia Yates Pt is 82 y/o F with PMH CAD, ischemic cardiomyopathy, chronic LLE DVT, s/p IVC filter, HTN, PAF, sick sinus syndrome s/p pacemaker, dyslipidemia, h/o hemorrhagic pontine CVA, chronic back pain and left leg pain presented to ER from PCPs office for complaint of cough. Patient with history of hospitalization 10/11/18-10/13/18 for complicated UTI, back pain and was found to be flu positive. Patient was discharged on cefdinir and Tamiflu. Patient states has additional doses of Tamiflu remaining in tonight's dose of cefdinir. States she has had continued cough which was sometimes productive and has been coughing and feels it has been aggravating her chronic back pain. Patient denies shortness of breath, chest pain, hemoptysis. States last night felt hot however did not take her temperature. Upon arrival to ER patient found to be in rapid a-fib at rate of 140. Patient denies palpitations. States felt a little dizzy upon ER arrival. She reports since hospital discharge has not been eating or drinking well and having some intermittent nausea. Denies diaphoresis, V/D/C, JARAMILLO, syncope, vision changes, neck pain, hemoptysis, sore throat, choking, otalgia, rhinorrhea, abdominal pain, paresthesias, extremity edema, rashes, urinary symptoms. In ER patient was given diltiazem 10 mg IV and started on diltiazem drip with pulse down into the 90s to low 100s. Allergies Allergy/AdvReac Type Severity Reaction Status Date / Time cephalexin Allergy Intermediate Hives Verified 10/13/18 09:12 codeine Allergy Unknown edema Verified 08/08/18 20:30 airway,rash & hives egg Allergy Unknown ALLERGY TO Verified 08/08/18 20:30 EGG WHITES ketorolac Allergy Unknown Unknown Verified 08/08/18 20:30 omeprazole Allergy Unknown unknown Verified 08/08/18 20:30 propoxyphene Allergy Unknown Unknown Verified 08/08/18 20:30 Sulfa (Sulfonamide Allergy Unknown Unknown Verified 08/08/18 20:30 Antibiotics) capsaicin AdvReac Severe HIGH BP Verified 08/08/18 20:30 diclofenac AdvReac Severe HIGH BP Verified 08/08/18 20:30 Diclopak AdvReac Severe HIGH BP Verified 03/09/18 20:00 isopropyl alcohol AdvReac Severe HIGH BP Verified 08/08/18 20:30 propylene glycol AdvReac Severe HIGH BP Verified 08/08/18 20:30 tizanidine AdvReac Intermediate DELIRIUM Verified 03/09/18 20:00 sucralfate AdvReac Unknown itching,n/v Verified 03/09/18 20:00 Home Medications Home Medications Medication Instructions Recorded Confirmed Type Restasis 2 drp OPB DAILY 08/08/18 10/18/18 History dronabinol [Marinol] 2.5 mg PO BID PRN 08/08/18 10/18/18 History fluticasone propionate [Flonase 2 spray INTRANASAL DAILY PRN 08/08/18 10/18/18 History Allergy Relief] gabapentin [Neurontin] 100 mg PO TID 08/08/18 10/18/18 History metoprolol tartrate [Lopressor] 50 mg PO BID 08/08/18 10/18/18 History ondansetron HCl [Zofran] 4 mg PO TID PRN 08/08/18 10/18/18 History polyethylene glycol 3350 [Miralax] 17 g PO DAILY PRN 08/08/18 10/18/18 History aspirin 81 mg PO QAM 10/11/18 10/18/18 History oseltamivir [Tamiflu] 30 mg PO BID #9 cap 10/13/18 10/18/18 Rx cefdinir 300 mg PO BID 10/18/18 10/18/18 History Past Med/Surg History Medical History History of recurrent deep vein thrombosis (DVT) (Chronic) Sick sinus syndrome (Chronic) Chronic CHF (Chronic) Paroxysmal atrial fibrillation (Chronic) Complicated UTI (urinary tract infection) (Resolved) T12 compression fracture (Acute) CAD (coronary artery disease) (Chronic) "left cx PCI 2003" Sinoatrial node dysfunction (Chronic) PAT (paroxysmal atrial tachycardia) (Chronic) 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" Pacemaker (Chronic) "with mass noted on lead in right ventricle" Chronic pain (Chronic) Left leg pain (Chronic) Surgical History S/P IVC filter (Chronic) History of repair of hiatal hernia (Chronic) H/O splenectomy (Chronic) History of tonsillectomy and adenoidectomy (Chronic) Family History Other Family history non-contributory Social History Preferred Language: Yi Communication Ability: Effective Beliefs That Will Affect Care: None Current Living Situation: Alone Current Living Situation Comment: 24 hour care Other Information That Helps Us Care for You: No Feels Safe at Home: Yes Safety Concerns: Feels Safe At This Time Smoking Status: Never smoker Hx Alcohol Use: No Hx Substance Use: No Review of Systems All systems reviewed & are unremarkable except as noted in HPI & below Physical Exam Vital Signs (Past 24 Hours): Last Vital Signs Temp 36.5 C 10/18/18 13:03 Pulse 115 H 10/18/18 16:31 Resp 33 H 10/18/18 16:31 BP 141/113 H 10/18/18 16:31 Pulse Ox 95 10/18/18 16:01 Physical Exam: General: no apparent distress, very thin Head: normocephalic, atraumatic Eyes: PERRL, EOM's intact, conjunctiva non-injected, anicteric ENT: normal inspection external ears, nose, mucous membranes dry Neck: supple, trachea midline Lungs: no respiratory distress, diminished CV:irregularly irregular, rate 104, no pretibial edema Abd: normal BS, soft, non-tender Ext: no cyanosis, no calf tenderness Neuro: A&O x 3, no focal deficits noted, normal affect Skin: warm, dry Results & Data Laboratory Results Short CBC 10/18/18 Range/Units 13:31 WBC 10.49 (4.8-10.8) K/uL Hgb 13.6 (12.0-16.0) g/dL Hct 41.0 (37-47) % Plt Count 279 (130-400) K/uL BMP 10/18/18 14:05 Sodium 137 Potassium 3.6 Chloride 99 Carbon Dioxide 30 BUN 13 Creatinine 0.86 Glucose 135 H Calcium 8.7 Cardiac Enzymes 10/18/18 Range/Units 14:05 Troponin I 0.025 (0-0.045) ng/ml Liver Function 10/18/18 Range/Units 14:05 Total Bilirubin 0.9 (0.2-1) mg/dl AST 23 (15-37) U/L ALT 17 (12-78) U/L Alkaline Phosphatase 83 (45-117) U/L Albumin 2.6 L (3.4-5.0) gm/dl Diagnostic Findings CXR: IMPRESSION: No acute process. Supervising Physician Co-Signing Physician Notes Patient is an 82-year-old female with multiple comorbidities presents with hi story of dry cough, chronic back pain. Patient was recently discharged after being treated for UTI and was tested positive for flu. Patient is currently on Cefdinir and Tamiflu. Patient was noted to have A. fib RVR while in ED. Patient is currently not on any anticoagulation secondary to history of intracranial hemorrhage. Pacemaker interrogation was done while in ED. On exam patient is thin, frail, no apparent distress, normocephalic atraumatic, lungs are clear to auscultation, decreased breath sounds, irregularly irregular rhythm, no murmur, abdomen is soft nontender, grossly no focal deficits, no pedal edema. Patient is started on Cardizem drip while in ED. Currently she denies any chest pain. Plan to resume metoprolol. Titrate Cardizem as able. Check echo, TSH, cardiology is consulted. Clinically dehydrated, plan to give gentle IV fluids. Monitor electrolytes. I personally reviewed the record. Patient is interviewed and examined at bedside. Patient's care is coordinated with Rochelle Granda PA-C. Please refer to the documentation above for details of patient's presentation and for discussion of other issues.
[2018-10-18] MEDS ORDERED: POTASSIUM CHLORIDE 20 MEQ TABCR PO ONE (17:40)
[2018-10-18] MEDS ORDERED: DRONABINOL 2.5 MG CAP PO PRN (21:45)
[2018-10-18] MEDS ORDERED: POLYETHYLENE (MIRALAX) 17 GM PACK PO PRN (21:45)
[2018-10-18] MEDS: GABAPENTIN 100 MG CAP PO SCH (22:13)
[2018-10-18] MEDS: METOPROLOL TARTRATE 50 MG TAB PO SCH (22:16)
[2018-10-19 06:17] LABS: Hematocrit (blood only) 38.1 % (37-47); Hemoglobin 12.5 g/dL (12.0-16.0); Mean Corpuscular Hgb Conc 32.8 g/dL (32-36); Mean Corpuscular Volume 90.9 fL (80-100); Mean Platelet Volume 10.6 fL (7.4-10.4); Platelet Count 266 K/uL (130-400); RDW Coefficient of Variation 14.6 % (11.5-14.5); RDW Standard Deviation 49.1 fL (36.4-46.3); Red Blood Count 4.19 M/uL (4.2-5.4); White Blood Count 10.02 K/uL (4.8-10.8)
[2018-10-19 06:47] LABS: Basophils # (auto) 0.03 K/uL (0-0.2); Basophils % (auto) 0.3 %; Eosinophils # (auto) 0.04 K/uL (0-0.5); Eosinophils % (auto) 0.4 %; Immature Granulocytes # (auto) 0.02 K/uL (0.00-0.02); Immature Granulocytes % (auto) 0.2 %; Lymphocytes # (auto) 1.83 K/uL (1.2-3.4); Lymphocytes % (auto) 18.3 %; Monocytes # (auto) 1.12 K/uL (0.11-0.59); Monocytes % (auto) 11.2 %; Neutrophils # (auto) 6.98 K/uL (1.4-6.5); Neutrophils % (auto) 69.6 %
[2018-10-19 06:50] LABS: BUN Creatinine Ratio 21.4 (10-20); Calcium 8.5 mg/dl (8.5-10.1); Creatinine Clr Calc Pharmacy 43.3 ml/min; Est GFR (African American) 98.2; Est GFR (Non-African American) 84.8; Magnesium 2.1 mg/dl (1.8-2.4)
[2018-10-19] MEDS: METOPROLOL TARTRATE 50 MG TAB PO SCH ×2 (08:01→22:00)
[2018-10-19] MEDS: ASPIRIN 81 MG ECTAB PO SCH (08:01)
[2018-10-19] MEDS: GABAPENTIN 100 MG CAP PO SCH ×3 (08:01→22:00)
[2018-10-19] MEDS: dilTIAZem HCl 125 MG in DEXTROSE 5% 100 ML IV SCH (15:32)
--- NOTE | 2018-10-19 15:34 | Consultation Report ---
DATE OF CONSULTATION: 10/19/2018 INPATIENT CARDIOLOGY CONSULTATION CONSULTATION REQUESTED BY: Rochelle Granda PA-C. REASON FOR CONSULTATION: Atrial fibrillation with rapid ventricular response. HISTORY OF PRESENT ILLNESS: Mrs. Shirley is a very pleasant 82-year-old woman who normally follows with Dr. Yates of our cardiology practice. She was recently admitted to [facility] last week for a complicated UTI and influenza infection. She was ultimately discharged to home and has been still dealing with a cough. The night before presentation, she felt warm and thought she might be febrile, so she came in the ER where she did not have a fever, but she was found to be in atrial fibrillation with rapid ventricular response and admitted to feel a little bit dizzy upon arrival. She then admitted to not eating and drinking much since hospitalization due to lack of appetite. She was initially given a diltiazem bolus and drip and admitted to telemetry. This whole time, she denied experiencing any palpitations, shortness of breath, chest pain or syncope. Since arriving to the floor, she states that she has been feeling much better. She is still getting over the flu, still little weak and achy, but again denies any cardiac complaints and the patient spontaneously converted on her own. PAST SURGICAL HISTORY: 1. [employer] permanent pacemaker placement complicated by mass on the 12-lead, which has been stable since 2012. 2. History of PCI to the circumflex. 3. Cystoscopy. 4. Nephrostomy tube. 5. Splenectomy. 6. Tonsil and adenoidectomy. 7. Hernia repair. MEDICAL ILLNESSES: 1. Paroxysmal atrial tachycardia. 2. Very brief salvos of atrial fibrillation, the longest being found incidentally on pacemaker interrogation would be 3 hours. 3. Stable pacemaker lead mass. 4. Coronary artery disease. 5. Sick sinus syndrome, status post permanent pacemaker placement. 6. Chronic left lower extremity DVT. 7. History of hemorrhagic pontine CVA, no longer an anticoagulation candidate. 8. Dyslipidemia, statin intolerance. 9. Hypertension. FAMILY HISTORY: Noncontributory. SOCIAL HISTORY: Denies any alcohol, tobacco or recreational drug use. REVIEW OF SYSTEMS: As per HPI, all other review of systems reviewed and negative at this time. ALLERGIES: 1. CODEINE. 2. KETOROLAC. 3. DARVOCET. 4. EGG. 5. OMEPRAZOLE. 6. PROPOXYPHENE. 7. SULFA. 8. CAPSAICIN. 9. DICLOFENAC. 10. ISOPROPYL ALCOHOL. 11. PROPYLENE GLYCOL. 12. TIZANIDINE. 13. SUCRALFATE. MEDICATIONS AN OUTPATIENT: 1. Metoprolol tartrate 50 mg b.i.d. 2. Neurontin. 3. Marinol. PHYSICAL EXAMINATION: VITALS: Temperature 36.8, pulse 64, respiratory rate 12, blood pressure 157/64. GENERAL: Awake, alert, oriented x3, frail and cachectic in appearance. No acute distress. HEENT: Normocephalic, atraumatic. Pupils equal, round, reactive to light and accommodation. Extraocular muscles intact. Anicteric sclerae. Moist mucous membranes. NECK: No JVD, no bruit. CARDIOVASCULAR: Regular, but distant. Unable to appreciate any murmurs, rubs or gallops. PULMONARY: Scattered rhonchi. No rales or wheezing. ABDOMEN: Bowel sounds x4, soft. No rebound, guarding, tenderness. No organomegaly. EXTREMITIES: No clubbing, cyanosis or edema. +2 pedal pulses bilaterally. SKIN: Warm and dry. TEST RESULTS: Pacer interrogation reveals a 90-minute episode of atrial fibrillation occurring on October 15, a 17-hour episode on the , and a 2-hour episode on the . IMPRESSION: 1. Paroxysmal atrial fibrillation, asymptomatic. 2. History of pontine cerebrovascular accident, no longer an anticoagulation candidate. 3. Sick sinus syndrome, status post permanent pacemaker placement. 4. Recent complicated urinary tract infection and influenza infection. RECOMMENDATIONS: It was my pleasure to see Ms. Shirley in reevaluation today. From a cardiac standpoint, the patient spontaneously converted to sinus on her own and given the current clinical context, I do not believe any further changes are necessary. Obviously, she is not an anticoagulation candidate and I maintain on her current dose of metoprolol without any other changes.
--- NOTE | 2018-10-19 18:41 | Hospitalist Progress Note ---
Date of Service October 19, 2018 Assessment & Plan (1) Atrial fibrillation with rapid ventricular response: Paroxysmal atrial fibrillation Sick sinus syndrome with pacemaker Patient presented to the hospital on 10/18/18 with atrial fibrillation and rapid ventricular response Patient was continued on home oral metoprolol and was on cardiazem drip Then as of 5 AM on 10/19/18 the telemetry showing resolution of atrial fibrillation with rapid ventricular response and patient in paced rhythm and r egular heart rates -As per cardiology service evaluation: Pacer interrogation reveals a 90-minute episode of atrial fibrillation occurring on October 15, a 17-hour episode on the , and a 2-hour episode on the . -patient is on home dose medications of metoprolol being monitored on telemetry to see further arrhythmia will develop (2) Cough: recent diagnosis of influenza on recent previous hospitalizations last week on droplet precautions as per nursing protocols (3) Recent urinary tract infection: patient has completed antibiotics from recent previous hospitalization for urinary tract infection from E.coli (4) Sick sinus syndrome: S/P pacemaker -pacer interrogation (5) CAD (coronary artery disease): Chronic ischemic heart disease history of Lcx PCI in 2003 -is not on diuretic at home -continue metoprolol, aspirin Echocardiogram on this admission: Aortic valve sclerosis is mild, without significant aortic valvular stenosis The left ventricle is grossly normal size There is inferior wall akinesis There is lateral wall akinesis Ejection Fraction 55 to 55% The right ventricular systolic function is normal There is moderate to severe mitral regurgitation There is moderate to severe tricuspid regurgitation The left atrium is moderately dilated The right atrium is mildly dilated (6) History of recurrent deep vein thrombosis (DVT): (7) S/P IVC filter: Not on anticoagulants secondary to brain hemorrhage in the past (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 During last recent hospital admission had CT: Moderate superior endplate compression deformity at T12 which is new from the prior study but appears to be chronic. There is 3 mm of retropulsion resulting in mild central canal narrowing at this level. The T11 and L5 compression deformities remain unchanged. At that time pt denied any surgical intervention or ortho consult -continue gabapentin DVT Prophylaxis -SCDs DNR/DNI as per discussion with pt and pt's family Daughter [phone] Subjective Patient denies chest pain or shortness of breath Heart rate is bradycardic and paced rhythm Patient at baseline moves by wheelchair at home as per her daughters and they have private care givers so that patient can live at home Physical Exam Vital Signs (Past 24 Hours): Last Vital Signs Temp 36.6 C 10/19/18 15:36 Pulse 60 10/19/18 16:00 Resp 16 10/19/18 15:36 BP 144/61 H 10/19/18 15:36 Pulse Ox 93 10/19/18 15:36 Constitutional: + thin Eyes: PERRL, conjunctivae normal, anicteric sclerae EOM intact bilaterally ENMT: external ear and nose normal, oropharynx normal Neck: trachea midline, no thyromegaly Respiratory: normal respiratory effort, lungs clear to auscultation Cardiovascular: Rate/Rhythm: regular rhythm and + bradycardic Gastrointestinal (Abdomen): normal bowel sounds, soft, nontender, no hepatosplenomegaly Musculoskeletal: Head/Neck/Chest: normocephalic and head atraumatic Neurologic: PERRL, EOMI, accommodation nl, no face palsy, no dysarthria Psychiatric: A+Ox3, euthymic affect
[2018-10-20] MEDS: METOPROLOL TARTRATE 50 MG TAB PO SCH (08:10)
[2018-10-20] MEDS: ASPIRIN 81 MG ECTAB PO SCH (08:10)
[2018-10-20] MEDS: GABAPENTIN 100 MG CAP PO SCH ×2 (08:11→12:40)
--- NOTE | 2018-10-20 12:47 | Hospitalist Progress Note ---
Date of Service October 20, 2018 Assessment & Plan (1) Atrial fibrillation with rapid ventricular response: Paroxysmal atrial fibrillation Sick sinus syndrome with pacemaker Patient presented to the hospital on 10/18/18 with atrial fibrillation and rapid ventricular response Patient was continued on home oral metoprolol and was on cardiazem drip Then as of 5 AM on 10/19/18 the telemetry showing resolution of atrial fibrillation with rapid ventricular response and patient in paced rhythm and r egular heart rates -As per cardiology service evaluation: Pacer interrogation reveals a 90-minute episode of atrial fibrillation occurring on October 15, a 17-hour episode on the , and a 2-hour episode on the . -patient is on home dose medications of metoprolol andmonitored on telemetry to see further arrhythmia will develop -10/20/18: Discussed with patient's family members that since patient heart rates continue to be stable that she can be discharged to home under the family's care and other home supports. Patient should follow with family medical doctor. (2) Cough: recent diagnosis of influenza on recent previous hospitalizations last week on droplet precautions as per nursing protocols cough has generally resolved, can be discharged to home off droplet precautions (3) Recent urinary tract infection: patient has completed antibiotics from recent previous hospitalization for urinary tract infection from E.coli (4) Sick sinus syndrome: has pacemaker -pacer interrogation completed as described above (5) CAD (coronary artery disease): Chronic ischemic heart disease history of Lcx PCI in 2003 -is not on diuretic at home -continue metoprolol, aspirin Echocardiogram on this admission: Aortic valve sclerosis is mild, without significant aortic valvular stenosis The left ventricle is grossly normal size There is inferior wall akinesis There is lateral wall akinesis Ejection Fraction 55 to 55% The right ventricular systolic function is normal There is moderate to severe mitral regurgitation There is moderate to severe tricuspid regurgitation The left atrium is moderately dilated The right atrium is mildly dilated (6) History of recurrent deep vein thrombosis (DVT): (7) S/P IVC filter: Not on anticoagulants secondary to brain hemorrhage in the past (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 During last recent hospital admission had CT: Moderate superior endplate compression deformity at T12 which is new from the prior study but appears to be chronic. There is 3 mm of retropulsion resulting in mild central canal narrowing at this level. The T11 and L5 compression deformities remain unchanged. At that time pt denied any surgical intervention or ortho consult -continue gabapentin DVT Prophylaxis -SCDs DNR/DNI as per discussion with pt and pt's family Daughter [phone] Discharge Diagnosis Atrial fibrillation with rapid ventricular response; Paroxysmal atrial fibrillation; Sick sinus syndrome with pacemaker; chronic low back pain Discharge Instructions Follow up with primary care doctor on Tuesday10/25/2018 2:40 PM Provider Charline Chavis MD Department Family [facility] scheduled clinic appointments 11/10/2018 11:00 AM Provider Florence Rollins MD Department Urology, [facility] 12/08/2018 10:30 AM Provider Pacer Clinic [facility] Department Cardiology, [facility] 03/12/2019 1:30 PM Provider Jani Yates DO Department Cardiology, [facility] Subjective Patient denies chest pain or shortness of breath Heart rate is bradycardic and paced rhythm Patient at baseline moves by wheelchair at home as per her daughters and they have private care givers so that patient can live at home Discussed with patient's family members that since patient heart rates continue to be stable that she can be discharged to home under the family's care and other home supports. Patient should follow with family medical doctor. Physical Exam Vital Signs (Past 24 Hours): Last Vital Signs Temp 36.8 C 10/20/18 11:36 Pulse 65 10/20/18 11:36 Resp 18 10/20/18 11:36 BP 156/60 H 10/20/18 11:36 Pulse Ox 96 10/20/18 11:36 Constitutional: + thin Eyes: PERRL, conjunctivae normal, anicteric sclerae EOM intact bilaterally ENMT: external ear and nose normal, oropharynx normal Neck: trachea midline, no thyromegaly Respiratory: normal respiratory effort, lungs clear to auscultation Cardiovascular: Rate/Rhythm: regular rhythm and + bradycardic Gastrointestinal (Abdomen): normal bowel sounds, soft, nontender, no hepatosplenomegaly Musculoskeletal: Head/Neck/Chest: normocephalic and head atraumatic Neurologic: PERRL, EOMI, accommodation nl, no face palsy, no dysarthria Psychiatric: A+Ox3, euthymic affect
--- NOTE | 2018-10-20 12:52 | Discharge Summary ---
Date of Service October 20, 2018 Admission HPI Per Admitting Provider Pt is 82 y/o F with PMH CAD, ischemic cardiomyopathy, chronic LLE DVT, s/p IVC filter, HTN, PAF, sick sinus syndrome s/p pacemaker, dyslipidemia, h/o hemorrhagic pontine CVA, chronic back pain and left leg pain presented to ER from PCPs office for complaint of cough. Patient with history of hospitalization 10/11/18-10/13/18 for complicated UTI, back pain and was found to be flu positive. Patient was discharged on cefdinir and Tamiflu. Patient states has additional doses of Tamiflu remaining in tonight's dose of cefdinir. States she has had continued cough which was sometimes productive and has been coughing and feels it has been aggravating her chronic back pain. Patient denies shortness of breath, chest pain, hemoptysis. States last night felt hot however did not take her temperature. Upon arrival to ER patient found to be in rapid a-fib at rate of 140. Patient denies palpitations. States felt a little dizzy upon ER arrival. She reports since hospital discharge has not been eating or drinking well and having some intermittent nausea. Denies diaphoresis, V/D/C, JARAMILLO, syncope, vision changes, neck pain, hemoptysis, sore throat, choking, otalgia, rhinorrhea, abdominal pain, paresthesias, extremity edema, rashes, urinary symptoms. In ER patient was given diltiazem 10 mg IV and started on diltiazem drip with pulse down into the 90s to low 100s. Admission Exam Per Admitting Provider General: no apparent distress, very thin Head: normocephalic, atraumatic Eyes: PERRL, EOM's intact, conjunctiva non-injected, anicteric ENT: normal inspection external ears, nose, mucous membranes dry Neck: supple, trachea midline Lungs: no respiratory distress, diminished CV:irregularly irregular, rate 104, no pretibial edema Abd: normal BS, soft, non-tender Ext: no cyanosis, no calf tenderness Neuro: A&O x 3, no focal deficits noted, normal affect Skin: warm, dry Principal Diagnosis Atrial fibrillation with rapid ventricular response; Paroxysmal atrial fibrillation; Sick sinus syndrome with pacemaker; chronic low back pain Discharge Exam Constitutional + thin Eyes PERRL, conjunctivae normal, anicteric sclerae EOM intact bilaterally ENMT external ear and nose normal, oropharynx normal Neck trachea midline, no thyromegaly Respiratory normal respiratory effort, lungs clear to auscultation Cardiovascular Rate/Rhythm: regular rhythm and + bradycardic Gastrointestinal (Abdomen) normal bowel sounds, soft, nontender, no hepatosplenomegaly Musculoskeletal Head/Neck/Chest: normocephalic and head atraumatic Neurologic PERRL, EOMI, accommodation nl, no face palsy, no dysarthria Psychiatric A+Ox3, euthymic affect Discharge Data Allergies Allergy/AdvReac Type Severity Reaction Status Date / Time cephalexin Allergy Intermediate Hives Verified 10/13/18 09:12 codeine Allergy Unknown edema Verified 08/08/18 20:30 airway,rash & hives egg Allergy Unknown ALLERGY TO Verified 08/08/18 20:30 EGG WHITES ketorolac Allergy Unknown Unknown Verified 08/08/18 20:30 omeprazole Allergy Unknown unknown Verified 08/08/18 20:30 propoxyphene Allergy Unknown Unknown Verified 08/08/18 20:30 Sulfa (Sulfonamide Allergy Unknown Unknown Verified 08/08/18 20:30 Antibiotics) capsaicin AdvReac Severe HIGH BP Verified 08/08/18 20:30 diclofenac AdvReac Severe HIGH BP Verified 08/08/18 20:30 Diclopak AdvReac Severe HIGH BP Verified 03/09/18 20:00 isopropyl alcohol AdvReac Severe HIGH BP Verified 08/08/18 20:30 propylene glycol AdvReac Severe HIGH BP Verified 08/08/18 20:30 tizanidine AdvReac Intermediate DELIRIUM Verified 03/09/18 20:00 sucralfate AdvReac Unknown itching,n/v Verified 03/09/18 20:00 Consultations 10/18/18 16:12 ED Decision to Admit Stat 10/19/18 07:39 Consult Cardiology Routine Hospital Course (1) Atrial fibrillation with rapid ventricular response: Paroxysmal atrial fibrillation Sick sinus syndrome with pacemaker Patient presented to the hospital on 10/18/18 with atrial fibrillation and rapid ventricular response Patient was continued on home oral metoprolol and was on cardiazem drip Then as of 5 AM on 10/19/18 the telemetry showing resolution of atrial fibrillation with rapid ventricular response and patient in paced rhythm and regular heart rates -As per cardiology service evaluation: Pacer interrogation reveals a 90-minute episode of atrial fibrillation occurring on October 15, a 17-hour episode on the , and a 2-hour episode on the . -patient is on home dose medications of metoprolol andmonitored on telemetry to see further arrhythmia will develop -10/20/18: Discussed with patient's family members that since patient heart rates continue to be stable that she can be discharged to home under the family's care and other home supports. Patient should follow with family medical doctor. (2) Cough: recent diagnosis of influenza on recent previous hospitalizations last week on droplet precautions as per nursing protocols cough has generally resolved, can be discharged to home off droplet precautions (3) Recent urinary tract infection: patient has completed antibiotics from recent previous hospitalization for urinary tract infection from E.coli (4) Sick sinus syndrome: has pacemaker -pacer interrogation completed as described above (5) CAD (coronary artery disease): Chronic ischemic heart disease history of Lcx PCI in 2003 -is not on diuretic at home -continue metoprolol, aspirin Echocardiogram on this admission: Aortic valve sclerosis is mild, without significant aortic valvular stenosis The left ventricle is grossly normal size There is inferior wall akinesis There is lateral wall akinesis Ejection Fraction 55 to 55% The right ventricular systolic function is normal There is moderate to severe mitral regurgitation There is moderate to severe tricuspid regurgitation The left atrium is moderately dilated The right atrium is mildly dilated (6) History of recurrent deep vein thrombosis (DVT): (7) S/P IVC filter: Not on anticoagulants secondary to brain hemorrhage in the past (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 During last recent hospital admission had CT: Moderate superior endplate compression deformity at T12 which is new from the prior study but appears to be chronic. There is 3 mm of retropulsion resulting in mild central canal narrowing at this level. The T11 and L5 compression deformities remain unchanged. At that time pt denied any surgical intervention or ortho consult -continue gabapentin DVT Prophylaxis -SCDs DNR/DNI as per discussion with pt and pt's family Daughter [phone] Discharge Diagnosis Atrial fibrillation with rapid ventricular response; Paroxysmal atrial fibrillation; Sick sinus syndrome with pacemaker; chronic low back pain Discharge Instructions Follow up with primary care doctor on Tuesday10/25/2018 2:40 PM Provider Charline Chavis MD Department [facility] Other scheduled clinic appointments 11/10/2018 11:00 AM Provider Florence Rollins MD Department Urology, [facility] 12/08/2018 10:30 AM Provider [facility] Cardiology, [facility] 03/12/2019 1:30 PM Provider Jani Yates DO Department Cardiology, [facility] Total Time Total Time Spent Total Time Spent (In Minutes): 40 minutes Total Time Includes: Examination of the Patient, Discharge Planning and Medication Reconciliation Discharge Plan Discharge Items Patient Disposition: Home - Home Health Services Reason For Visit: AFIB RVR Discharge Diagnosis: Atrial fibrillation with rapid ventricular response; Paroxysmal atrial fibrillation; Sick sinus syndrome with pacemaker; chronic low back pain Condition: Good Discharge Goals: Improve disease control Activity: Resume your previous activity Non-emergency contact: Primary Care Provider Call non-emergency contact if: you have any medication questions Follow-up/Referrals: Analia Yates DO [Primary Care Provider] - Diet: Heart Healthy Addtl Provider Instructions: Discharge Instructions Follow up with primary care doctor on Tuesday10/25/2018 2:40 PM Provider Charline Chavis MD Department [facility] Other scheduled clinic appointments 11/10/2018 11:00 AM Provider Florence Rollins MD Department Urology, [facility] 12/08/2018 10:30 AM Provider [facility] Cardiology, [facility] 03/12/2019 1:30 PM Provider Jani Yates DO Department Cardiology, [facility] Prescriptions: Continued polyethylene glycol 3350 [Miralax] 17 gram Powder In Packet 17 g PO DAILY PRN (Reason: Constipation) RF: 0 ondansetron HCl [Zofran] 4 mg tablet 4 mg PO TID PRN (Reason: Nausea) RF: 0 dronabinol [Marinol] 2.5 mg capsule 2.5 mg PO BID PRN (Reason: Other) RF: 0 metoprolol tartrate [Lopressor] 50 mg tablet 50 mg PO BID RF: 0 gabapentin [Neurontin] 100 mg capsule 100 mg PO TID RF: 0 fluticasone propionate [Flonase Allergy Relief] 50 mcg/actuation [place],Suspension 2 spray INTRANASAL DAILY PRN (Reason: Allergy Symptoms) RF: 0 Restasis 0.05 % dropperette 2 drp OPB DAILY RF: 0 aspirin 81 mg Tablet,Delayed Release (Dr/Ec) 81 mg PO QAM RF: 0 Discontinued oseltamivir [Tamiflu] 30 mg capsule 30 mg PO BID Qty: 9 RF: 0 cefdinir 300 mg capsule 300 mg PO BID RF: 0 Stand-Alone Forms: [facility] Discharge Orders: Discharge Order (Routine); Ordered 10/20/18 Ordered By: Goyo Aaron Admission Data Admit Date/Time: 10/18/18 17:19 Attending Provider: Goyo Aaron Admit Provider: Rich Pierre Primary Care Provider: Analia Yates Other Providers: Rich Pierre ; Elan Read Service: Telemetry Other Interventions: Discharge Summary Assessment (RN) Last Done: 10/20/18 09:32
== END 2018-10-20 13:49 | disposition home health service (06) | DRG 310 ==
LOC: ED 12:53 → 2S 17:19

== ENCOUNTER 2019-02-02 13:44 | Observation (INO) ==
--- OUTSIDE RECORDS SUMMARY | 2019-02-02 13:48 | External Medical Summary | Continuity of Care Document ---
:1935 Author Name Heidi Barrett Address Unavailable Unavailable , Care Team Providers Name Role Phone Dc DO Unavailable [email or web address] Problems Mitral valve disorder (394.9) (I05.9) Left leg DVT (453.40) (I82.402) HTN (hypertension) (401.9) (I10) Dyslipidemia (272.4) (E78.5) Chronic cystitis (595.2) (N30.20) Abdominal pain (789.00) (R10.9) GERD (gastroesophageal reflux disease) (530.81) (K21.9) Mass of right cardiac ventricle (429.89) (I51.89) Paroxysmal atrial tachycardia (427.0) (I47.1) Paroxysmal supraventricular tachycardia (427.0) (I47.1) UTI (urinary tract infection) (599.0) (N39.0) Intraparenchymal hemorrhage of brain (431) (I61.9) Ataxia (781.3) (R27.0) Nausea (787.02) (R11.0) Vertigo (780.4) (R42) Brainstem hemorrhage (431) (I61.3) Osteoporosis (733.00) (M81.0) 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 Refills: 0 Aspirin 81 MG TABS; TAKE 1 TABLET DAILY. Quantity: 90 Refills: 3 Ondansetron HCl - 4 MG Oral Tablet; TAKE 1 TABLET BY MOUTH 3 TIMES A DAY NEEDED FOR NAUSEA Refills: 0 Fluticasone Propionate 50 MCG/ACT Nasal Suspension; USE 1 TO 2 SPRAYS IN EACH NOSTRIL ONCE DAILY. Refills: 0 Metoprolol Tartrate 50 MG Oral Tablet; TAKE 1 TABLET TWICE D AILY. Quantity: 60 Refills: 0 Restasis 0.05 % Ophthalmic Emulsion; USE DIRECTED. Refills: 0 Norvasc 2.5 MG Oral Tablet; TAKE 1/2 TABLET DAILY. Refills: 0 Carbidopa-Levodopa 25-100 MG Oral Tablet; TAKE 1 TABLET 3 TI MES DAILY. Refills: 0 Procedures Procedures not documented Immunizations Immunizations not documented Family History Father Family history of malignant neoplasm of prostate (V16. 42) (Z80.42) Status: Active Family history of cardiac disorder (V17.49) (Z82.49) Status: Active Social History - Smoking Status Never smoker Plan of Treatment Planned Observations Planned Goals not documented Results No Known Results Results not documented Encounters Appointment; Vascular, Studies SC1 02-Jan-2015 11:30 Encounter Diagnosis: Problem not documented
--- NOTE | 2019-02-02 15:16 | XRay Report ---
XR chest 1V portable HISTORY: 83 years-old Female Chest Pain acute atypical chest pain COMPARISON: Chest radiograph 10/18/2018 TECHNIQUE: Portable AP view of the chest FINDINGS: Patient is rotated to the left. Cardiac silhouette is enlarged, unchanged. Calcification of the thora cic aortic arch. Paramediastinal interstitial coarsening redemonstrated with suggested emphysema. Sug gested small left pleural effusion with subsegmental left basilar opacities. No pneumothorax or overt pulmonary edema. Left subclavian pacer and IVC filter noted. Degenerative changes of the shoulders a nd spine. IMPRESSION: 1. Cardiomegaly without overt pulmonary edema. 2. Probable small left pleural effusion with subsegmental left basilar atelectasis. The above report was generated using voice recognition software. It may contain grammatical, syntax o r spelling errors. Electronically signed by: Michael Basilio M.D. 02/02/2019 3:15 PM
[2019-02-02 15:48] LABS: Basophils # (auto) 0.03 K/uL (0-0.2); Basophils % (auto) 0.4 %; Eosinophils # (auto) 0.13 K/uL (0-0.5); Eosinophils % (auto) 1.5 %; Hematocrit (blood only) 33.5 % (37-47); Hemoglobin 10.8 g/dL (12.0-16.0); Immature Granulocytes # (auto) 0.01 K/uL (0.00-0.02); Immature Granulocytes % (auto) 0.1 %; Lymphocytes # (auto) 2.17 K/uL (1.2-3.4); Lymphocytes % (auto) 25.7 %; Mean Corpuscular Hgb Conc 32.2 g/dL (32-36); Mean Corpuscular Volume 82.7 fL (80-100); Mean Platelet Volume 10.3 fL (7.4-10.4); Monocytes # (auto) 1.11 K/uL (0.11-0.59); Monocytes % (auto) 13.1 %; Neutrophils # (auto) 5.01 K/uL (1.4-6.5); Neutrophils % (auto) 59.2 %; Platelet Count 298 K/uL (130-400); RDW Coefficient of Variation 16.2 % (11.5-14.5); RDW Standard Deviation 49.5 fL (36.4-46.3); Red Blood Count 4.05 M/uL (4.2-5.4); White Blood Count 8.46 K/uL (4.8-10.8)
[2019-02-02 15:59] LABS: Partial Thromboplastin Ratio 0.9; Partial Thromboplastin Time 23.3 Seconds (21.0-31.0); Prothrombin Time 10.3 Seconds (9.0-12.0)
[2019-02-02 16:08] LABS: Alanine Aminotransferase 16 U/L (12-78); Albumin Level 3.2 gm/dl (3.4-5.0); Aspartate Aminotransferase 19 U/L (15-37); BUN Creatinine Ratio 15.5 (10-20); Blood Urea Nitrogen 13 mg/dl (7-18); Calcium 9.2 mg/dl (8.5-10.1); Carbon Dioxide 28 mmol/L (21-32); Chloride 108 mmol/L (98-107); Est GFR (African American) 75.1; Est GFR (Non-African American) 64.8; Glucose 75 mg/dl (70-99); Potassium 3.6 mmol/L (3.5-5.1); Sodium 141 mmol/L (136-145)
[2019-02-02 16:13] LABS: Albumin Globulin Ratio 0.7 (0.9-2); Alkaline Phosphatase 79 U/L (45-117); Bilirubin,Total 0.3 mg/dl (0.2-1); Globulin 4.7 gm/dl (2.5-4.0); Total Protein 7.9 gm/dl (6.4-8.2); Troponin I < 0.015 ng/ml (0-0.045)
[2019-02-02] MEDS ORDERED: ASPIRIN CHEW 324 MG PO STA (17:27)
--- NOTE | 2019-02-02 17:46 | History & Physical Report ---
Date of Service February 02, 2019 Assessment & Plan (1) Left-sided chest pain: Pt with hx CAD, ischemic cardiomyopathy, sick sinus syndrome s/p pacer, PAF, HTN, dyslipidemia presented with c/o L chest pain occurred this morning at 0300 with associated dizziness, nausea and self resolved in 1 minute. Since pt has been CP free. Denies SOB, palpitations, syncope. In ER vitals stable, no tachycardia or hypoxia. EKG without acute ST elevation, initial troponin negative CHEST PAIN R/O ACS. DDX: arrhythmia, GERD -Monitor Vitals -Repeat EKG in am -Will trend troponin -Echo -Pt intolerant to statin -Continue aspirin & beta shaji -Pacer interrogation. 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 Not on anticoagulation secondary to hx brain hemorrhage -Pacemaker interrogation -Continue metoprolol (6) History of recurrent deep vein thrombosis (DVT): S/P IVC filter DVT Prophylaxis -SCDs DNR/DNI as per discussion with pt Follows with Dr Analia Yates for routine care Pt was seen and care coordinated with Dr Pierre. See addendum History of Present Illness Chief Complaint: CP Primary Care Provider: Analia Yates, DO Pt is 83 y/o F with PMH CAD, ischemic cardiomyopathy, chronic LLL DVT s/p IVC filter, sick sinus syndrome as/P pacemaker, paroxysmal atrial fibrillation, HTN, dyslipidemia, h/o hemorrhagic pontine CVA, chronic back pain, chronic left leg pain presented to ER with complaint of chest pain. Patient states she woke up at 3 AM today with pain to left chest described as stabbing with associated dizziness and nausea and symptoms lasted approximately 1 minute and resolved. Patient also reports this morning had some posterior neck pain which she relates to her pillow being malaligned and has since improved throughout the day. Reports her chronic low back pain and leg pain is unchanged. States has had some increased urination, denies dysuria or hematuria. Denies fever/chills, diaphoresis, V/D/C, JARAMILLO, syncope, vision changes, neck pain, SOB, orthopnea, palpitations, cough, sore throat, choking, otalgia, rhinorrhea, abdominal pain, paresthesias, weakness, extremity weakness, extremity edema, rashes. Hx echo 09/2018: EF: 50-55%, inferior and posterior lateral wall akinesis, moderate to severe mitral regurgitation, moderate to severe tricuspid regurgitation, left atrium moderately dilated, right atrium mildly dilated History stress echo 2008 have non-ST elevation noted. Leads, Q waves noted inferiorly at rest. No symptoms are noted Allergies Allergy/AdvReac Type Severity Reaction Status Date / Time cephalexin Allergy Intermediate Hives Verified 02/02/19 14:29 codeine Allergy Unknown edema Verified 02/02/19 14:29 airway,rash & hives egg Allergy Unknown ALLERGY TO Verified 02/02/19 14:29 EGG WHITES ketorolac Allergy Unknown Unknown Verified 02/02/19 14:29 omeprazole Allergy Unknown unknown Verified 02/02/19 14:29 propoxyphene Allergy Unknown Unknown Verified 02/02/19 14:29 Sulfa (Sulfonamide Allergy Unknown Unknown Verified 02/02/19 14:29 Antibiotics) capsaicin AdvReac Severe HIGH BP Verified 02/02/19 14:29 diclofenac AdvReac Severe HIGH BP Verified 02/02/19 14:29 Diclopak AdvReac Severe HIGH BP Verified 03/09/18 20:00 isopropyl alcohol AdvReac Severe HIGH BP Verified 02/02/19 14:29 propylene glycol AdvReac Severe HIGH BP Verified 02/02/19 14:29 tizanidine AdvReac Intermediate DELIRIUM Verified 02/02/19 14:29 sucralfate AdvReac Unknown itching,n/v Verified 02/02/19 14:29 Home Medications Home Medications Medication Instructions Recorded Confirmed Type Restasis 2 drp OPB BID 08/08/18 02/02/19 History fluticasone propionate [Flonase 2 spray INTRANASAL DAILY PRN 08/08/18 02/02/19 History Allergy Relief] gabapentin [Neurontin] 200 mg PO TID 08/08/18 02/02/19 History metoprolol tartrate [Lopressor] 25 mg PO BID 08/08/18 02/02/19 History ondansetron HCl [Zofran] 4 mg PO TID PRN 08/08/18 02/02/19 History polyethylene glycol 3350 [Miralax] 17 g PO DAILY PRN 08/08/18 02/02/19 History aspirin 81 mg PO QAM 10/11/18 02/02/19 History Past Med/Surg History Medical History Ischemic cardiomyopathy (Chronic) Low back pain (Chronic) History of recurrent deep vein thrombosis (DVT) (Chronic) Sick sinus syndrome (Chronic) Chronic CHF (Chronic) Paroxysmal atrial fibrillation (Chronic) Complicated UTI (urinary tract infection) (Resolved) CAD (coronary artery disease) (Chronic) "left cx PCI 2003" Sinoatrial node dysfunction (Chronic) PAT (paroxysmal atrial tachycardia) (Chronic) 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" Pacemaker (Chronic) "with mass noted on lead in right ventricle" Chronic pain (Chronic) Left leg pain (Chronic) Surgical History S/P IVC filter (Chronic) History of repair of hiatal hernia (Chronic) H/O splenectomy (Chronic) History of tonsillectomy and adenoidectomy (Chronic) Family History Other Cancer Heart disease Social History Preferred Language: [place] Communication Ability: Effective Beliefs That Will Affect Care: None Current Living Situation: Alone Current Living Situation Comment: 24 hour care Feels Safe at Home: Yes Smoking Status: Never smoker Hx Alcohol Use: No Hx Substance Use: No Review of Systems Review of Systems: All systems reviewed & are unremarkable except as noted in HPI & below Physical Exam Physical Exam: General: no distress, thin elderly female Head: normocephalic, atraumatic Eyes: PERRL, EOM's intact, conjunctiva non-injected, anicteric ENT: normal inspection external ears, nose, mucous membranes moist Neck: supple, trachea midline Lungs: clear, no respiratory distress, no wheezing/rhonchi/rales CV: RRR, no murmur, no pretibial edema Abd: normal BS, soft, non-tender Back: +kyphosis Ext: no cyanosis, no calf tenderness Neuro: A&O x 3, no focal deficits noted, normal affect Skin: warm, dry Results & Data Vital Signs (Past 12 Hours) Vital Signs Temp Pulse Pulse Resp BP BP Pulse Ox 02/02/19 17:31 98 02/02/19 17:30 152/56 H 98 02/02/19 17:01 98 02/02/19 17:00 147/58 H 99 02/02/19 16:31 98 02/02/19 16:30 153/61 H 98 02/02/19 16:06 160/59 H 160/59 H 97 02/02/19 16:02 99 02/02/19 16:01 66 17 100 02/02/19 15:00 86 21 02/02/19 14:30 74 21 02/02/19 14:27 75 15 02/02/19 13:48 36.8 C 87 18 137/68 96 Laboratory Results Short CBC 02/02/19 Range/Units 15:40 WBC 8.46 (4.8-10.8) K/uL Hgb 10.8 L (12.0-16.0) g/dL Hct 33.5 L (37-47) % Plt Count 298 (130-400) K/uL BMP 02/02/19 15:40 Sodium 141 Potassium 3.6 Chloride 108 H Carbon Dioxide 28 BUN 13 Creatinine 0.83 Glucose 75 Calcium 9.2 Cardiac Enzymes 02/02/19 Range/Units 15:40 Troponin I < 0.015 (0-0.045) ng/ml Liver Function 02/02/19 Range/Units 15:40 Total Bilirubin 0.3 (0.2-1) mg/dl AST 19 (15-37) U/L ALT 16 (12-78) U/L Alkaline Phosphatase 79 (45-117) U/L Albumin 3.2 L (3.4-5.0) gm/dl Diagnostic Findings CXR: IMPRESSION: 1. Cardiomegaly without overt pulmonary edema. 2. Probable small left pleural effusion with subsegmental left basilar atelectasis. Supervising Physician Co-Signing Physician Notes Patient is an 83-year-old female with history of ischemic cardiomyopathy, coronary artery disease, sick sinus syndrome status post pacemaker, paroxysmal atrial fibrillation and other medical problems presents with history of sudden onset of chest pain which is left-sided, stabbing in nature, woke her up from sleep this morning. Chest pain only lasted for less than a minute which is associated with some dizziness and nausea. She also reports having increased urinary frequency but denies any hematuria, dysuria. Please review HPI for c omplete details of presentation. Initial troponins are negative. EKG did not show any signs of acute ischemia. Patient's last stress just is many years ago. Currently denies any chest pain while in ED. On exam patient is thin, frail, elderly, normocephalic atraumatic, lungs decreased breath sounds, no added sounds, S1-S2, no murmur, abdomen soft nontender, no pedal edema,+ kyphosis, left-sided weakness--left upper extremity> left lower extremity. Wheelchair- bound at baseline. Patient is admitted for management of Atypical chest pain rule out ACS. Patient refuses to have stress stress. Will trend cardiac enzymes, check echo for any new wall motion abnormalities. Continue aspirin and metoprolol. Patient has history of statin intolerance. Repeat EKG in the morning. Consider cardiology evaluation inpatient vs outpatient as needed. Will check urinalysis to rule out urinary tract infection. Agree with pacemaker interrogation. I personally reviewed the record. Patient is interviewed and examined at bedside. Patient's care is coordinated with Rochelle Leon. Please refer to the documentation above for details of patient's presentation and for discussion of other issues.
[2019-02-02] MEDS ORDERED: GABAPENTIN 100 MG CAP PO ONE (17:56)
[2019-02-02 18:29] LABS: Appearance Urine Clear (Clear); Bacteria Urine Automated Negative (Negative); Bilirubin Urine Negative (Negative); Blood Urine Negative (Negative); Color Urine Yellow; Epithelial Cell Urine Auto 20-30 /lpf (0-5); Glucose Urine UA Negative (Negative); Ketones Urine Negative (Negative); Leukocyte Esterase Urine Trace (Negative); Nitrite Urine Negative (Negative); Protein Urine Negative (Negative); RBC Urine Automated 0-4 /hpf (0-4); Specific Gravity Urine 1.012 (1.000-1.030); Urobilinogen Urine Negative (Negative); pH Urine 7.5 (4.5-7.5)
--- NOTE | 2019-02-02 18:36 | Emergency Department Note ---
Entered by Nadege Acevedo acting as a scribe for History of Present Illness General Chief complaint: Neck Injury/Pain Stated complaint: NECK PAIN,BACK & STOMCH PAIN Time Seen by Provider: 02/02/19 14:39 Source: patient Mode of arrival: ambulatory Limitations: no limitations History of Present Illness Onset (ago): day(s) 1 Location: neck, chest and back Pain Consistency: + other (worsening) Maximum Pain Intensity: 10 Quality: + stabbing and + other (lightheadedness) Exacerbated By: + other (standing up) Associated symptoms: + other (The patient complains of mid center back pain, left leg, and left arm. The patient denies hematochezia and melena. ); no shortness of breath The patient is an 83 year old female with a history of heart attack, stroke, DVT, cardiac catheterization, paroxysmal atrial fibrillation with RVR, T12 compression fracture, recurrent UTI, CAD, PAT, brain hemorrhage, pacemaker, a bdominal aortic aneurysm dissection, IVC filter, hiatal hernia repair, splenectomy, tonsillectomy, and adenoidectomy who presents to the ED with complaints of worsening neck pain that onset 1 day ago. The patient states that she woke up at 0300 today with a stabbing left sided chest pain by her pace maker. She notes that she feels lightheaded with this pain. She notes that when she stands up, she develops dizziness and abdominal pain. The patient complains of mid center back pain, left leg pain, and left arm pain. The patient denies trauma, hematochezia, shortness of breath, and melena. She states that she is normally in a wheelchair and cannot walk secondary to her stoke. She denies taking blood thinners. Home Medications Home Medications Medication Instructions Recorded Confirmed Type Restasis 2 drp OPB BID 08/08/18 02/02/19 History fluticasone propionate [Flonase 2 spray INTRANASAL DAILY PRN 08/08/18 02/02/19 History Allergy Relief] gabapentin [Neurontin] 200 mg PO TID 08/08/18 02/02/19 History metoprolol tartrate [Lopressor] 25 mg PO BID 08/08/18 02/02/19 History ondansetron HCl [Zofran] 4 mg PO TID PRN 08/08/18 02/02/19 History polyethylene glycol 3350 [Miralax] 17 g PO DAILY PRN 08/08/18 02/02/19 History aspirin 81 mg PO QAM 10/11/18 02/02/19 History Allergies Allergy/AdvReac Type Severity Reaction Status Date / Time cephalexin Allergy Intermediate Hives Verified 02/02/19 14:29 codeine Allergy Unknown edema Verified 02/02/19 14:29 airway,rash & hives egg Allergy Unknown ALLERGY TO Verified 02/02/19 14:29 EGG WHITES ketorolac Allergy Unknown Unknown Verified 02/02/19 14:29 omeprazole Allergy Unknown unknown Verified 02/02/19 14:29 propoxyphene Allergy Unknown Unknown Verified 02/02/19 14:29 Sulfa (Sulfonamide Allergy Unknown Unknown Verified 02/02/19 14:29 Antibiotics) capsaicin AdvReac Severe HIGH BP Verified 02/02/19 14:29 diclofenac AdvReac Severe HIGH BP Verified 02/02/19 14:29 Diclopak AdvReac Severe HIGH BP Verified 03/09/18 20:00 isopropyl alcohol AdvReac Severe HIGH BP Verified 02/02/19 14:29 propylene glycol AdvReac Severe HIGH BP Verified 02/02/19 14:29 tizanidine AdvReac Intermediate DELIRIUM Verified 02/02/19 14:29 sucralfate AdvReac Unknown itching,n/v Verified 02/02/19 14:29 Past Med/Surg History Medical History Ischemic cardiomyopathy (Chronic) Low back pain (Chronic) History of recurrent deep vein thrombosis (DVT) (Chronic) Sick sinus syndrome (Chronic) Chronic CHF (Chronic) Paroxysmal atrial fibrillation (Chronic) Complicated UTI (urinary tract infection) (Resolved) CAD (coronary artery disease) (Chronic) "left cx PCI 2003" Sinoatrial node dysfunction (Chronic) PAT (paroxysmal atrial tachycardia) (Chronic) 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" Pacemaker (Chronic) "with mass noted on lead in right ventricle" Chronic pain (Chronic) Left leg pain (Chronic) Surgical History S/P IVC filter (Chronic) History of repair of hiatal hernia (Chronic) H/O splenectomy (Chronic) History of tonsillectomy and adenoidectomy (Chronic) Family History Other Cancer Heart disease Social History Preferred Language: Japanese Communication Ability: Effective Beliefs That Will Affect Care: None Current Living Situation: Alone Current Living Situation Comment: 24 hour care Feels Safe at Home: Yes Smoking Status: Never smoker Hx Alcohol Use: No Hx Substance Use: No Review of Systems See HPI for pertinent positives & negatives. and A total of 10 systems reviewed and were otherwise negative Physical Exam Vital Signs Vital Signs - 24 hr 02/02/19 13:48 02/02/19 14:27 02/02/19 14:30 Temperature 36.8 C Temperature Source Oral Sepsis Recent Fever Within 48 Hours No Sepsis New/Unexplained Change in Mental Status No Sepsis Action Taken by Nursing No Action Required Pulse Rate 87 75 74 Pulse Rate [Finger] Pulse Rate from SpO2 Sensor Respiratory Rate 18 15 21 Respiratory Depth Blood Pressure 137/68 Blood Pressure [Right Arm] Blood Pressure Mean 91 Blood Pressure Mean [Right Arm] Blood Pressure Position Sitting Pulse Oximetry 96 Oxygen Delivery Method 02/02/19 15:00 02/02/19 16:01 02/02/19 16:02 Temperature Temperature Source Sepsis Recent Fever Within 48 Hours Sepsis New/Unexplained Change in Mental Status Sepsis Action Taken by Nursing Pulse Rate 86 Pulse Rate [Finger] 66 Pulse Rate from SpO2 Sensor 68 Respiratory Rate 21 17 Respiratory Depth Normal Blood Pressure Blood Pressure [Right Arm] Blood Pressure Mean Blood Pressure Mean [Right Arm] Blood Pressure Position Pulse Oximetry 100 99 Oxygen Delivery Method Room Air 02/02/19 16:06 02/02/19 16:30 02/02/19 16:31 Temperature Temperature Source Sepsis Recent Fever Within 48 Hours Sepsis New/Unexplained Change in Mental Status Sepsis Action Taken by Nursing Pulse Rate Pulse Rate [Finger] Pulse Rate from SpO2 Sensor 68 60 60 Respiratory Rate Respiratory Depth Blood Pressure 160/59 H 153/61 H Blood Pressure [Right Arm] 160/59 H Blood Pressure Mean 92 91 Blood Pressure Mean [Right Arm] 92 Blood Pressure Position Pulse Oximetry 97 98 98 Oxygen Delivery Method 02/02/19 17:00 02/02/19 17:01 02/02/19 17:30 Temperature Temperature Source Sepsis Recent Fever Within 48 Hours Sepsis New/Unexplained Change in Mental Status Sepsis Action Taken by Nursing Pulse Rate Pulse Rate [Finger] Pulse Rate from SpO2 Sensor 61 64 65 Respiratory Rate Respiratory Depth Blood Pressure 147/58 H 152/56 H Blood Pressure [Right Arm] Blood Pressure Mean 87 88 Blood Pressure Mean [Right Arm] Blood Pressure Position Pulse Oximetry 99 98 98 Oxygen Delivery Method 02/02/19 17:31 02/02/19 18:01 02/02/19 18:26 Temperature Temperature Source Sepsis Recent Fever Within 48 Hours Sepsis New/Unexplained Change in Mental Status Sepsis Action Taken by Nursing Pulse Rate 63 Pulse Rate [Finger] 71 Pulse Rate from SpO2 Sensor 65 Respiratory Rate 18 20 Respiratory Depth Blood Pressure 135/61 Blood Pressure [Right Arm] 144/115 H Blood Pressure Mean Blood Pressure Mean [Right Arm] 124 Blood Pressure Position Pulse Oximetry 98 97 98 Oxygen Delivery Method Room Air Room Air General: Chronically-ill appearing older female in no acute distress. HEENT: Normal cephalic atraumatic. Pupils are equal round and reactive to light. Extraocular movements are intact. Oropharynx is pink with moist mucous membranes. No swelling of the mouth lips or tongue. Neck: Supple with a midline trachea. No meningeal signs or stiffness, no JVD or bruits. No Stridor. Chest: Clear to auscultation bilaterally. No wheezes or rhonchi. No increased work of breathing. Heart: regular rate and rhythm. Abdomen: Soft nontender, nondistended without rebound guarding or rigidity. Extremities: No cyanosis clubbing or edema. No calf tenderness or asymmetry Spine/Back. Non tender to palpation. No CVA tenderness Skin: Good turgor without rashes. Neurologic exam: Cranial nerves two through 12 are intact. Motor and sensation are intact and symmetrical throughout. She is alert and oriented X3. Faulkner Scale: 15. Baseline weak and temor of the left arm and leg. Baseline Kyphosis. Course 1445: Past medical records reviewed. The patient was evaluated in room B03B. A complete history and physical examination was performed. 1552: The patient is resting comfortably. 1640: I reviewed the patient's case with Rochelle Clinton for Dr. Pierre. She will evaluate the patient for further management. Consultations Consultation #1: 1640: I reviewed the patient's case with Rochelle Clinton for Dr. Pierre. She will evaluate the patient for further management. Time: 16:40 Administered Medications Discontinued Medications Aspirin (Aspirin) 324 mg PO NOW STA Stop: 02/02/19 17:28 Last Admin: 02/02/19 17:45 Dose: 324 mg Documented by: [id number] Gabapentin (Neurontin) 200 mg PO NOW ONE Stop: 02/02/19 17:57 Last Admin: 02/02/19 18:18 Dose: 200 mg Documented by: [id number] Medical Decision Making Differential Diagnosis Differential diagnosis includes: Acute coronary syndrome, arrhythmia, PE, aortic pathology, infection, musculoskeletal. Medical Records Attestation: I reviewed the patient's medical records. Home Medications Current Medication List: was personally reviewed by me Laboratory Data Attestation: I reviewed the patient's lab results. Result diagrams: 02/02/19 15:40 02/02/19 15:40 Lab Results 02/02/19 02/02/19 02/02/19 Range/Units 15:40 15:40 15:40 WBC 8.46 (4.8-10.8) K/uL RBC 4.05 L (4.2-5.4) M/uL Hgb 10.8 L (12.0-16.0) g/dL Hct 33.5 L (37-47) % MCV 82.7 (80-100) fL MCH 26.7 (25-34) pg MCHC 32.2 (32-36) g/dL RDW Std Deviation 49.5 H (36.4-46.3) fL RDW Coeff of Barney 16.2 H (11.5-14.5) % Plt Count 298 (130-400) K/uL MPV 10.3 (7.4-10.4) fL Immature Gran % (Auto) 0.1 % Neut % (Auto) 59.2 % Lymph % (Auto) 25.7 % Isabela % (Auto) 13.1 % Eos % (Auto) 1.5 % Baso % (Auto) 0.4 % Immature Gran # (Auto) 0.01 (0.00-0.02) K/uL Neut # (Auto) 5.01 (1.4-6.5) K/uL Lymph # (Auto) 2.17 (1.2-3.4) K/uL Isabela # (Auto) 1.11 H (0.11-0.59) K/uL Eos # (Auto) 0.13 (0-0.5) K/uL Baso # (Auto) 0.03 (0-0.2) K/uL PT 10.3 (9.0-12.0) Seconds INR 1.0 (0.9-1.1) APTT 23.3 (21.0-31.0) Seconds PTT Ratio 0.9 Sodium 141 (136-145) mmol/L Potassium 3.6 (3.5-5.1) mmol/L Chloride 108 H (98-107) mmol/L Carbon Dioxide 28 (21-32) mmol/L Anion Gap 5.0 (3-11) BUN 13 (7-18) mg/dl Creatinine 0.83 (0.6-1.2) mg/dl Est Cr Clr Drug Dosing Not Reportable Est GFR ( Amer) 75.1 Est GFR (Non-Af Amer) 64.8 BUN/Creatinine Ratio 15.5 (10-20) Glucose 75 (70-99) mg/dl Calcium 9.2 (8.5-10.1) mg/dl Total Bilirubin 0.3 (0.2-1) mg/dl AST 19 (15-37) U/L ALT 16 (12-78) U/L Alkaline Phosphatase 79 (45-117) U/L Troponin I < 0.015 (0-0.045) ng/ml Total Protein 7.9 (6.4-8.2) gm/dl Albumin 3.2 L (3.4-5.0) gm/dl Globulin 4.7 H (2.5-4.0) gm/dl Albumin/Globulin Ratio 0.7 L (0.9-2) Lipase 81 (73-393) U/L Urine Color Urine Appearance (Clear) Urine pH (4.5-7.5) Ur Specific [place] (1.000-1.030) Urine Protein (Negative) Urine Glucose (UA) (Negative) Urine Ketones (Negative) Urine Blood (Negative) Urine Nitrite (Negative) Urine Bilirubin (Negative) Urine Urobilinogen (Negative) Ur Leukocyte Esterase (Negative) Urine WBC (Auto) (0-5) /hpf Urine RBC (Auto) (0-4) /hpf U Hyaline Cast (Auto) (0-5) /lpf U Epithel Cells (Auto) (0-5) /lpf Urine Bacteria (Auto) (Negative) 07/05/19 Range/Units 18:10 WBC (4.8-10.8) K/uL RBC (4.2-5.4) M/uL Hgb (12.0-16.0) g/dL Hct (37-47) % MCV (80-100) fL MCH (25-34) pg MCHC (32-36) g/dL RDW Std Deviation (36.4-46.3) fL RDW Coeff of Barney (11.5-14.5) % Plt Count (130-400) K/uL MPV (7.4-10.4) fL Immature Gran % (Auto) % Neut % (Auto) % Lymph % (Auto) % Isabela % (Auto) % Eos % (Auto) % Baso % (Auto) % Immature Gran # (Auto) (0.00-0.02) K/uL Neut # (Auto) (1.4-6.5) K/uL Lymph # (Auto) (1.2-3.4) K/uL Isabela # (Auto) (0.11-0.59) K/uL Eos # (Auto) (0-0.5) K/uL Baso # (Auto) (0-0.2) K/uL PT (9.0-12.0) Seconds INR (0.9-1.1) APTT (21.0-31.0) Seconds PTT Ratio Sodium (136-145) mmol/L Potassium (3.5-5.1) mmol/L Chloride (98-107) mmol/L Carbon Dioxide (21-32) mmol/L Anion Gap (3-11) BUN (7-18) mg/dl Creatinine (0.6-1.2) mg/dl Est Cr Clr Drug Dosing Est GFR ( Amer) Est GFR (Non-Af Amer) BUN/Creatinine Ratio (10-20) Glucose (70-99) mg/dl Calcium (8.5-10.1) mg/dl Total Bilirubin (0.2-1) mg/dl AST (15-37) U/L ALT (12-78) U/L Alkaline Phosphatase (45-117) U/L Troponin I (0-0.045) ng/ml Total Protein (6.4-8.2) gm/dl Albumin (3.4-5.0) gm/dl Globulin (2.5-4.0) gm/dl Albumin/Globulin Ratio (0.9-2) Lipase (73-393) U/L Urine Color Yellow Urine Appearance Clear (Clear) Urine pH 7.5 (4.5-7.5) Ur Specific [place] 1.012 (1.000-1.030) Urine Protein Negative (Negative) Urine Glucose (UA) Negative (Negative) Urine Ketones Negative (Negative) Urine Blood Negative (Negative) Urine Nitrite Negative (Negative) Urine Bilirubin Negative (Negative) Urine Urobilinogen Negative (Negative) Ur Leukocyte Esterase Trace H (Negative) Urine WBC (Auto) 1-5 (0-5) /hpf Urine RBC (Auto) 0-4 (0-4) /hpf U Hyaline Cast (Auto) 1-5 (0-5) /lpf U Epithel Cells (Auto) 20-30 H (0-5) /lpf Urine Bacteria (Auto) Negative (Negative) Imaging Data Radiologist's Impression: Radiology results as stated below per my review and the radiologist's interpretation: XR chest 1V portable HISTORY: 83 years-old Female Chest Pain acute atypical chest pain COMPARISON: Chest radiograph 10/18/2018 TECHNIQUE: Portable AP view of the chest FINDINGS: Patient is rotated to the left. Cardiac silhouette is enlarged, unchanged. Calcification of the thoracic aortic arch. Paramediastinal interstitial coarsening redemonstrated with suggested emphysema. Suggested small left pleural effusion with subsegmental left basilar opacities. No pneumothorax or overt pulmonary edema. Left subclavian pacer and IVC filter noted. Degenerative changes of the shoulders and spine. IMPRESSION: 1. Cardiomegaly without overt pulmonary edema. 2. Probable small left pleural effusion with subsegmental left basilar atelectasis. The above report was generated using voice recognition software. It may contain grammatical, syntax or spelling errors. Electronically signed by: Michael Basilio M.D. 02/02/2019 3:15 PM Dictated: 02/02/19 1513 Transcribed: 02/02/19 151 ECG Data Attestation: I personally reviewed and interpreted this ECG as follows: Indication: chest pain Rate (beats per minute): 98 Rhythm: other (atrial paced rhythm) Findings: no acute ischemic change and no ectopy Comparison ECG Date: from (10/26/2018) Change: the following changes noted (Paced rhythm has replaced a fib) Blood Pressure Blood Pressure Findings: Elevated blood pressure Blood Pressure Disposition: further management by hospitalist MDM Narrative This patient comes in as described above. 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 She had episode of chest pain on the left side last evening. It woke up from sleep she felt nauseated and lightheaded. She is feeling better in that regard. she has had some back pain which tends to be chronic as well. IV access established blood work was obtained she was placed on a senior oracle database developer. EKG does not suggest acute coronary syndrome or arrhythmia. Chest x-ray does not show any evidence to suggest acute congestive heart failure, pneumonia, or pneumothorax. Cardiac biomarkers are not elevated. She tells me she cannot have a CT of her chest as she does not react well to the dye. I do think she should be observed/admitted for inpatient treatment and evaluation for cardiac disease/acute coronary syndrome. Her heart score is elevated and this puts her at higher risk for cardiac disease. I have consulted the [facility] hospitalist to see her in the ER for these measures. Impression & Plan Left-sided chest pain, Low back pain Discharge Plan Visit Data Chief Complaint: Neck Injury/Pain Stated Complaint: NECK PAIN,BACK & STOMCH PAIN ED Provider: Dejuan Zabala Discharge Problem: Left-sided chest pain, Low back pain Patient Disposition: Being Evaluated by Hospitalist Discharge Instructions Interventions: ED Discharge Assessment Last Done: 02/02/19 18:26 Forms Stand Alone Forms: My [facility] [employer] Prescriptions Prescriptions: No Action polyethylene glycol 3350 [Miralax] 17 gram Powder In Packet 17 g PO DAILY PRN (Reason: Constipation) RF: 0 ondansetron HCl [Zofran] 4 mg tablet 4 mg PO TID PRN (Reason: Nausea) RF: 0 metoprolol tartrate [Lopressor] 50 mg tablet 25 mg PO BID RF: 0 gabapentin [Neurontin] 100 mg capsule 200 mg PO TID RF: 0 fluticasone propionate [Flonase Allergy Relief] 50 mcg/actuation [place],Suspension 2 spray INTRANASAL DAILY PRN (Reason: Allergy Symptoms) RF: 0 Restasis 0.05 % dropperette 2 drp OPB BID RF: 0 aspirin 81 mg Tablet,Delayed Release (Dr/Ec) 81 mg PO QAM RF: 0 Referrals Referrals: Analia Yates DO [Primary Care Provider] - Discharge Problem: Low back pain Qualifiers: Chronicity: unspecified Back pain laterality: midline Sciatica presence: without sciatica Qualified Code(s): M54.5 - Low back pain The scribe's documentation has been prepared under my direction and personally reviewed by me in its entirety. I confirm that the note above accurately reflects all work, treatment, procedures, and medical decision making performed by me.
[2019-02-02] MEDS ORDERED: FLUTICASONE PROPIONATE NA SPR 16 GM BTL NAE PRN (19:06)
[2019-02-02] MEDS ORDERED: NITROGLYCERIN SL 0.4 MG/TAB TAB SL PRN (19:06)
[2019-02-02] MEDS ORDERED: ACETAMINOPHEN 325 MG TAB PO PRN (19:06)
[2019-02-02] MEDS ORDERED: POLYETHYLENE (MIRALAX) 17 GM PACK PO PRN (19:06)
[2019-02-02] MEDS: GABAPENTIN 100 MG CAP PO SCH (21:30)
[2019-02-02] MEDS: METOPROLOL TARTRATE 25 MG TAB PO SCH (21:30)
[2019-02-03 03:14] LABS: Hematocrit (blood only) 29.7 % (37-47); Hemoglobin 9.5 g/dL (12.0-16.0); Mean Corpuscular Volume 81.1 fL (80-100); Mean Platelet Volume 9.9 fL (7.4-10.4); Platelet Count 261 K/uL (130-400); RDW Coefficient of Variation 16.1 % (11.5-14.5); RDW Standard Deviation 47.4 fL (36.4-46.3); Red Blood Count 3.66 M/uL (4.2-5.4); White Blood Count 7.58 K/uL (4.8-10.8)
[2019-02-03 03:29] LABS: BUN Creatinine Ratio 16.3 (10-20); Blood Urea Nitrogen 12 mg/dl (7-18); Calcium 8.7 mg/dl (8.5-10.1); Carbon Dioxide 31 mmol/L (21-32); Chloride 108 mmol/L (98-107); Est GFR (African American) 89.1; Est GFR (Non-African American) 76.9; Glucose 83 mg/dl (70-99); Potassium 4.1 mmol/L (3.5-5.1); Sodium 142 mmol/L (136-145)
[2019-02-03 03:33] LABS: Troponin I < 0.015 ng/ml (0-0.045)
[2019-02-03] MEDS ORDERED: ASPIRIN 81 MG ECTAB PO SCH (09:00)
[2019-02-03] MEDS: GABAPENTIN 100 MG CAP PO SCH ×2 (09:13→14:04)
[2019-02-03] MEDS: METOPROLOL TARTRATE 25 MG TAB PO SCH (09:13)
--- NOTE | 2019-02-03 12:05 | Hospitalist Progress Note ---
Date of Service February 03, 2019 Assessment & Plan (1) Left-sided chest pain: Pt with hx CAD, ischemic cardiomyopathy, sick sinus syndrome s/p pacer, PAF, HTN, dyslipidemia presented with c/o L chest pain occurred this morning at 0300 with associated dizziness, nausea and self resolved in 1 minute. Since pt has been CP free. Denies SOB, palpitations, syncope. CHEST PAIN R/O ACS. DDX: arrhythmia, GERD No more pain since admission Serial troponins and EKGs are unremarkable Echo report has been pending Pt intolerant to statin Continue aspirin & beta shaji Pacer interrogation-unremarkable. Pt reports does not want any stress test Denies any more chest pain and clinically stable Will be discharged this afternoon if the echo is unremarkable (2) Urinary frequency: Reports urinary frequency -Obtain UA- HEAD: No headache, dizziness, or head injury. 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 Not on anticoagulation secondary to hx brain hemorrhage -Pacemaker interrogation -Continue metoprolo -Rate is controlled l (6) History of recurrent deep vein thrombosis (DVT): S/P IVC filter DVT Prophylaxis -SCDs DNR/DNI as per discussion with pt Follows with Dr Analia Yates for routine care If they points unremarkable be discharged home this afternoon Subjective 02/03 The patient was seen and examined in medical telemetry unit in presence of the daughter She has hx of CAD, ischemic cardiomyopathy, sick sinus syndrome s/p pacer, PAF, HTN, dyslipidemia presented with c/o L chest pain with associated dizziness, nausea and self resolved in 1 minute. She denies any more chest pain and/or palpitation since admission Denies any other symptoms and wants to go home Review of Systems Review of Systems: All systems reviewed and are unremarkable except as noted. Constitutional: Denies any acute symptoms and does not look ill Physical Exam Physical Exam: No apparent distress at rest Constitutional: + thin; no acute distress Eyes: PERRL, conjunctivae normal, anicteric sclerae ENMT: external ear and nose normal, oropharynx normal Neck: trachea midline, no thyromegaly Respiratory: normal respiratory effort; no respiratory distress Auscultation: + diminished lung sounds (Minimally at the bases) Cardiovascular: Rate/Rhythm: + abnormal rate and + abnormal rhythm Gastrointestinal (Abdomen): Inspection/Auscultation: abdomen normal to inspection Percussion/Palpation: abdomen soft; abdomen nontender Lymphatic: no cervical or axillary lymphadenopathy Results & Data Vital Signs (Past 12 Hours) Vital Signs Temp Pulse Pulse Resp BP Pulse Ox 02/03/19 11:47 36.6 C 66 20 138/61 97 02/03/19 07:57 36.5 C 71 20 158/75 H 96 02/03/19 07:00 60 02/03/19 03:40 36.5 C 60 19 147/65 H 98 02/03/19 00:13 36.7 C 60 19 153/61 H 96 Laboratory Results Short CBC 02/02/19 02/03/19 Range/Units 15:40 02:56 WBC 8.46 7.58 (4.8-10.8) K/uL Hgb 10.8 L 9.5 L (12.0-16.0) g/dL Hct 33.5 L 29.7 L (37-47) % Plt Count 298 261 (130-400) K/uL BMP 02/02/19 02/03/19 15:40 02:56 Sodium 141 142 Potassium 3.6 4.1 Chloride 108 H 108 H Carbon Dioxide 28 31 BUN 13 12 Creatinine 0.83 0.72 Glucose 75 83 Calcium 9.2 8.7 Cardiac Enzymes 02/02/19 02/02/19 02/03/19 Range/Units 15:40 20:51 02:56 Troponin I < 0.015 < 0.015 < 0.015 (0-0.045) ng/ml Liver Function 02/02/19 Range/Units 15:40 Total Bilirubin 0.3 (0.2-1) mg/dl AST 19 (15-37) U/L ALT 16 (12-78) U/L Alkaline Phosphatase 79 (45-117) U/L Albumin 3.2 L (3.4-5.0) gm/dl Urine 02/02/19 Range/Units 18:10 Urine Color Yellow Urine Appearance Clear (Clear) Urine pH 7.5 (4.5-7.5) Ur Specific [place] 1.012 (1.000-1.030) Urine Protein Negative (Negative) Urine Glucose (UA) Negative (Negative) Medications Administered Current Inpatient Medications Acetaminophen (Tylenol) 650 mg PO Q4H PRN PRN Reason: Pain or Fever Stop: 03/04/19 19:05 Aspirin (Ecotrin Ectab) 81 mg PO QAM [facility] Stop: 03/05/19 08:59 Last Admin: 02/03/19 09:13 Dose: 81 mg Documented by: Fluticasone Propionate (Flonase) 2 sprays DORIS DAILY PRN PRN Reason: Allergy Symptoms Stop: 03/04/19 19:05 Gabapentin (Neurontin) 200 mg PO TID [facility] Stop: 03/04/19 20:59 Last Admin: 02/03/19 09:13 Dose: 200 mg Documented by: Metoprolol Tartrate (Lopressor) 25 mg PO BID [facility] Stop: 03/04/19 20:59 Last Admin: 02/03/19 09:13 Dose: 25 mg Documented by: Miscellaneous (Order Awaiting Action) 1 ea N/A QS [facility] Stop: 03/05/19 00:00 Last Admin: 02/03/19 09:17 Dose: Not Given Documented by: Nitroglycerin (Nitrostat) 0.4 mg SL UD PRN PRN Reason: Chest Pain Stop: 03/04/19 19:05 Polyethylene Glycol (Miralax Powder Packet) 17 gm PO DAILY PRN PRN Reason: Constipation Stop: 03/04/19 19:05
--- NOTE | 2019-02-03 18:15 | Discharge Summary ---
Date of Service February 03, 2019 Admission HPI Per Admitting Provider Pt is 83 y/o F with PMH CAD, ischemic cardiomyopathy, chronic LLL DVT s/p IVC filter, sick sinus syndrome as/P pacemaker, paroxysmal atrial fibrillation, HTN, dyslipidemia, h/o hemorrhagic pontine CVA, chronic back pain, chronic left leg pain presented to ER with complaint of chest pain. Patient states she woke up at 3 AM today with pain to left chest described as stabbing with associated dizziness and nausea and symptoms lasted approximately 1 minute and resolved. Patient also reports this morning had some posterior neck pain which she relates to her pillow being malaligned and has since improved throughout the day. Reports her chronic low back pain and leg pain is unchanged. States has had some increased urination, denies dysuria or hematuria. Denies fever/chills, diaphoresis, V/D/C, [place], syncope, vision changes, neck pain, SOB, orthopnea, palpitations, cough, sore throat, choking, otalgia, rhinorrhea, abdominal pain, paresthesias, weakness, extremity weakness, extremity edema, rashes. Hx echo 09/2018: EF: 50-55%, inferior and posterior lateral wall akinesis, moderate to severe mitral regurgitation, moderate to severe tricuspid regurgitation, left atrium moderately dilated, right atrium mildly dilated History stress echo 2008 have non-ST elevation noted. Leads, Q waves noted inferiorly at rest. No symptoms are noted Admission Exam Per Admitting Provider Physical Exam: General: no distress, thin elderly female Head: normocephalic, atraumatic Eyes: PERRL, EOM's intact, conjunctiva non-injected, anicteric ENT: normal inspection external ears, nose, mucous membranes moist Neck: supple, trachea midline Lungs: clear, no respiratory distress, no wheezing/rhonchi/rales CV: RRR, no murmur, no pretibial edema Abd: normal BS, soft, non-tender Back: +kyphosis Ext: no cyanosis, no calf tenderness Neuro: A&O x 3, no focal deficits noted, normal affect Skin: warm, dry Principal Diagnosis Chest pain-no ACS with unchanged echo, chronic CHF, PAF not on any anticoagulation Discharge Exam Constitutional + thin; no acute distress Eyes PERRL, conjunctivae normal, anicteric sclerae ENMT external ear and nose normal, oropharynx normal Neck trachea midline, no thyromegaly Respiratory normal respiratory effort; no respiratory distress Auscultation: + diminished lung sounds (Minimally at the bases) Cardiovascular Rate/Rhythm: + abnormal rate and + abnormal rhythm Gastrointestinal (Abdomen) Inspection/Auscultation: abdomen normal to inspection Percussion/Palpation: abdomen soft; abdomen nontender Lymphatic no cervical or axillary lymphadenopathy Discharge Data Allergies Allergy/AdvReac Type Severity Reaction Status Date / Time cephalexin Allergy Intermediate Hives Verified 02/02/19 14:29 codeine Allergy Unknown edema Verified 02/02/19 14:29 airway,rash & hives egg Allergy Unknown ALLERGY TO Verified 02/02/19 14:29 EGG WHITES ketorolac Allergy Unknown Unknown Verified 02/02/19 14:29 omeprazole Allergy Unknown unknown Verified 02/02/19 14:29 propoxyphene Allergy Unknown Unknown Verified 02/02/19 14:29 Sulfa (Sulfonamide Allergy Unknown Unknown Verified 02/02/19 14:29 Antibiotics) capsaicin AdvReac Severe HIGH BP Verified 02/02/19 14:29 diclofenac AdvReac Severe HIGH BP Verified 02/02/19 14:29 Diclopak AdvReac Severe HIGH BP Verified 03/09/18 20:00 isopropyl alcohol AdvReac Severe HIGH BP Verified 02/02/19 14:29 propylene glycol AdvReac Severe HIGH BP Verified 02/02/19 14:29 tizanidine AdvReac Intermediate DELIRIUM Verified 02/02/19 14:29 sucralfate AdvReac Unknown itching,n/v Verified 02/02/19 14:29 Consultations 02/02/19 16:42 ED Decision to Admit Stat Hospital Course (1) Left-sided chest pain: Pt with hx CAD, ischemic cardiomyopathy, sick sinus syndrome s/p pacer, PAF, HTN, dyslipidemia presented with c/o L chest pain occurred this morning at 0300 with associated dizziness, nausea and self resolved in 1 minute. Since pt has been CP free. Denies SOB, palpitations, syncope. CHEST PAIN R/O ACS. DDX: arrhythmia, GERD No more pain since admission Serial troponins and EKGs are unremarkable Echo report has been pending Pt intolerant to statin Continue aspirin & beta shaji Pacer interrogation-unremarkable. Pt reports does not want any stress test Denies any more chest pain and clinically stable Will be discharged this afternoon if the echo is unremarkable (2) Urinary frequency: Reports urinary frequency -Obtain UA- HEAD: No headache, dizziness, or head injury. 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 Not on anticoagulation secondary to hx brain hemorrhage -Pacemaker interrogation -Continue metoprolo -Rate is controlled l (6) History of recurrent deep vein thrombosis (DVT): S/P IVC filter DVT Prophylaxis -SCDs DNR/DNI as per discussion with pt Follows with Dr Analia Yates for routine care If they points unremarkable be discharged home this afternoon Total Time Total Time Spent Total Time Spent (In Minutes): 35 minutes Total Time Includes: Examination of the Patient, Discharge Planning, Medication Reconciliation and Communication With Other Providers Discharge Plan Discharge Items Patient Disposition: Home - Self-Care Reason For Visit: CP Discharge Diagnosis: Chest pain-no ACS with unchanged echo, chronic CHF, PAF not on any anticoagulation Condition: Good Discharge Goals: Decrease discomfort, Improve function and Increase independence Activity: Resume your previous activity Non-emergency contact: Primary Care Provider Call non-emergency contact if: you have any medication questions and your symptoms worsen Follow-up/Referrals: Analia Yates, [Primary Care Provider] - (Your doctor's office will call with appointment) Diet: Heart Healthy and Low Sodium (2gm) Addtl Provider Instructions: Please take precaution to avoid falls. No changes in her medications. Prescriptions: Continued polyethylene glycol 3350 [Miralax] 17 gram Powder In Packet 17 g PO DAILY PRN (Reason: Constipation) RF: 0 ondansetron HCl [Zofran] 4 mg tablet 4 mg PO TID PRN (Reason: Nausea) RF: 0 metoprolol tartrate [Lopressor] 50 mg tablet 25 mg PO BID RF: 0 gabapentin [Neurontin] 100 mg capsule 200 mg PO TID RF: 0 fluticasone propionate [Flonase Allergy Relief] 50 mcg/actuation [place],Suspension 2 spray INTRANASAL DAILY PRN (Reason: Allergy Symptoms) RF: 0 Restasis 0.05 % dropperette 2 drp OPB BID RF: 0 aspirin 81 mg Tablet,Delayed Release (Dr/Ec) 81 mg PO QAM RF: 0 Stand-Alone Forms: [facility] Discharge Orders: Discharge Order (Routine); Ordered 02/03/19 Ordered By: Armida Tam Admission Data Admit Date/Time: 02/02/19 17:32 Attending Provider: Armida Tam Admit Provider: Rich Pierre Primary Care Provider: Analia Yates Other Providers: Rich Pierre ; Natasha Aguirre Service: Telemetry Medical Other Interventions: Discharge Summary Assessment (RN) Last Done: 02/03/19 13:58 DC Date/Time DO NOT enter until pt leaves facility: 02/03/19 15:20
== END 2019-02-03 15:20 | disposition home or self-care (01) ==
LOC: ED 13:44 → 2N 13:44 → SUATTDRO 17:32 → 2N 18:26

== ENCOUNTER 2021-02-18 14:19 | Inpatient (IN) ==
--- NOTE | 2021-02-18 14:22 | Emergency Department Note ---
Impression & Plan Stroke-like symptoms, Facial droop, Left-sided weakness ED Provider Note NAME: KAYLENE ARORA AGE: 85 SEX: F : 1935 ARRIVES VIA: Ambulance INFORMANT: Patient, ED PROVIDER(S): Tam Camarena MD Chief Complaint: Stroke alert, left-sided facial droop, speech difficulty HPI: Patient does present from home due to concern for left-sided facial droop and associated difficulty with speech. This began around 1:40 PM. No recent falls or trauma. Patient does take baby aspirin but no other blood thinning medications. Code stroke alert was called in the field after discussing the case with EMS who states that she does have a prior history of CVA with chronic left-sided deficits but that the left-sided droop and slurred speech are new. Patient does have a known history of DVT and A. fib with a history of hemorrhagic pontine CVA. Patient denies any current pain. ROS: See HPI for pertinent positives and negatives. A total of 10 systems were reviewed and otherwise negative. Past medical history: See below Surgical history: See below Social history: See below Physical Exam: GENERAL: Wearing a mask, right-sided gaze. EYE EXAM: Normal conjunctiva. PERRL, no anisocoria and EOM's grossly intact w/o pain. NECK: Supple, no nuchal rigidity, no adenopathy, non-tender. No signs of meningismus. LUNGS: Clear to auscultation. Normal chest wall mechanics. HEART: NSR, no MRG. ABDOMEN: Abdomen soft, non-tender, normo-active bowel sounds, no masses, no rebound or guarding. BACK: No CVA TTP. SKIN: No rashes and no bruising. UPPER EXTREMITIES: Upper extremities are grossly normal. LOWER EXTREMITIES: Grossly normal, no edema. NEURO EXAM: Awake and alert, oriented to person and birthday, follows basic commands, left lower extremity and left upper extremity hemiparesis, rightward gaze, difficulty with closing left eye. Differential diagnoses: Infection, dehydration, metabolic abnormality, hypo/hype rglycemia, electrolyte disturbance, anemia, hypoxia, cardiac sources, intracerebral event, toxicologic, neurologic, as well as other pathologies. Course: Patient was seen and evaluated the bedside. Full history physical exam was performed. EKG interpreted by nd Sinus, first-degree AV block, rate of 81, prolonged MN, normal QRS, normal axis, ST depressions V3 to V5. Imaging Studies: See below Cardiac monitoring: An order was placed for continuous cardiac monitoring. The monitor shows a rate of 75 with sinus rhythm. MDM: Patient did have blood work completed along with CT head and CT angio of his head and neck. Did speak with Dr. Paige her total stroke neurologist and were pending the findings of the CT scans. Given the patient's prior history of hemorrhagic CVA not a TPA candidate at this time. The patient was noted to have a distal right M2 occlusion. I did reinitiate the discussion with Dr. Hill. Given the M2 occlusion I did rediscuss the matter with Dr. Hill who asked that I clarify whether or not this was a new or an old clot finding given her prior history of left-sided hemiparesis and CVA in the past. I did speak with the on-call radiologist Dr. Salazar who stated that we do not have any priors for comparison. The patient does have an NIH of 5. I did repage the telestroke neurologist Dr. Hill to discuss the patient's case a third time. Patient is a normal white count H&H and platelet count. Coags unremarkable. EKG does not show any obvious signs of arrhythmia. I did speak with the on-call transfer center as well as Dr. Hill again along with the interventional radiologist Dr. Stoddard. After discussing the patient's presentation and findings he stated that this patient would not have greater benefit than risk to proceed with any sort of intervention given the location and prior symptoms. I did speak with the on-call hospitalist Rochelle Granda PA-C and the patient was admitted by Dr. Pierre. Past Med/Surg History Medical History (Updated 02/18/21 @ 19:17 by Tam Camarena MD) 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 CAD (coronary artery disease) "left cx PCI 2003" Chronic CHF Chronic pain Complicated UTI (urinary tract infection) History of recurrent deep vein thrombosis (DVT) Ischemic cardiomyopathy Left leg DVT Left leg pain Low back pain Pacemaker "with mass noted on lead in right ventricle" Paroxysmal atrial fibrillation PAT (paroxysmal atrial tachycardia) Sick sinus syndrome Sinoatrial node dysfunction Surgical History H/O splenectomy History of repair of hiatal hernia History of tonsillectomy and adenoidectomy S/P IVC filter Family History Other Cancer Heart disease Social History Smoking Status: Never smoker Hx Alcohol Use: No Hx Substance Use: No Preferred Language: Romanian Communication Ability: Effective 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 Beliefs That Will Affect Care: None Current Living Situation: Alone Current Living Situation Comment: 24 hour care Feels Safe at Home: Yes Assistive Devices: Wheelchair Allergies Allergies Allergy/AdvReac Type Severity Reaction Status Date / Time cephalexin Allergy Intermediate Hives Verified 02/18/21 15:49 codeine Allergy Unknown edema Verified 02/18/21 15:49 airway,rash & hives egg Allergy Unknown ALLERGY TO Verified 02/18/21 15:49 EGG WHITES ketorolac Allergy Unknown Unknown Verified 02/18/21 15:49 omeprazole Allergy Unknown unknown Verified 02/18/21 15:49 propoxyphene Allergy Unknown Unknown Verified 02/18/21 15:49 Sulfa (Sulfonamide Allergy Unknown Unknown Verified 02/18/21 15:49 Antibiotics) capsaicin AdvReac Severe HIGH BP Verified 02/18/21 15:49 diclofenac AdvReac Severe HIGH BP Verified 02/18/21 15:50 Diclopak AdvReac Severe HIGH BP Verified 03/09/18 20:00 isopropyl alcohol AdvReac Severe HIGH BP Verified 02/18/21 15:50 propylene glycol AdvReac Severe HIGH BP Verified 02/18/21 15:50 tizanidine AdvReac Intermediate DELIRIUM Verified 02/18/21 15:50 sucralfate AdvReac Unknown itching,n/v Verified 02/18/21 15:50 Home Meds Home Medications Medication Instructions Recorded Confirmed cyclosporine 0.05 % eye drops in a 2 drp OPB BID 08/08/18 02/18/21 dropperette (Restasis) fluticasone propionate 50 2 spray INTRANASAL DAILY PRN 08/08/18 02/18/21 mcg/actuation nasal spray,suspension (Flonase Allergy Relief) gabapentin 100 mg capsule 200 mg PO TID 08/08/18 02/18/21 (Neurontin) metoprolol tartrate 50 mg tablet 25 mg PO BID 08/08/18 02/18/21 (Lopressor) polyethylene glycol 3350 17 gram 17 g PO DAILY PRN 08/08/18 02/18/21 oral powder packet (Miralax) aspirin 81 mg tablet,delayed 81 mg PO QAM 10/11/18 02/18/21 release ondansetron 4 mg disintegrating 4 mg PO Q8H PRN 03/21/20 02/18/21 tablet Results & Data (ED) Vital Signs Vital Signs - 24 hr 02/18/21 14:34 02/18/21 14:41 02/18/21 15:00 Temperature 36.7 C Temperature Source Oral Pulse Rate 96 H 71 68 Pulse Rate from SpO2 Sensor 97 H 69 Respiratory Rate 23 22 16 Respiratory Effort / Characteristics Non-Labored Spontaneous Respiratory Depth Normal Respiratory Pattern Regular Blood Pressure 179/93 H 159/69 H Blood Pressure Mean 121 99 Pulse Oximetry 91 92 93 Oxygen Delivery Method Room Air Sepsis Recent Fever Within 48 Hours No Sepsis New/Unexplained Change in Mental Status N/A Sepsis Action Taken by Nursing No Action Required 02/18/21 15:30 02/18/21 16:00 02/18/21 16:31 Temperature Temperature Source Pulse Rate 96 H 79 78 Pulse Rate from SpO2 Sensor 96 H 79 78 Respiratory Rate 23 18 17 Respiratory Effort / Characteristics Respiratory Depth Respiratory Pattern Blood Pressure 195/104 H 178/86 H Blood Pressure Mean 134 116 Pulse Oximetry 95 93 94 Oxygen Delivery Method Sepsis Recent Fever Within 48 Hours Sepsis New/Unexplained Change in Mental Status Sepsis Action Taken by Nursing 02/18/21 17:00 02/18/21 17:30 02/18/21 18:00 Temperature Temperature Source Pulse Rate 84 94 H 92 H Pulse Rate from SpO2 Sensor 85 94 H 92 H Respiratory Rate 16 20 17 Respiratory Effort / Characteristics Respiratory Depth Respiratory Pattern Blood Pressure 182/97 H 195/94 H 127/100 Blood Pressure Mean 125 127 109 Pulse Oximetry 91 94 93 Oxygen Delivery Method Sepsis Recent Fever Within 48 Hours Sepsis New/Unexplained Change in Mental Status Sepsis Action Taken by Nursing 02/18/21 18:30 Temperature Temperature Source Pulse Rate 82 Pulse Rate from SpO2 Sensor 83 Respiratory Rate 17 Respiratory Effort / Characteristics Respiratory Depth Respiratory Pattern Blood Pressure 184/86 H Blood Pressure Mean 118 Pulse Oximetry 95 Oxygen Delivery Method Sepsis Recent Fever Within 48 Hours Sepsis New/Unexplained Change in Mental Status Sepsis Action Taken by Nursing Laboratory Data Result diagrams: 02/18/21 14:43 02/18/21 14:43 Lab Results 02/18/21 02/18/21 02/18/21 Range/Units 14:43 14:43 14:43 WBC 10.35 (4.8-10.8) K/uL RBC 4.26 (4.2-5.4) M/uL Hgb 12.6 (12.0-16.0) g/dL Hct 38.8 (37-47) % MCV 91.1 (80-100) fL MCH 29.6 (25-34) pg MCHC 32.5 (32-36) g/dL RDW Std Deviation 52.8 H (36.4-46.3) fL RDW Coeff of Barney 15.8 H (11.5-14.5) % Plt Count 262 (130-400) K/uL MPV 11.1 H (7.4-10.4) fL Immature Gran % (Auto) 0.2 % Neut % (Auto) 39.9 % Lymph % (Auto) 44.7 % Sullivan % (Auto) 12.8 % Eos % (Auto) 2.0 % Baso % (Auto) 0.4 % Neut # (Auto) 4.13 (1.4-6.5) K/uL Lymph # (Auto) 4.63 H (1.2-3.4) K/uL Sullivan # (Auto) 1.32 H (0.11-0.59) K/uL Eos # (Auto) 0.21 (0-0.5) K/uL Baso # (Auto) 0.04 (0-0.2) K/uL Immature Gran # (Auto) 0.02 (0.00-0.02) K/uL PT 11.0 (9.0-12.0) Seconds INR 1.1 (0.9-1.1) APTT 22.5 (21.0-31.0) Seconds PTT Ratio 0.9 Sodium 135 L (136-145) mmol/L Potassium 3.8 (3.5-5.1) mmol/L Chloride 104 (98-107) mmol/L Carbon Dioxide 26 (21-32) mmol/L Anion Gap 5.0 (3-11) BUN 9 (7-18) mg/dl Creatinine 0.85 (0.6-1.2) mg/dl Est Cr Clr Drug Dosing Not Reportable Est GFR ( Amer) 71.9 ml/min Est GFR (Non-Af Amer) 62.0 ml/min BUN/Creatinine Ratio 11.1 (10-20) Glucose 105 H (70-99) mg/dl Calcium 8.6 (8.5-10.1) mg/dl Magnesium 2.5 H (1.8-2.4) mg/dl Total Bilirubin 0.6 (0.2-1) mg/dl AST 20 (15-37) U/L ALT 13 (12-78) U/L Alkaline Phosphatase 79 (45-117) U/L Troponin I < 0.015 (0-0.045) ng/ml Total Protein 6.8 (6.4-8.2) gm/dl Albumin 2.7 L (3.4-5.0) gm/dl Globulin 4.1 H (2.5-4.0) gm/dl Albumin/Globulin Ratio 0.7 L (0.9-2) Urine Color Urine Appearance (Clear) Urine pH (4.5-7.5) Ur Specific [place] (1.000-1.030) Urine Protein (Negative) Urine Glucose (UA) (Negative) Urine Ketones (Negative) Urine Blood (Negative) Urine Nitrite (Negative) Urine Bilirubin (Negative) Urine Urobilinogen (Negative) Ur Leukocyte Esterase (Negative) Urine WBC (Auto) (0-5) /hpf Urine RBC (Auto) (0-4) /hpf U Hyaline Cast (Auto) (0-5) /lpf U Epithel Cells (Auto) (0-5) /lpf Urine Bacteria (Auto) (Negative) COVID-19 Eval Order SARS-CoV-2 (PCR) (Negative) 02/18/21 02/18/21 02/18/21 Range/Units 15:40 15:40 18:30 WBC (4.8-10.8) K/uL RBC (4.2-5.4) M/uL Hgb (12.0-16.0) g/dL Hct (37-47) % MCV (80-100) fL MCH (25-34) pg MCHC (32-36) g/dL RDW Std Deviation (36.4-46.3) fL RDW Coeff of Barney (11.5-14.5) % Plt Count (130-400) K/uL MPV (7.4-10.4) fL Immature Gran % (Auto) % Neut % (Auto) % Lymph % (Auto) % Sullivan % (Auto) % Eos % (Auto) % Baso % (Auto) % Neut # (Auto) (1.4-6.5) K/uL Lymph # (Auto) (1.2-3.4) K/uL Sullivan # (Auto) (0.11-0.59) K/uL Eos # (Auto) (0-0.5) K/uL Baso # (Auto) (0-0.2) K/uL Immature Gran # (Auto) (0.00-0.02) K/uL PT (9.0-12.0) Seconds INR (0.9-1.1) APTT (21.0-31.0) Seconds PTT Ratio Sodium (136-145) mmol/L Potassium (3.5-5.1) mmol/L Chloride (98-107) mmol/L Carbon Dioxide (21-32) mmol/L Anion Gap (3-11) BUN (7-18) mg/dl Creatinine (0.6-1.2) mg/dl Est Cr Clr Drug Dosing Est GFR ( Amer) ml/min Est GFR (Non-Af Amer) ml/min BUN/Creatinine Ratio (10-20) Glucose (70-99) mg/dl Calcium (8.5-10.1) mg/dl Magnesium (1.8-2.4) mg/dl Total Bilirubin (0.2-1) mg/dl AST (15-37) U/L ALT (12-78) U/L Alkaline Phosphatase (45-117) U/L Troponin I (0-0.045) ng/ml Total Protein (6.4-8.2) gm/dl Albumin (3.4-5.0) gm/dl Globulin (2.5-4.0) gm/dl Albumin/Globulin Ratio (0.9-2) Urine Color Yellow Urine Appearance Clear (Clear) Urine pH 8.0 H (4.5-7.5) Ur Specific [place] 1.025 (1.000-1.030) Urine Protein Negative (Negative) Urine Glucose (UA) Negative (Negative) Urine Ketones Trace H (Negative) Urine Blood Trace H (Negative) Urine Nitrite Negative (Negative) Urine Bilirubin Negative (Negative) Urine Urobilinogen Negative (Negative) Ur Leukocyte Esterase Negative (Negative) Urine WBC (Auto) 1-5 (0-5) /hpf Urine RBC (Auto) 0-4 (0-4) /hpf U Hyaline Cast (Auto) 0 (0-5) /lpf U Epithel Cells (Auto) 0-5 (0-5) /lpf Urine Bacteria (Auto) Negative (Negative) COVID-19 Eval Order Covid19 at [facility] SARS-CoV-2 (PCR) NEGATIVE (Negative) Administered Medications Discontinued Medications Sodium Chloride (Nss 1000ml) 500 mls @ 999 mls/hr IV .Q31M ONE Stop: 02/18/21 16:17 Last Infusion: 02/18/21 18:01 Dose: 0 mls/hr Documented by: [id number] Admin: 02/18/21 16:35 Dose: 999 mls/hr Documented by: [id number] Ioversol (Optiray 320 125ml) 116 ml IV ONCE ONE Stop: 02/18/21 14:26 Last Admin: 02/18/21 14:26 Dose: 116 ml Documented by: [id number] Ondansetron HCl (Ondansetron Inj 2 Mg/Ml 2 Ml Vial) 4 mg IV NOW STA Stop: 02/18/21 15:48 Last Admin: 02/18/21 16:35 Dose: 4 mg Documented by: [id number] Imaging Data Radiologist's Impression: Head CT 02/18/21 14:19 CT SCAN OF THE BRAIN WITHOUT IV CONTRAST CLINICAL HISTORY: Strokelike symptoms. COMPARISON STUDY: CT of the brain dated 10/27/2015. TECHNIQUE: Unenhanced axial CT scan of the brain is performed from the vertex to the skull base. A dose lowering technique was utilized adhering to the principles of ALARA. FINDINGS: Brain parenchyma: There are age-related involutional changes noting mild to moderate subcortical and periventricular microangiopathic change. There is no hemorrhage, mass effect, or evidence of acute territorial ischemia by CT criteria. Adair-white matter differentiation is preserved. Mineralization is noted in the basal ganglia. No extra-axial fluid collection is seen. Ventricles, sulci, cisterns: Prominent secondary to involutional change. Intracranial vasculature: There is atherosclerotic calcification of the carolyn nous carotid and vertebral arteries. Calvarium: Unremarkable. Sinuses and mastoids: The paranasal sinuses are clear. The mastoid air cells are well pneumatized. Orbits: The bony orbits are grossly intact. There is a right ocular lens implant. IMPRESSION: There is no hemorrhage, mass effect, or evidence of acute territorial ischemia by CT criteria. ACT 112: Negative or not required by law. Electronically signed by: Woodrow Salazar M.D. 02/18/2021 2:36 PM Head CTA 02/18/21 14:19 CT ANGIOGRAM OF THE BRAIN; CT ANGIOGRAM OF THE NECK CLINICAL HISTORY: Strokelike symptoms. COMPARISON STUDY: Unenhanced CT of the brain performed concurrently on 02/18/2021. TECHNIQUE: Following the IV administration of 116 of Optiray 320, CT angiogram of the head and neck was performed from the aortic arch to the vertex. Images are reviewed in the axial, sagittal, and coronal planes. 3-D MIPS images are created and assessed. IV contrast was administered without complication. All measurements were calculated based on NASCET criteria. A dose lowering technique was utilized adhering to the principles of ALARA. CT DOSE: 950.86 mGy.cm FINDINGS: Brain parenchyma: There is age-related involutional change noting [id number] subcortical and periventricular microangiopathic disease. There is no hemorrhage, mass effect, or evidence of acute territorial ischemia by CT criteria. There is no evidence of enhancing mass lesion on the angiogram phase images. The ventricles, sulci, and cisterns are prominent secondary to involutional change. Adair-white matter differentiation is preserved. No extra- axial fluid collection is seen. Thoracic aorta: There is atherosclerotic calcification of the thoracic aorta. Visualized portions of the thoracic aorta are normal in caliber. The aortic arch demonstrates standard 3-vessel anatomy. Right carotid arterial system: The right common carotid artery is widely patent, as are the right internal and external carotid arteries. Mild plaque is seen in the carotid bulb. Left carotid arterial system: The left common carotid artery is widely patent, a s are the left internal and external carotid arteries. Calcified plaque is noted in the carotid bulb. Vertebral arteries: The vertebral arteries are widely patent bilaterally and codominant. Subclavian arteries: Widely patent bilaterally. Intracranial vasculature: There is atherosclerotic calcification of the cavernous carotid and vertebral arteries. The internal carotid arteries are patent at the skull base, as are the anterior cerebral arteries. The left middle cerebral artery is widely patent. The proximal portions of the right middle cerebral artery are clear. There is focal occlusion of the distal M2 segment of the right middle cerebral artery. This is best seen on axial image #144 and coronal image #38. The vertebrobasilar system and posterior cerebral arteries are widely patent. The vertebral arteries are codominant. 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 This is best seen on image #126. Jugular veins: Patent bilaterally. Dural sinuses: Patent. Lung apices: Partially visualized upper lobe lung parenchyma appears clear. Soft tissues: The visualized pharyngeal soft tissues are normal in appearance noting angiographic phase technique. The oropharyngeal airway appears widely patent. The salivary and thyroid glands are normal in appearance. No cervical lymphadenopathy is seen. Skeletal structures: The skeletal structures are osteopenic. The calvarium appears intact. The cervical spine is maintained noting multilevel spondylosis. No lytic or blastic lesion is seen. Orbits: The bony orbits are intact. Orbital contents are normal as visualized noting a right ocular lens implant. Sinuses and mastoids: The paranasal sinuses are clear. The mastoid air cells are well pneumatized. IMPRESSION: 1. There is no evidence of hemorrhage, mass effect, or acute territorial ischemia noting angiographic phase technique. 2. There is focal vessel cut-off/occlusion of the distal M2 segment of the right middle cerebral artery. 3. 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 4. Unremarkable CT angiogram of the neck. ACT 112: Negative or not required by law. Electronically signed by: Woodrow Salazar M.D. 02/18/2021 2:52 PM Neck CTA 02/18/21 14:19 CT ANGIOGRAM OF THE BRAIN; CT ANGIOGRAM OF THE NECK CLINICAL HISTORY: Strokelike symptoms. COMPARISON STUDY: Unenhanced CT of the brain performed concurrently on 02/18/2021. TECHNIQUE: Following the IV administration of 116 of Optiray 320, CT angiogram of the head and neck was performed from the aortic arch to the vertex. Images are reviewed in the axial, sagittal, and coronal planes. 3-D MIPS images are created and assessed. IV contrast was administered without complication. All measurements were calculated based on NASCET criteria. A dose lowering technique was utilized adhering to the principles of ALARA. CT DOSE: 950.86 mGy.cm FINDINGS: Brain parenchyma: There is age-related involutional change noting [id number] subcortical and periventricular microangiopathic disease. There is no hemorrhage, mass effect, or evidence of acute territorial ischemia by CT criteria. There is no evidence of enhancing mass lesion on the angiogram phase images. The ventricles, sulci, and cisterns are prominent secondary to involutional change. Adair-white matter differentiation is preserved. No extra- axial fluid collection is seen. Thoracic aorta: There is atherosclerotic calcification of the thoracic aorta. Visualized portions of the thoracic aorta are normal in caliber. The aortic arch demonstrates standard 3-vessel anatomy. Right carotid arterial system: The right common carotid artery is widely patent, as are the right internal and external carotid arteries. Mild plaque is seen in the carotid bulb. Left carotid arterial system: The left common carotid artery is widely patent, as are the left internal and external carotid arteries. Calcified plaque is noted in the carotid bulb. Vertebral arteries: The vertebral arteries are widely patent bilaterally and codominant. Subclavian arteries: Widely patent bilaterally. Intracranial vasculature: There is atherosclerotic calcification of the cavernous carotid and vertebral arteries. The internal carotid arteries are p atent at the skull base, as are the anterior cerebral arteries. The left middle cerebral artery is widely patent. The proximal portions of the right middle cerebral artery are clear. There is focal occlusion of the distal M2 segment of the right middle cerebral artery. This is best seen on axial image #144 and coronal image #38. The vertebrobasilar system and posterior cerebral arteries are widely patent. The vertebral arteries are codominant. 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 This is best seen on image #126. Jugular veins: Patent bilaterally. Dural sinuses: Patent. Lung apices: Partially visualized upper lobe lung parenchyma appears clear. Soft tissues: The visualized pharyngeal soft tissues are normal in appearance noting angiographic phase technique. The oropharyngeal airway appears widely patent. The salivary and thyroid glands are normal in appearance. No cervical lymphadenopathy is seen. Skeletal structures: The skeletal structures are osteopenic. The calvarium appears intact. The cervical spine is maintained noting multilevel spondylosis. No lytic or blastic lesion is seen. Orbits: The bony orbits are intact. Orbital contents are normal as visualized noting a right ocular lens implant. Sinuses and mastoids: The paranasal sinuses are clear. The mastoid air cells are well pneumatized. IMPRESSION: 1. There is no evidence of hemorrhage, mass effect, or acute territorial ischemia noting angiographic phase technique. 2. There is focal vessel cut-off/occlusion of the distal M2 segment of the right middle cerebral artery. 3. 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 4. Unremarkable CT angiogram of the neck. ACT 112: Negative or not required by law. Electronically signed by: Woodrow Salazar M.D. 02/18/2021 2:52 PM Discharge Plan Visit Data Chief Complaint: Stroke Alert Stated Complaint: Stroke Alert ED Provider: Tam Camarena Discharge Problem: Stroke-like symptoms, Facial droop, Left-sided weakness Forms Stand Alone Forms: [facility] Prescriptions Prescriptions: No Action polyethylene glycol 3350 [Miralax] 17 gram Powder In Packet 17 g PO DAILY PRN (Reason: Constipation) RF: 0 metoprolol tartrate [Lopressor] 50 mg tablet 25 mg PO BID RF: 0 gabapentin [Neurontin] 100 mg capsule 200 mg PO TID RF: 0 fluticasone propionate [Flonase Allergy Relief] 50 mcg/actuation Jessie,Suspension 2 spray INTRANASAL DAILY PRN (Reason: Allergy Symptoms) RF: 0 Restasis 0.05 % dropperette 2 drp OPB BID RF: 0 aspirin 81 mg Tablet,Delayed Release (Dr/Ec) 81 mg PO QAM RF: 0 ondansetron 4 mg tablet,disintegrating 4 mg PO Q8H PRN (Reason: Nausea And Vomiting) RF: 0 Referrals Referrals: Analia Yates DO [Primary Care Provider] -
[2021-02-18] MEDS ORDERED: OPTIRAY 320 125ml IV ONE (14:25)
--- NOTE | 2021-02-18 14:37 | CT Scan Report ---
CT SCAN OF THE BRAIN WITHOUT IV CONTRAST CLINICAL HISTORY: Strokelike symptoms. COMPARISON STUDY: CT of the brain dated 10/27/2015. TECHNIQUE: Unenhanced axial CT scan of the brain is performed from the vertex to the skull base. A do se lowering technique was utilized adhering to the principles of ALARA. FINDINGS: Brain parenchyma: There are age-related involutional changes noting mild to moderate subcortical and periventricular microangiopathic change. There is no hemorrhage, mass effect, or evidence of acute t erritorial ischemia by CT criteria. [place]air-white matter differentiation is preserved. Mineralization is noted in the basal ganglia. No extra-axial fluid collection is seen. Ventricles, sulci, cisterns: Prominent secondary to involutional change. Intracranial vasculature: There is atherosclerotic calcification of the cavernous carotid and vertebr al arteries. Calvarium: Unremarkable. Sinuses and mastoids: The paranasal sinuses are clear. The mastoid air cells are well pneumatized. Orbits: The bony orbits are grossly intact. There is a right ocular lens implant. IMPRESSION: There is no hemorrhage, mass effect, or evidence of acute territorial ischemia by CT kim ortiz. ACT 112: Negative or not required by law. Electronically signed by: Woodrow Salazar M.D. 02/18/2021 2:36 PM
--- NOTE | 2021-02-18 14:53 | CT Scan Report ---
CT ANGIOGRAM OF THE BRAIN; CT ANGIOGRAM OF THE NECK CLINICAL HISTORY: Strokelike symptoms. COMPARISON STUDY: Unenhanced CT of the brain performed concurrently on 02/18/2021. TECHNIQUE: Following the IV administration of 116 of Optiray 320, CT angiogram of the head and neck w as performed from the aortic arch to the vertex. Images are reviewed in the axial, sagittal, and kareem nal planes. 3-D MIPS images are created and assessed. IV contrast was administered without complicati on. All measurements were calculated based on NASCET criteria. A dose lowering technique was utilize d adhering to the principles of ALARA. CT DOSE: 950.86 mGy.cm FINDINGS: Brain parenchyma: There is age-related involutional change noting [id number] subcortical and pe riventricular microangiopathic disease. There is no hemorrhage, mass effect, or evidence of acute ter ritorial ischemia by CT criteria. There is no evidence of enhancing mass lesion on the angiogram phas e images. The ventricles, sulci, and cisterns are prominent secondary to involutional change. Adair-wh ite matter differentiation is preserved. No extra-axial fluid collection is seen. Thoracic aorta: There is atherosclerotic calcification of the thoracic aorta. Visualized portions of the thoracic aorta are normal in caliber. The aortic arch demonstrates standard 3-vessel anatomy. Right carotid arterial system: The right common carotid artery is widely patent, as are the right int ernal and external carotid arteries. Mild plaque is seen in the carotid bulb. Left carotid arterial system: The left common carotid artery is widely patent, as are the left journalism intern al and external carotid arteries. Calcified plaque is noted in the carotid bulb. Vertebral arteries: The vertebral arteries are widely patent bilaterally and codominant. Subclavian arteries: Widely patent bilaterally. Intracranial vasculature: There is atherosclerotic calcification of the cavernous carotid and vertebr al arteries. The internal carotid arteries are patent at the skull base, as are the anterior cerebral arteries. The left middle cerebral artery is widely patent. The proximal portions of the right middl e cerebral artery are clear. 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 This is best seen on axial image #144 and coronal image #38. The vertebrobasilar syst em and posterior cerebral arteries are widely patent. The vertebral arteries are codominant. 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 This is best seen on image #126. Jugular veins: Patent bilaterally. Dural sinuses: Patent. Lung apices: Partially visualized upper lobe lung parenchyma appears clear. Soft tissues: The visualized pharyngeal soft tissues are normal in appearance noting angiographic pha se technique. The oropharyngeal airway appears widely patent. The salivary and thyroid glands are nor mal in appearance. No cervical lymphadenopathy is seen. Skeletal structures: The skeletal structures are osteopenic. The calvarium appears intact. The cervic al spine is maintained noting multilevel spondylosis. No lytic or blastic lesion is seen. Orbits: The bony orbits are intact. Orbital contents are normal as visualized noting a right ocular l ens implant. Sinuses and mastoids: The paranasal sinuses are clear. The mastoid air cells are well pneumatized. IMPRESSION: 1. There is no evidence of hemorrhage, mass effect, or acute territorial ischemia noting angiographic phase technique. 2. There is focal vessel cut-off/occlusion of the distal M2 segment of the right middle cerebral tayla ry. 3. 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 4. Unremarkable CT angiogram of the neck. ACT 112: Negative or not required by law. Electronically signed by: Woodrow Salazar M.D. 02/18/2021 2:52 PM
[2021-02-18 14:55] LABS: Basophils # (auto) 0.04 K/uL (0-0.2); Basophils % (auto) 0.4 %; Eosinophils # (auto) 0.21 K/uL (0-0.5); Hematocrit (blood only) 38.8 % (37-47); Hemoglobin 12.6 g/dL (12.0-16.0); Immature Granulocytes # (auto) 0.02 K/uL (0.00-0.02); Immature Granulocytes % (auto) 0.2 %; Lymphocytes # (auto) 4.63 K/uL (1.2-3.4); Lymphocytes % (auto) 44.7 %; Mean Corpuscular Hemoglobin 29.6 pg (25-34); Mean Corpuscular Hgb Conc 32.5 g/dL (32-36); Mean Corpuscular Volume 91.1 fL (80-100); Mean Platelet Volume 11.1 fL (7.4-10.4); Monocytes # (auto) 1.32 K/uL (0.11-0.59); Monocytes % (auto) 12.8 %; Neutrophils # (auto) 4.13 K/uL (1.4-6.5); Neutrophils % (auto) 39.9 %; Platelet Count 262 K/uL (130-400); RDW Coefficient of Variation 15.8 % (11.5-14.5); RDW Standard Deviation 52.8 fL (36.4-46.3); Red Blood Count 4.26 M/uL (4.2-5.4); White Blood Count 10.35 K/uL (4.8-10.8)
[2021-02-18 15:10] LABS: INR 1.1 (0.9-1.1); Partial Thromboplastin Ratio 0.9; Partial Thromboplastin Time 22.5 Seconds (21.0-31.0)
[2021-02-18 15:23] LABS: Alanine Aminotransferase 13 U/L (12-78); Albumin Level 2.7 gm/dl (3.4-5.0); Aspartate Aminotransferase 20 U/L (15-37); BUN Creatinine Ratio 11.1 (10-20); Blood Urea Nitrogen 9 mg/dl (7-18); Calcium 8.6 mg/dl (8.5-10.1); Carbon Dioxide 26 mmol/L (21-32); Chloride 104 mmol/L (98-107); Est GFR (African American) 71.9 ml/min; Glucose 105 mg/dl (70-99); Magnesium 2.5 mg/dl (1.8-2.4); Potassium 3.8 mmol/L (3.5-5.1); Sodium 135 mmol/L (136-145)
[2021-02-18 15:29] LABS: Albumin Globulin Ratio 0.7 (0.9-2); Alkaline Phosphatase 79 U/L (45-117); Bilirubin,Total 0.6 mg/dl (0.2-1); Globulin 4.1 gm/dl (2.5-4.0); Total Protein 6.8 gm/dl (6.4-8.2); Troponin I < 0.015 ng/ml (0-0.045)
[2021-02-18] MEDS ORDERED: SODIUM CHLORIDE 0.9% 1000ML 500 ML IV ONE (15:47)
[2021-02-18] MEDS ORDERED: ONDANSETRON INJ 2 MG/ML 2 ML VIAL IV STA ×2 (15:47→22:28)
--- NOTE | 2021-02-18 16:32 | Electrocardiogram Report ---
Test Reason : Blood Pressure : / mmHG Vent. Rate : 081 BPM Atrial Rate : 081 BPM P-R Int : 208 ms QRS Dur : 086 ms QT Int : 402 ms P-R-T Axes : 088 -03 014 degrees QTc Int : 466 ms Sinus rhythm with Premature supraventricular complexes Nonspecific ST and T wave abnormality Abnormal ECG When compared with ECG of 21-MAR-2020 18:50, Premature supraventricular complexes are now Present Non-specific change in ST segment in Anterior leads Nonspecific T wave abnormality now evident in Inferior leads Confirmed by Sivakumar Ibanez ([id number]) on 02/18/2021 4:32:00 PM Referred By: REFERRED SELF Confirmed By:Sivakumar Ibanez
--- NOTE | 2021-02-18 16:57 | History & Physical Report ---
Date of Service February 18, 2021 Assessment & Plan (1) Stroke-like symptoms: Plan: H/O hemorrhagic pontine CVA History left hemiparesis Pt is 85 y/o F with PMH CAD, ischemic cardiomyopathy, chronic LLL DVT s/p IVC filter, sick sinus syndrome s/p pacemaker, paroxysmal atrial fibrillation, HTN, dyslipidemia, h/o hemorrhagic pontine CVA, left hemiparesis, chronic left leg pain, chronic back pain presented to ER with c/o slurred speech, left facial droop around 1:40pm today. In ER pt afebrile, P: 71, R: 22, BP: 179/93, 92% on room air. No significant electrolyte abnormality CT head: no hemorrhage, mass effect, or evidence of acute territorial ischemia by CT criteria. CTA head/neck: 1. There is no evidence of hemorrhage, mass effect, or acute territorial ischemia noting angiographic phase technique. 2. There is focal vessel cut-off/occlusion of the distal M2 segment of the right middle cerebral artery. 3. 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 4. Unremarkable CT angiogram of the neck. In ER [facility] tele stroke was contacted who recommended no TPA, tele consult with interventional radiologist recommended no other intervention results of head CT: Tele to monitor for arrhythmias Trend troponin Lipid, A1c in a.m. Patient with pacemaker, need to see if compatible for MRI brain Echo Aspiration precautions PT/OT consult Will give 300mg aspirin rectally for now as patient with facial droop and fails dysphagia screen Will hold on adding Plavix at this time. Patient's family reports patient not on Plavix in the past secondary to history of hemorrhagic stroke Neurology consult Hold chronic gabapentin for chronic left leg pain secondary to npo with facial droop until evaluated by speech therapy Abnormal EKG Patient denies chest pain, shortness of breath EKG: Sinus rhythm, nonspecific ST changes Initial troponin negative Trend troponin Echo pending EKG a.m. 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 Not on anticoagulation secondary to hx brain hemorrhage Pacemaker interrogation Continue metoprolol History of recurrent deep vein thrombosis: S/P IVC filter DVT Prophylaxis SCDs DNR/DNI as per discussion with pt Follows with Dr Aanlia Yates for routine care Pt was seen and care coordinated with Dr Pierre. See addendum History of Present Illness Chief Complaint: Slurred speech Primary Care Provider: Analia Yates, Pt is 85 y/o F with PMH CAD, ischemic cardiomyopathy, chronic LLL DVT s/p IVC filter, sick sinus syndrome s/p pacemaker, paroxysmal atrial fibrillation, HTN, dyslipidemia, h/o hemorrhagic pontine CVA, left hemiparesis, chronic left leg pain, chronic back pain presented to ER with c/o slurred speech. History obtained from patient and patient's daughters who are with her today. Reports patient wheelchair-bound. Today they were at a yard sale, around 1:40 PM when they noted patient all of a sudden was slumped over in wheelchair. They noted patient had slurred speech, seemed to have left facial droop and was looking off to the right. EMS was called and patient was transported to ER. Patient denies headache currently. Patient's daughter reports yesterday she complained of some discomfort above right eye and some intermittent dizziness. States patient with constipation and took MiraLAX yesterday. Denies fever/chills, diaphoresis, N/V/D, syncope, fall, vision changes, neck pain, CP, SOB, orthopnea, palpitations, cough, sore throat, choking, otalgia, rhinorrhea, abdominal pain, paresthesias, extremity edema, rashes, urinary symptoms. In ER patient with noted left facial drooping, rightward gaze. CTA head:occlusion of the distal M2 segment of the right middle cerebral artery. [facility] tele stroke was contacted who recommended no TPA, tele consult with int erventional radiologist recommended no other intervention. Allergies Allergy/AdvReac Type Severity Reaction Status Date / Time cephalexin Allergy Intermediate Hives Verified 02/18/21 15:49 codeine Allergy Unknown edema Verified 02/18/21 15:49 airway,rash & hives egg Allergy Unknown ALLERGY TO Verified 02/18/21 15:49 EGG WHITES ketorolac Allergy Unknown Unknown Verified 02/18/21 15:49 omeprazole Allergy Unknown unknown Verified 02/18/21 15:49 propoxyphene Allergy Unknown Unknown Verified 02/18/21 15:49 Sulfa (Sulfonamide Allergy Unknown Unknown Verified 02/18/21 15:49 Antibiotics) capsaicin AdvReac Severe HIGH BP Verified 02/18/21 15:49 diclofenac AdvReac Severe HIGH BP Verified 02/18/21 15:50 Diclopak AdvReac Severe HIGH BP Verified 03/09/18 20:00 isopropyl alcohol AdvReac Severe HIGH BP Verified 02/18/21 15:50 propylene glycol AdvReac Severe HIGH BP Verified 02/18/21 15:50 tizanidine AdvReac Intermediate DELIRIUM Verified 02/18/21 15:50 sucralfate AdvReac Unknown itching,n/v Verified 02/18/21 15:50 Home Medications Medication Instructions Recorded Confirmed Type cyclosporine 0.05 % eye drops in a 2 drp OPB BID 08/08/18 02/18/21 History dropperette (Restasis) fluticasone propionate 50 2 spray INTRANASAL DAILY PRN 08/08/18 02/18/21 History mcg/actuation nasal spray,suspension (Flonase Allergy Relief) gabapentin 100 mg capsule 200 mg PO TID 08/08/18 02/18/21 History (Neurontin) metoprolol tartrate 50 mg tablet 25 mg PO BID 08/08/18 02/18/21 History (Lopressor) polyethylene glycol 3350 17 gram 17 g PO DAILY PRN 08/08/18 02/18/21 History oral powder packet (Miralax) aspirin 81 mg tablet,delayed 81 mg PO QAM 10/11/18 02/18/21 History release ondansetron 4 mg disintegrating 4 mg PO Q8H PRN 03/21/20 02/18/21 History tablet Past Med/Surg History Medical History 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 CAD (coronary artery disease) "left cx PCI 2003" Chronic CHF Chronic pain Complicated UTI (urinary tract infection) History of recurrent deep vein thrombosis (DVT) Ischemic cardiomyopathy Left leg DVT Left leg pain Low back pain Pacemaker "with mass noted on lead in right ventricle" Paroxysmal atrial fibrillation PAT (paroxysmal atrial tachycardia) Sick sinus syndrome Sinoatrial node dysfunction Surgical History H/O splenectomy History of repair of hiatal hernia History of tonsillectomy and adenoidectomy S/P IVC filter Family History Other Cancer Heart disease Social History Smoking Status: Never smoker Hx Alcohol Use: No Hx Substance Use: No Preferred Language: American Communication Ability: Effective Data Services Developer Required: No Beliefs That Will Affect Care: None Current Living Situation: Alone Current Living Situation Comment: 24 hour care Feels Safe at Home: Yes Assistive Devices: Wheelchair Review of Systems Review of Systems: All systems reviewed & are unremarkable except as noted in HPI & below Physical Exam Physical Exam: General: no distress, thin, frail appearing elderly female Head: normocephalic, atraumatic Eyes: conjunctiva non-injected, anicteric ENT: normal inspection external ears, nose, mucous membranes moist Neck: supple, trachea midline Lungs: clear, no respiratory distress, no wheezing/rhonchi/rales CV: RRR, no pretibial edema Abd: normal BS, soft, non-tender Ext: no cyanosis, no calf tenderness Neuro: A&O x 3, normal affect. Pt with rightward gaze, mid and left visual field deficit, unable to fully test EOMs, +facial drooping, slight slurred speech, pt reports less sensation left side of face, unable to raise eyebrows, close eyes or stick out tongue for this provider. hearing grossly intact, right shoulder shrug intact Skin: warm, dry Results & Data Results & Data ([facility]) Vital Signs (Past 12 Hours) Vital Signs Temp Pulse Resp BP Pulse Ox 02/18/21 14:41 36.7 C 71 22 179/93 H 92 Laboratory Results Short CBC 02/18/21 Range/Units 14:43 WBC 10.35 (4.8-10.8) K/uL Hgb 12.6 (12.0-16.0) g/dL Hct 38.8 (37-47) % Plt Count 262 (130-400) K/uL BMP 02/18/21 14:43 Sodium 135 L Potassium 3.8 Chloride 104 Carbon Dioxide 26 BUN 9 Creatinine 0.85 Glucose 105 H Calcium 8.6 Cardiac Enzymes 02/18/21 Range/Units 14:43 Troponin I < 0.015 (0-0.045) ng/ml Liver Function 02/18/21 Range/Units 14:43 Total Bilirubin 0.6 (0.2-1) mg/dl AST 20 (15-37) U/L ALT 13 (12-78) U/L Alkaline Phosphatase 79 (45-117) U/L Albumin 2.7 L (3.4-5.0) gm/dl Urine 02/18/21 Range/Units 18:30 Urine Color Yellow Urine Appearance Clear (Clear) Urine pH 8.0 H (4.5-7.5) Ur Specific [place] 1.025 (1.000-1.030) Urine Protein Negative (Negative) Urine Glucose (UA) Negative (Negative) Diagnostic Findings Head CT 02/18/21 14:19 CT SCAN OF THE BRAIN WITHOUT IV CONTRAST CLINICAL HISTORY: Strokelike symptoms. COMPARISON STUDY: CT of the brain dated 10/27/2015. TECHNIQUE: Unenhanced axial CT scan of the brain is performed from the vertex to the skull base. A dose lowering technique was utilized adhering to the principles of ALARA. FINDINGS: Brain parenchyma: There are age-related involutional changes noting mild to moderate subcortical and periventricular microangiopathic change. There is no hemorrhage, mass effect, or evidence of acute territorial ischemia by CT criteria. [place]-white matter differentiation is preserved. Mineralization is noted in the basal ganglia. No extra-axial fluid collection is seen. Ventricles, sulci, cisterns: Prominent secondary to involutional change. Intracranial vasculature: There is atherosclerotic calcification of the cavernous carotid and vertebral arteries. Calvarium: Unremarkable. Sinuses and mastoids: The paranasal sinuses are clear. The mastoid air cells are well pneumatized. Orbits: The bony orbits are grossly intact. There is a right ocular lens implant. IMPRESSION: There is no hemorrhage, mass effect, or evidence of acute territorial ischemia by CT criteria. ACT 112: Negative or not required by law. Electronically signed by: Woodrow Salazar M.D. 02/18/2021 2:36 PM Head CTA 02/18/21 14:19 CT ANGIOGRAM OF THE BRAIN; CT ANGIOGRAM OF THE NECK CLINICAL HISTORY: Strokelike symptoms. COMPARISON STUDY: Unenhanced CT of the brain performed concurrently on 02/18/2021. TECHNIQUE: Following the IV administration of 116 of Optiray 320, CT angiogram of the head and neck was performed from the aortic arch to the vertex. Images are reviewed in the axial, sagittal, and coronal planes. 3-D MIPS images are created and assessed. IV contrast was administered without complication. All measurements were calculated based on NASCET criteria. A dose lowering technique was utilized adhering to the principles of ALARA. CT DOSE: 950.86 mGy.cm FINDINGS: Brain parenchyma: There is age-related involutional change noting ramf-oc-mdrpimgy subcortical and periventricular microangiopathic disease. There is no hemorrhage, mass effect, or evidence of acute territorial ischemia by CT criteria. There is no evidence of enhancing mass lesion on the angiogram phase images. The ventricles, sulci, and cisterns are prominent secondary to involu tional change. [place]-white matter differentiation is preserved. No extra-axial fluid collection is seen. Thoracic aorta: There is atherosclerotic calcification of the thoracic aorta. Visualized portions of the thoracic aorta are normal in caliber. The aortic arch demonstrates standard 3-vessel anatomy. Right carotid arterial system: The right common carotid artery is widely patent, as are the right internal and external carotid arteries. Mild plaque is seen in the carotid bulb. Left carotid arterial system: The left common carotid artery is widely patent, as are the left internal and external carotid arteries. Calcified plaque is noted in the carotid bulb. Vertebral arteries: The vertebral arteries are widely patent bilaterally and codominant. Subclavian arteries: Widely patent bilaterally. Intracranial vasculature: There is atherosclerotic calcification of the cavernous carotid and vertebral arteries. The internal carotid arteries are patent at the skull base, as are the anterior cerebral arteries. The left middle cerebral artery is widely patent. The proximal portions of the right middle cerebral artery are clear. There is focal occlusion of the distal M2 segment of the right middle cerebral artery. This is best seen on axial image #144 and coronal image #38. The vertebrobasilar system and posterior cerebral arteries are widely patent. The vertebral arteries are codominant. 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 This is best seen on image #126. Jugular veins: Patent bilaterally. Dural sinuses: Patent. Lung apices: Partially visualized upper lobe lung parenchyma appears clear. Soft tissues: The visualized pharyngeal soft tissues are normal in appearance noting angiographic phase technique. The oropharyngeal airway appears widely patent. The salivary and thyroid glands are normal in appearance. No cervical lymphadenopathy is seen. Skeletal structures: The skeletal structures are osteopenic. The calvarium ap pears intact. The cervical spine is maintained noting multilevel spondylosis. No lytic or blastic lesion is seen. Orbits: The bony orbits are intact. Orbital contents are normal as visualized noting a right ocular lens implant. Sinuses and mastoids: The paranasal sinuses are clear. The mastoid air cells are well pneumatized. IMPRESSION: 1. There is no evidence of hemorrhage, mass effect, or acute territorial ischemia noting angiographic phase technique. 2. There is focal vessel cut-off/occlusion of the distal M2 segment of the right middle cerebral artery. 3. 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 4. Unremarkable CT angiogram of the neck. ACT 112: Negative or not required by law. Electronically signed by: Woodrow Salazar M.D. 02/18/2021 2:52 PM Neck CTA 02/18/21 14:19 CT ANGIOGRAM OF THE BRAIN; CT ANGIOGRAM OF THE NECK CLINICAL HISTORY: Strokelike symptoms. COMPARISON STUDY: Unenhanced CT of the brain performed concurrently on 02/18/2021. TECHNIQUE: Following the IV administration of 116 of Optiray 320, CT angiogram of the head and neck was performed from the aortic arch to the vertex. Images are reviewed in the axial, sagittal, and coronal planes. 3-D MIPS images are created and assessed. IV contrast was administered without complication. All measurements were calculated based on NASCET criteria. A dose lowering technique was utilized adhering to the principles of ALARA. CT DOSE: 950.86 mGy.cm FINDINGS: Brain parenchyma: There is age-related involutional change noting m [id number] subcortical and periventricular microangiopathic disease. There is no hemorrhage, mass effect, or evidence of acute territorial ischemia by CT criteria. There is no evidence of enhancing mass lesion on the angiogram phase images. The ventricles, sulci, and cisterns are prominent secondary to involutional change. [place]-white matter differentiation is preserved. No extra- axial fluid collection is seen. Thoracic aorta: There is atherosclerotic calcification of the thoracic aorta. Visualized portions of the thoracic aorta are normal in caliber. The aortic arch demonstrates standard 3-vessel anatomy. Right carotid arterial system: The right common carotid artery is widely patent, as are the right internal and external carotid arteries. Mild plaque is seen in the carotid bulb. Left carotid arterial system: The left common carotid artery is widely patent, as are the left internal and external carotid arteries. Calcified plaque is noted in the carotid bulb. Vertebral arteries: The vertebral arteries are widely patent bilaterally and codominant. Subclavian arteries: Widely patent bilaterally. Intracranial vasculature: There is atherosclerotic calcification of the cavernous carotid and vertebral arteries. The internal carotid arteries are patent at the skull base, as are the anterior cerebral arteries. The left middle cerebral artery is widely patent. The proximal portions of the right middle cerebral artery are clear. There is focal occlusion of the distal M2 segment of the right middle cerebral artery. This is best seen on axial image #144 and coronal image #38. The vertebrobasilar system and posterior cerebral arteries are widely patent. The vertebral arteries are codominant. 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 This is best seen on image #126. Jugular veins: Patent bilaterally. Dural sinuses: Patent. Lung apices: Partially visualized upper lobe lung parenchyma appears clear. Soft tissues: The visualized pharyngeal soft tissues are normal in appearance noting angiographic phase technique. The oropharyngeal airway appears widely patent. The salivary and thyroid glands are normal in appearance. No cervical lymphadenopathy is seen. Skeletal structures: The skeletal structures are osteopenic. The calvarium appears intact. The cervical spine is maintained noting multilevel spondylosis. No lytic or blastic lesion is seen. Orbits: The bony orbits are intact. Orbital contents are normal as visualized noting a right ocular lens implant. Sinuses and mastoids: The paranasal sinuses are clear. The mastoid air cells are well pneumatized. IMPRESSION: 1. There is no evidence of hemorrhage, mass effect, or acute territorial ischemia noting angiographic phase technique. 2. There is focal vessel cut-off/occlusion of the distal M2 segment of the right middle cerebral artery. 3. 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 4. Unremarkable CT angiogram of the neck. ACT 112: Negative or not required by law. Electronically signed by: Woodrow Salazar M.D. 02/18/2021 2:52 PM ECG Rhythm: sinus rhythm Findings: + nonspecific-ST abn and + PVC Code Status & VTE Plan VTE Prophylaxis Plan VTE Prophylaxis will be ordered: Yes Supervising Physician Co-Signing Physician Notes Patient is an 85-year-old female with history of CAD, ischemic cardiomyopathy, chronic left hemiparesis secondary to prior CVA, paroxysmal atrial fibrillation and other medical problems presents with history of slurred speech, facial droop and worsening left-sided weakness. Patient is wheelchair-bound at baseline. He was noted this afternoon to be leaning to 1 side and was slumped over in wheelchair. She was noted to have slurred speech and left facial droop and gazed to the right. Currently she denies any pain, shortness of breath, chest pain, dizziness. CT head showed findings suggestive of occlusion of the distal M2 segment of the right middle cerebral artery and also noted 5 mm aneurysm of supraclinoid left internal carotid artery. She was thought to be not a candidate for TPA or any surgical intervention likely stroke. Please review HPI for complete details of presentation. On exam patient is thin, frail, elderly, chronically appearing, normocephalic atraumatic, EOMI, right foot gaze, lungs- decreased breath sounds, clear to auscultation, S1-S2, no pedal edema, no murmur, abdomen soft, nontender, normal bowel sounds, alert, awake, oriented, left hemiparesis,+ facial droop, slurred speech. Patient is admitted for management of strokelike symptoms. Received aspirin rectally. Given history of hemorrhagic pontine CVA in the past family concerned about starting Plavix. MRI head if pacemaker compatible. Consult neurology, neurochecks, fall precautions. Speech, PT OT requested. Bedside swallow eval. Gentle IV fluids. Hold antihypertensives. Check resting echo. Consider starting on aspirin daily once passing swallow eval. Agree with cardiac work-up for abnormal EKG. Patient's family preferred no aggressive management patient preferred to be DNI DNR and no artificial tube feeds. I personally reviewed the record. Patient is interviewed and examined at bedside. Patient's care is coordinated with Rochelle Granda PA-C. Please refer to the documentation above for details of patient's presen tation and for discussion of other issues.
[2021-02-18 18:40] LABS: Appearance Urine Clear (Clear); Bacteria Urine Automated Negative (Negative); Bilirubin Urine Negative (Negative); Blood Urine Trace (Negative); Cast Urine Automated 0 /lpf (0-5); Color Urine Yellow; Epithelial Cell Urine Auto 0-5 /lpf (0-5); Glucose Urine UA Negative (Negative); Ketones Urine Trace (Negative); Leukocyte Esterase Urine Negative (Negative); Nitrite Urine Negative (Negative); Protein Urine Negative (Negative); RBC Urine Automated 0-4 /hpf (0-4); Specific Gravity Urine 1.025 (1.000-1.030); Urobilinogen Urine Negative (Negative)
[2021-02-18] MEDS ORDERED: ACETAMINOPHEN 1000 MG/100 ML IV IV PRN (20:38)
[2021-02-18] MEDS ORDERED: PHARMACIST DISCHARGE MED REC CONSULT PRN (20:38)
[2021-02-18] MEDS ORDERED: SODIUM CHLORIDE 0.9% 1000ML 1,000 ML IV SCH (21:15)
[2021-02-18] MEDS ORDERED: ASPIRIN 300 MG SUPP PR ONE (21:15)
[2021-02-19] MEDS: *RESTASIS*ORDER AWAITING ACTION SCH ×3 (00:17→17:49)
[2021-02-19] MEDS ORDERED: PROMETHAZINE HCL 12.5 MG in SODIUM CHLORIDE 0.9% 50 ML IV STA (02:11)
[2021-02-19 03:01] LABS: Basophils # (auto) 0.01 K/uL (0-0.2); Basophils % (auto) 0.1 %; Hematocrit (blood only) 41.7 % (37-47); Hemoglobin 13.5 g/dL (12.0-16.0); Immature Granulocytes # (auto) 0.01 K/uL (0.00-0.02); Immature Granulocytes % (auto) 0.1 %; Lymphocytes # (auto) 0.81 K/uL (1.2-3.4); Lymphocytes % (auto) 7.7 %; Mean Corpuscular Hemoglobin 29.5 pg (25-34); Mean Corpuscular Hgb Conc 32.4 g/dL (32-36); Mean Corpuscular Volume 91.2 fL (80-100); Mean Platelet Volume 11.3 fL (7.4-10.4); Monocytes # (auto) 0.41 K/uL (0.11-0.59); Monocytes % (auto) 3.9 %; Neutrophils # (auto) 9.24 K/uL (1.4-6.5); Neutrophils % (auto) 88.2 %; Platelet Count 273 K/uL (130-400); RDW Coefficient of Variation 15.9 % (11.5-14.5); RDW Standard Deviation 52.8 fL (36.4-46.3); Red Blood Count 4.57 M/uL (4.2-5.4); White Blood Count 10.48 K/uL (4.8-10.8)
[2021-02-19 03:22] LABS: BUN Creatinine Ratio 11.2 (10-20); Calcium 8.7 mg/dl (8.5-10.1); Creatinine Clr Calc Pharmacy 32.3 ml/min; Est GFR (African American) 78.6 ml/min; Est GFR (Non-African American) 67.8 ml/min
[2021-02-19 03:27] LABS: Troponin I 0.034 ng/ml (0-0.045)
[2021-02-19] MEDS ORDERED: ONDANSETRON INJ 2 MG/ML 2 ML VIAL IV STA (05:41)
[2021-02-19 07:35] LABS: Estimated Average Glucose 123 mg/dl; Hemoglobin A1C 5.9 % (4.5-5.6)
--- NOTE | 2021-02-19 08:13 | Neurology Consultation ---
Date of Consultation February 19, 2021 Assessment & Plan (1) Stroke-like symptoms: 1. no stroke on CT head 2. continue aspirin 81 mg 3. continue metoprolol 25 mg BID 4. PT/OT for discharge needs 5. family input for further intervention and management (2) Left-sided weakness: 1. chronic left sided weakness- likely exasperated by p afib hypo perfusion (3) Paroxysmal atrial fibrillation: 1. 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 She is now being sent to the unit and it appears that she became somewhat more lethargic during the episode of atrial fibrillation although this is not clear historian On exam she has a left hemiparesis. Low-volume speech is lethargic will follow a few commands does not have a movement disorder that we noted last time. I think her level of sedation has suppress the movements and if she does become more awake they will recur involving the left arm with a definite cerebellar component At this point we have no evidence for a new stroke 1 would have to wonder if she did not have some hypotension related to transient atrial fibrillation and had some transient deficits in perfusing the old area of infarction with resultant recurrence of similar symptoms but beyond this neurology has no further suggestions and I would simply continue her antiplatelet drugs and monitor her in the unit and perhaps get cardiology's advice about whether any other interventions or medication changes are necessary. Neurology is going to sign off the case but can return at any time should things change Jim Don MD History of Present Illness Reason for Consultation: stroke like symptoms Requesting Physician: Kayleigh Guzman MD Attending Physician: Kayleigh Guzman MD History of Present Illness Shruthi is a 85 year old female with PMH- CAD, ischemic cardiomyopathy, chronic LLL DVT s/p IVC filter, sick sinus syndrome s/p pacemaker, paroxysmal AF, HTN, HLD, h/o hemorrhagic pontine CVA, left hemiparesis, chronic left leg pain, and chronic back pain. She presented to [facility] with slurred speech 02/18/2021 patient wheelchair-bound. They were at a yard sale that day and all of a sudden she was slumped over in her wheelchair. She had slurred speech and a left facial droop and was looking off to the right. EMS was called and patient was transported to ER. The day prior she had some discomfort above right eye and some intermittent dizziness. She has reverted back to NSR was in a fib when entering the room. denies pain. Allergies Allergy/AdvReac Type Severity Reaction Status Date / Time cephalexin Allergy Intermediate Hives Verified 02/18/21 15:49 codeine Allergy Unknown edema Verified 02/18/21 15:49 airway,rash & hives egg Allergy Unknown ALLERGY TO Verified 02/18/21 15:49 EGG WHITES ketorolac Allergy Unknown Unknown Verified 02/18/21 15:49 omeprazole Allergy Unknown unknown Verified 02/18/21 15:49 propoxyphene Allergy Unknown Unknown Verified 02/18/21 15:49 Sulfa (Sulfonamide Allergy Unknown Unknown Verified 02/18/21 15:49 Antibiotics) capsaicin AdvReac Severe HIGH BP Verified 02/18/21 15:49 diclofenac AdvReac Severe HIGH BP Verified 02/18/21 15:50 Diclopak AdvReac Severe HIGH BP Verified 03/09/18 20:00 isopropyl alcohol AdvReac Severe HIGH BP Verified 02/18/21 15:50 propylene glycol AdvReac Severe HIGH BP Verified 02/18/21 15:50 tizanidine AdvReac Intermediate DELIRIUM Verified 02/18/21 15:50 sucralfate AdvReac Unknown itching,n/v Verified 02/18/21 15:50 Home Medications Medication Instructions Recorded Confirmed Type cyclosporine 0.05 % eye drops in a 2 drp OPB BID 08/08/18 02/18/21 History dropperette (Restasis) fluticasone propionate 50 2 spray INTRANASAL DAILY PRN 08/08/18 02/18/21 History mcg/actuation nasal spray,suspension (Flonase Allergy Relief) gabapentin 100 mg capsule 200 mg PO TID 08/08/18 02/18/21 History (Neurontin) metoprolol tartrate 50 mg tablet 25 mg PO BID 08/08/18 02/18/21 History (Lopressor) polyethylene glycol 3350 17 gram 17 g PO DAILY PRN 08/08/18 02/18/21 History oral powder packet (Miralax) aspirin 81 mg tablet,delayed 81 mg PO QAM 10/11/18 02/18/21 History release ondansetron 4 mg disintegrating 4 mg PO Q8H PRN 03/21/20 02/18/21 History tablet Patient History Medical History (Updated 02/19/21 @ 14:31 by Trav Martinez DO) 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 CAD (coronary artery disease) "left cx PCI 2003" Chronic CHF Chronic pain Complicated UTI (urinary tract infection) History of recurrent deep vein thrombosis (DVT) Ischemic cardiomyopathy Left leg DVT Left leg pain Low back pain Pacemaker "with mass noted on lead in right ventricle" Paroxysmal atrial fibrillation PAT (paroxysmal atrial tachycardia) Sick sinus syndrome Sinoatrial node dysfunction Surgical History H/O splenectomy History of repair of hiatal hernia History of tonsillectomy and adenoidectomy S/P IVC filter Family History Other Cancer Heart disease Social History Smoking Status: Never smoker Hx Alcohol Use: No Hx Substance Use: No Preferred Language: Luxembourgish Communication Ability: Impaired Continuity Reader Required: No Beliefs That Will Affect Care: None marital status: / Current Living Situation: Family Current Living Situation Comment: 24 hour care How many Children do You have: 9 Feels Safe at Home: Yes Assistive Devices: Wheelchair Review of Systems Review of Systems: Unobtainable due to cognitive status Physical Exam Physical Exam: Physical Exam: Constitutional: appearance thin and ill appearing Ears, Nose, Mouth and Throat: mucous membranes moist, no injection and skin normal, eyes normal Cardiovascular: normal S-1 and S-2 and regular rate and rhythm Respiratory: course breath sounds Musculoskeletal: no peripheral edema and good distal pulses Skin: no stigmata of neurocutaneous disease noted and normal and intact Eyes: non focal NEUROLOGIC EXAMINATION: Mental status: Alert and minimall interactive Oriented to person Speech very difficult to understand Cranial Nerves unable to assess Sensory: responds to deep stimulate Coordination: moves right arm spontaneously Gait/Stance: Posture lying in bed Motor: moves right arm spontaneously Strength: generalized weakness, flaccid left arm, move both legs with deep stimulation Results & Data ([facility]) Vital Signs (Past 12 Hours) Vital Signs Temp Pulse Pulse Resp BP Pulse Ox 02/19/21 07:58 37.2 C 107 H 16 174/71 H 96 02/19/21 03:27 36.4 C L 97 H 16 166/73 H 96 02/19/21 00:19 36.6 C 76 16 196/76 H 95 02/19/21 00:00 76 02/18/21 21:26 36.4 C L 76 16 196/76 H 95 Laboratory Results Abnormal lab results 02/18/21 02/18/21 02/19/21 Range/Units 18:30 20:55 02:33 WBC (4.8-10.8) K/uL RBC (4.2-5.4) M/uL Hct (37-47) % RDW Std Deviation 52.8 H (36.4-46.3) fL RDW Coeff of Barney 15.9 H (11.5-14.5) % MPV 11.3 H (7.4-10.4) fL Neut # (Auto) 9.24 H (1.4-6.5) K/uL Lymph # (Auto) 0.81 L (1.2-3.4) K/uL Lynn # (Auto) (0.11-0.59) K/uL Immature Gran # (Auto) (0.00-0.02) K/uL ABG pO2 (80-95) mmHg ABG O2 Saturation (90-95) % Chloride (98-107) mmol/L Glucose (70-99) mg/dl Hemoglobin A1c (4.5-5.6) % Calcium (8.5-10.1) mg/dl Troponin I 0.046 H* (0-0.045) ng/ml NT-Pro-B Natriuret Pep (0-1800) pg/ml Albumin (3.4-5.0) gm/dl Albumin/Globulin Ratio (0.9-2) Urine pH 8.0 H (4.5-7.5) Urine Ketones Trace H (Negative) Urine Blood Trace H (Negative) 02/19/21 02/19/21 02/19/21 Range/Units 02:33 02:33 14:18 WBC (4.8-10.8) K/uL RBC (4.2-5.4) M/uL Hct (37-47) % RDW Std Deviation (36.4-46.3) fL RDW Coeff of Barney (11.5-14.5) % MPV (7.4-10.4) fL Neut # (Auto) (1.4-6.5) K/uL Lymph # (Auto) (1.2-3.4) K/uL Lynn # (Auto) (0.11-0.59) K/uL Immature Gran # (Auto) (0.00-0.02) K/uL ABG pO2 (80-95) mmHg ABG O2 Saturation (90-95) % Chloride 108 H 109 H (98-107) mmol/L Glucose 147 H 148 H (70-99) mg/dl Hemoglobin A1c 5.9 H (4.5-5.6) % Calcium 8.2 L (8.5-10.1) mg/dl Troponin I (0-0.045) ng/ml NT-Pro-B Natriuret Pep 6669 H (0-1800) pg/ml Albumin 2.7 L (3.4-5.0) gm/dl Albumin/Globulin Ratio 0.7 L (0.9-2) Urine pH (4.5-7.5) Urine Ketones (Negative) Urine Blood (Negative) 02/19/21 02/19/21 Range/Units 14:18 14:18 WBC 17.45 H (4.8-10.8) K/uL RBC 4.00 L (4.2-5.4) M/uL Hct 36.3 L (37-47) % RDW Std Deviation 52.4 H (36.4-46.3) fL RDW Coeff of Barney 15.7 H (11.5-14.5) % MPV 10.7 H (7.4-10.4) fL Neut # (Auto) 15.26 H (1.4-6.5) K/uL Lymph # (Auto) 0.76 L (1.2-3.4) K/uL Lynn # (Auto) 1.36 H (0.11-0.59) K/uL Immature Gran # (Auto) 0.05 H (0.00-0.02) K/uL ABG pO2 79 L (80-95) mmHg ABG O2 Saturation 96.0 H (90-95) % Chloride (98-107) mmol/L Glucose (70-99) mg/dl Hemoglobin A1c (4.5-5.6) % Calcium (8.5-10.1) mg/dl Troponin I (0-0.045) ng/ml NT-Pro-B Natriuret Pep (0-1800) pg/ml Albumin (3.4-5.0) gm/dl Albumin/Globulin Ratio (0.9-2) Urine pH (4.5-7.5) Urine Ketones (Negative) Urine Blood (Negative) Diagnostic Findings CTA head and neck-There is no evidence of hemorrhage, mass effect, or acute territorial ischemia noting angiographic phase technique. There is focal vessel cut-off/occlusion of the distal M2 segment of the right middle cerebral artery. 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 Unremarkable CT angiogram of the neck.
[2021-02-19] MEDS: PROMETHAZINE HCL 12.5 MG in SODIUM CHLORIDE 0.9% 50 ML IV PRN (08:57)
[2021-02-19] MEDS ORDERED: METOPROLOL TARTRATE 1 MG/ML VIAL IV STA ×2 (13:45→14:36)
[2021-02-19] MEDS ORDERED: SODIUM CHLORIDE 0.9% 1000ML 500 ML IV ONE (13:46)
[2021-02-19] MEDS ORDERED: METOPROLOL TARTRATE 1 MG/ML VIAL IV ONE (13:46)
--- NOTE | 2021-02-19 14:23 | XRay Report ---
XR chest 1V portable CLINICAL HISTORY: tachypnea, new onset afib w RVR COMPARISON STUDY: Chest radiograph February 02, 2019. FINDINGS: A left subclavian pacemaker is in place. Note is made of a hiatal hernia. Left basilar opac ity is likely related to a hernia or elevation of the left hemidiaphragm. There are trace right and s mall left pleural effusions. Cardiomegaly is unchanged. There is no evidence for pulmonary edema. IMPRESSION: 1. Cardiomegaly without overt pulmonary edema. 2. Small left and trace right pleural effusions. ACT 112: Negative or not required by law. Electronically signed by: George Maharaj M.D. 02/19/2021 2:22 PM
--- NOTE | 2021-02-19 14:25 | XRay Report ---
XR KUB/Abdomen 1 view CLINICAL HISTORY: recurrent nausea/vomiting COMPARISON STUDY: No previous studies for comparison. FINDINGS: Nondilated gas and stool-filled loops of bowel are seen throughout the abdomen There is no evidence of free intra-abdominal air, however please note that supine abdominal radiograp hy has limited ability for evaluation for the free intra-abdominal air. Bilateral pleural effusion is seen, small on the right and partially visualized and probably large on the left. Vascular and costochondral calcifications are seen. Few calcifications are seen within pelvic region which might represent phleboliths. Ill-defined area of increase attenuation is seen within lower pelvis which might represent fluid-fill ed urinary bladder. Osseous structures are diffusely demineralized. Mild degenerative changes of the spine. Distal pacemaker wires, IVC filter and cholecystectomy clips are seen. Overall evaluation is limited due to multiple overlying wires. IMPRESSION: 1. Nonobstructive bowel gas pattern. 2. Bilateral pleural effusion, possibly large on the left. 3. The rest of findings as above. ACT 112: Negative or not required by law. The above report was generated using voice recognition software. It may contain grammatical, syntax o r spelling errors. Electronically signed by: Arpita Hodges DO 02/19/2021 2:24 PM
[2021-02-19 14:27] LABS: Basophils # (auto) 0.02 K/uL (0-0.2); Basophils % (auto) 0.1 %; Hematocrit (blood only) 36.3 % (37-47); Immature Granulocytes # (auto) 0.05 K/uL (0.00-0.02); Immature Granulocytes % (auto) 0.3 %; Lymphocytes # (auto) 0.76 K/uL (1.2-3.4); Lymphocytes % (auto) 4.4 %; Mean Corpuscular Volume 90.8 fL (80-100); Mean Platelet Volume 10.7 fL (7.4-10.4); Monocytes # (auto) 1.36 K/uL (0.11-0.59); Monocytes % (auto) 7.8 %; Neutrophils # (auto) 15.26 K/uL (1.4-6.5); Neutrophils % (auto) 87.4 %; Platelet Count 262 K/uL (130-400); RDW Coefficient of Variation 15.7 % (11.5-14.5); RDW Standard Deviation 52.4 fL (36.4-46.3); White Blood Count 17.45 K/uL (4.8-10.8)
[2021-02-19 14:30] LABS: Mean Corpuscular Hgb Conc 33.1 g/dL (32-36)
[2021-02-19 14:31] LABS: Base Excess ABG -3.8 mEq/L (-9-1.8); HCO3 ABG 21 mmol/L (19-24); PCO2 ABG 37 mmHg (35-46); PO2 ABG 79 mmHg (80-95); pH ABG 7.37 (7.35-7.45)
[2021-02-19 14:32] LABS: Allen Test Pos (Pos)
--- NOTE | 2021-02-19 14:34 | Cardiology Consultation ---
Date of Consultation February 19, 2021 Assessment & Plan (1) Paroxysmal atrial fibrillation: For now, agree with transfer to PCU, and rate control with IV metoprolol. With regards to the ST segment depression, I think that she likely does have rate related myocardial ischemia, but she is unable to describe any signs or symptoms of angina at present, I think that this will improve with rate control. (2) Acute right MCA stroke: Based on her presentation symptoms of worsening left sided neurologic deficit, and findings of CTA, it appears that she has suffered a right MCA territory stroke episode. Although she was in sinus rhythm on presentation yesterday, with having reverted to atrial fibrillation, I would speculate that the episode was cardioembolic in phenomenon. This of course raises concerns of acutely converting her back to sinus rhythm again for fear of recurrent embolism with chemical cardioversion. I do not think repeating a transthoracic echocardiogram would change her management. This is the first time I am seeing the patient, and I am not certain what her baseline neurologic deficits are. She appears frail and cachectic, and I not sure that even if we deemed her to the a candidate for anticoagulation (previously determined to not be an anticoagulation candidate dating all the way back to 2013) but it would change her trajectory at present, as she has no neurologic deficits, and is not swallowing. At present I think the most important thing is to have a further discussion with the family with regards to her poor prognosis and goals of care. The palliative approach appears to be the most prudent course of action. A telestroke consultation had raised the question of whether or not a watchman device could be considered in the future, my initial impression is that she would be a poor candidate for such a procedure. History of Present Illness Attending Physician: Candy Sanchez, History of Present Illness Shruthi Shirley is an 85 year old female seen in cardiology consultation per the request of Dr. Sanchez for evaluation of rapid atrial fibrillation, ST segment depression, and stroke. The patient's primary proof technician is Dr. Yates of our practice. She has a history of permanent pacemaker implantation and brief episodes of paroxysmal atrial fibrillation. She is reportedly not on anticoagulation due to a history of hemorrhagic pontine stroke. She has a chronic left-sided neurologic deficit but yesterday at home she was found to have worsening left- sided facial droop and slurred speech. CT angiogram of the brain performed yesterday revealed a focal vessel cutoff/occlusion of the distal M2 segment of the right middle cerebral artery, which correlated with her visual deficit. Sinus rhythm as documented on presenting EKG performed yesterday at 1438, but just after 12 noon today, 02/19/2021, she reverted to atrial fibrillation, with rates that became progressively higher over the next 2 hours. At the time my assessment she had recently had a repeat EKG revealing atrial fibrillation with rapid ventricular response at just over 150 bpm, with anterior ST depression suggestive of ischemia in this territory. The patient is frail, cachectic, and unable to speak with me at present. She did move her right hand on my request. PAST SURGICAL HISTORY: 1. [employer] permanent pacemaker placement complicated by mass on the 12-lead, which has been stable since 2012. 2. History of PCI to the circumflex. 3. Cystoscopy. 4. Nephrostomy tube. 5. Splenectomy. 6. Tonsil and adenoidectomy. 7. Hernia repair. MEDICAL ILLNESSES: 1. Paroxysmal atrial tachycardia. 2. Brief episodes of paroxysmal atrial fibrillation 3. Stable pacemaker lead mass. 4. Coronary artery disease. 5. Sick sinus syndrome, status post permanent pacemaker placement. 6. Chronic left lower extremity DVT. 7. History of hemorrhagic pontine CVA, in 2014 per outpatient chart 8. Dyslipidemia, statin intolerance. 9. Hypertension. Allergies Allergy/AdvReac Type Severity Reaction Status Date / Time cephalexin Allergy Intermediate Hives Verified 02/18/21 15:49 codeine Allergy Unknown edema Verified 02/18/21 15:49 airway,rash & hives egg Allergy Unknown ALLERGY TO Verified 02/18/21 15:49 EGG WHITES ketorolac Allergy Unknown Unknown Verified 02/18/21 15:49 omeprazole Allergy Unknown unknown Verified 02/18/21 15:49 propoxyphene Allergy Unknown Unknown Verified 02/18/21 15:49 Sulfa (Sulfonamide Allergy Unknown Unknown Verified 02/18/21 15:49 Antibiotics) capsaicin AdvReac Severe HIGH BP Verified 02/18/21 15:49 diclofenac AdvReac Severe HIGH BP Verified 02/18/21 15:50 Diclopak AdvReac Severe HIGH BP Verified 03/09/18 20:00 isopropyl alcohol AdvReac Severe HIGH BP Verified 02/18/21 15:50 propylene glycol AdvReac Severe HIGH BP Verified 02/18/21 15:50 tizanidine AdvReac Intermediate DELIRIUM Verified 02/18/21 15:50 sucralfate AdvReac Unknown itching,n/v Verified 02/18/21 15:50 Home Medications Medication Instructions Recorded Confirmed Type cyclosporine 0.05 % eye drops in a 2 drp OPB BID 08/08/18 02/18/21 History dropperette (Restasis) fluticasone propionate 50 2 spray INTRANASAL DAILY PRN 08/08/18 02/18/21 History mcg/actuation nasal spray,suspension (Flonase Allergy Relief) gabapentin 100 mg capsule 200 mg PO TID 08/08/18 02/18/21 History (Neurontin) metoprolol tartrate 50 mg tablet 25 mg PO BID 08/08/18 02/18/21 History (Lopressor) polyethylene glycol 3350 17 gram 17 g PO DAILY PRN 08/08/18 02/18/21 History oral powder packet (Miralax) aspirin 81 mg tablet,delayed 81 mg PO QAM 10/11/18 02/18/21 History release ondansetron 4 mg disintegrating 4 mg PO Q8H PRN 03/21/20 02/18/21 History tablet Patient History Medical History (Updated 02/19/21 @ 14:31 by Trav Martinez DO) 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 CAD (coronary artery disease) "left cx PCI 2003" Chronic CHF Chronic pain Complicated UTI (urinary tract infection) History of recurrent deep vein thrombosis (DVT) Ischemic cardiomyopathy Left leg DVT Left leg pain Low back pain Pacemaker "with mass noted on lead in right ventricle" Paroxysmal atrial fibrillation PAT (paroxysmal atrial tachycardia) Sick sinus syndrome Sinoatrial node dysfunction Surgical History H/O splenectomy History of repair of hiatal hernia History of tonsillectomy and adenoidectomy S/P IVC filter Family History Other Cancer Heart disease Social History Smoking Status: Never smoker Hx Alcohol Use: No Hx Substance Use: No Preferred Language: Welsh Communication Ability: Impaired Fast Food Server Required: No Beliefs That Will Affect Care: None Current Living Situation: Family Current Living Situation Comment: 24 hour care Feels Safe at Home: Yes Assistive Devices: Wheelchair Review of Systems Review of Systems: Unobtainable due to reduced consciousness Physical Exam Physical Exam: Temp Pulse Resp BP Pulse Ox 37.1 C 158 H 14 163/83 H 96 02/19/21 13:35 02/19/21 14:01 02/19/21 13:35 02/19/21 14:01 02/19/21 13:35 Constitutional: + cachectic Respiratory: Auscultation: + diminished lung sounds; no crackles and no rales Cardiovascular: Rate/Rhythm: + tachycardic and + irregularly irregular Heart Sounds: + murmur (I/ SM) Neurologic: Left-sided hemiparesis, suspected neglect. Expressive aphasia Results & Data ([facility]) Vital Signs (Past 12 Hours) Vital Signs Temp Pulse Pulse Resp BP BP Pulse Ox 02/19/21 14:01 158 H 163/83 H 02/19/21 13:35 37.1 C 156 H 14 163/83 H 96 02/19/21 10:57 36.8 C 104 H 14 98/65 L 95 02/19/21 07:58 37.2 C 107 H 16 174/71 H 96 02/19/21 03:27 36.4 C L 97 H 16 166/73 H 96 Laboratory Results Cardiac Enzymes 02/18/21 02/18/21 02/19/21 Range/Units 14:43 20:55 02:33 AST 20 (15-37) U/L Troponin I < 0.015 0.046 H* 0.034 (0-0.045) ng/ml Coagulation 02/18/21 Range/Units 14:43 PT 11.0 (9.0-12.0) Seconds APTT 22.5 (21.0-31.0) Seconds Lipids 02/19/21 Range/Units 02:33 Triglycerides 62 (0-150) mg/dl Cholesterol 197 (0-200) mg/dl HDL Cholesterol 59 mg/dl Cholesterol/HDL Ratio 3 CBC 02/18/21 02/19/21 02/19/21 Range/Units 14:43 02:33 14:18 WBC 10.35 10.48 17.45 H (4.8-10.8) K/uL RBC 4.26 4.57 4.00 L (4.2-5.4) M/uL Hgb 12.6 13.5 12.0 (12.0-16.0) g/dL Hct 38.8 41.7 36.3 L (37-47) % Plt Count 262 273 262 (130-400) K/uL Neut # (Auto) 4.13 9.24 H 15.26 H (1.4-6.5) K/uL Lymph # (Auto) 4.63 H 0.81 L 0.76 L (1.2-3.4) K/uL Harrison # (Auto) 1.32 H 0.41 1.36 H (0.11-0.59) K/uL Eos # (Auto) 0.21 0.00 0.00 (0-0.5) K/uL Baso # (Auto) 0.04 0.01 0.02 (0-0.2) K/uL Comprehensive Metabolic Panel 02/18/21 02/19/21 Range/Units 14:43 02:33 Sodium 135 L 139 (136-145) mmol/L Potassium 3.8 4.0 (3.5-5.1) mmol/L Chloride 104 108 H (98-107) mmol/L Carbon Dioxide 26 26 (21-32) mmol/L BUN 9 9 (7-18) mg/dl Creatinine 0.85 0.79 (0.6-1.2) mg/dl Glucose 105 H 147 H (70-99) mg/dl Calcium 8.6 8.7 (8.5-10.1) mg/dl AST 20 (15-37) U/L ALT 13 (12-78) U/L Alkaline Phosphatase 79 (45-117) U/L Total Protein 6.8 (6.4-8.2) gm/dl Albumin 2.7 L (3.4-5.0) gm/dl Intake and Output 02/18/21 02/19/21 02/19/21 22:59 06:59 14:59 Intake Total 500 / 550.5 50.5 / 550.5 1050.5 / 1050.5 Output Total 725 / 725 250 / 250 Balance 500 / -174.5 -674.5 / -174.5 800.5 / 800.5 Intake: IV 500 / 550.5 50.5 / 550.5 1050.5 / 1050.5 Promethazine HCl 12.5 mg In 50.5 / 50.5 50.5 / 50.5 Sodium Chloride 0.9% 50 ml @ 202 mls/hr IV Q6H PRN Rx#: [id number] Sodium Chloride 0.9% 1000ML 1, 500 / 500 1000 / 1000 000 ml @ 80 mls/hr IV .[id number] [facility] Rx#:[id number] Oral 0 / 0 Output: Urine 725 / 725 Urine Amount (Catheter) 250 / 250 Walker/Indwelling 250 / 250 Other: Other Intake Source npo Weight 40 kg Weight Measurement Method Built in [facility] Diagnostic Findings Echocardiogram performed 02/03/2019 revealed moderate concentric left ventricular hypertrophy with moderate sized posterior lateral wall motion abnormality with akinesis of the segments, LVEF at the lower limit of normal, 50 to 55%, mild aortic valve sclerosis without stenosis, grade 2 diastolic dysfunction, moderate mitral regurgitation.
--- NOTE | 2021-02-19 14:38 | Hospitalist Progress Note ---
Date of Service February 19, 2021 Assessment & Plan (1) Stroke-like symptoms: Plan: H/O hemorrhagic pontine CVA, History left hemiparesis. Presents with new episode of unresponsiveness with subsequent generalized weakness, fatigue and difficulty with speech. No new stroke seen on CTA. Per neurology, cont her current antiplatelet therapy. Uncertain if there may have been transient atrial fibrillation causing hypotension or otherwise poor cerebral perfusion tempora rily causing current symptoms. For now, she is having dysphagia and is not safe to swallow. She is also wheelchair-bound at baseline. I met with family including 4-5 children at the bedside who all agreed she would not want any form of artificial feeding if her swallowing ability did not return. For now, will cont supportive care efforts. Palliative care to see her for goals of care conversation. (2) Atrial fibrillation with RVR: Plan: Patient with a h/o PAF who went into rapid atrial fibrillation on the floor wtih a heart rate 180. At the bedside she was asymptomatic and unchanged from a physical standpoint since previous exam. She had recently been vomiting and several antiemetics had been given in an attempt to improve her nausea. String of events as above. Amio load per cardiology once she was back into sinus rhythm in an attempt to keep her there. Lopressor PRN for rate control. (3) Sick sinus syndrome: Plan: s/p pacemaker (4) Vomiting: Plan: uncertain cause, antiemetics PRN. KUB doesn't reveal clear ileus or other clear cause (5) Presence of IVC filter: (6) DVT prophylaxis: Plan: anticoagulation contraindicated in setting of prior hemorrhagic stroke DNR Dispo-transfer to PCU [facility] and [facility]ticipated Discharge Date Admission Date: February 18, 2021 Subjective The patient is an 85-year-old female with a history of paroxysmal atrial fibrillation who was admitted for acute stroke. As a result of pacemaker she cannot receive an MRI and underwent a CT of the head and neck with contrast revealing a focal vessel cutoff/occlusion of the distal M2 segment of the right middle cerebral artery. 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 She has a history of left-sided hemiparesis at [facility] from a previous hemorrhagic stroke and is wheelchair-bound. She does have occasional memory issues but for the most part is "sharp as attack" per family. She was found to acutely slumped over in her wheelchair and was brought in as a stroke alert with no TPA recommended. Today she remains fatigued status post Phenergan IV for persistent nausea. She is able to follow instructions but is generally weak and cannot open her eyes easily on her own. She is able to demonstrate 5 out of 5 strength on the right side including intact door to door lead generation strength. I cannot appreciate sensation as the patient is unable to vocalize much other than one-word answers including yes or no. I am able to passively move limbs on the left side. She lives alone with 24-hour care from children and nursing care. Children at the bedside and they report occasional choking or dysphagia to meats and breads but otherwise she swallows without issue. She is currently unable to swallow per speech pathology at this time. Appetite has been decreased and she is definitely malnourished and cachectic on appearance. Daughter reports her dentures were recently fixed which also promoted poor p.o. intake. As result of her prior history of hemorrhagic CVA she is not on anticoagulation for paroxysmal atrial fibrillation. I was contacted by the nurse that her heart rate was in the 180s. Upon arrival to bedside her blood pressure was 163/83 with a heart rate of 156. Rhythm looked irregular, however, the cardiac monitor technician reported sinus tachycardia. A stat EKG revealed the patient was in atrial fibrillation with RVR with ST depressions in V2 through V5. Repeat lab work revealed an elevated white blood cell count to 17K with a left shift from normal, normal H&H, normal platelets. BMP including kidney function and electrolytes were normal. Glucose was 148. Lactate 1.6, troponin was 0.029, BNP was 6600, procalcitonin was negative. A chest x-ray was ordered revealing small trace left and right pleural effusions. A KUB was also ordered in light of recurrent nausea this morning requiring multiple doses of antiemetics. This revealed nonobstructive bowel gas pattern, some demineralized osseous structures, pacemaker wires, and IVC filter, cholecystectomy clips, and some vascular calcifications. She was administered Lopressor 2.5mg IV and given a 500 cc bolus of normal saline. This brought her heart rate into the 130s. Blood pressure was 163/83. She was given an additional Lopressor 2.5 mg IV approximately 45 minutes later. This brought her heart rate to 90 bpm. During this time cardiology was consulted and reported to the bedside. A plan was discussed including consideration for amiodarone. We will await formal cardiology recommendations on this. Anticoagulation again is not feasible in light of prior hemorrhagic stroke. Family was at the bedside and was updated. Transfer to PCU. Of note, palliative care consult is pending. She converted to sinus rhythm at 1315. Cardiology with plans to load amiodarone. Review of Systems Review of Systems: Cannot obtain accurate review of systems as patient's cognition is altered. Physical Exam Physical Exam: CONSTITUTIONAL: thin, cachectic, vitals as above, generally fatigued, ill-appearing EYES: cannot perform EOM, PERRL, normal conjunctivae, no scleral icterus ENT: external ear and nose normal, MMM RESPIRATORY: clear to auscultation bilaterally, no crackles, rales or wheezes, normal respiratory effort CARDIOVASCULAR: regular rate and rhythm, S1 and 2 heard without murmurs, gallops or rubs, no JVD, no peripheral edema GASTROINTESTINAL: soft, nontender, nondistended, no guarding MUSCULOSKELETAL: left side of body is flaccid, i am able to passively move left upper and lower extremities with ease. Strength 5/5 on right side. SKIN: warm and dry NEUROLOGIC: fatigued with depressed cognition, eyes closed and does not open them but will follow commands. Speech is very limited with grunts or one word yes/no if she responds. PSYCHIATRIC: alert cooperative and oriented to person, place and time. Euthymic mood, makes good eye contact, language grossly intact, recent and remote memory grossly intact. LYMPHATIC: no LAD Results & Data Results & Data ([facility]) Vital Signs (Past 12 Hours) Vital Signs Temp Pulse Pulse Resp BP BP Pulse Ox 02/19/21 14:01 158 H 163/83 H 02/19/21 13:35 37.1 C 156 H 14 163/83 H 96 02/19/21 10:57 36.8 C 104 H 14 98/65 L 95 02/19/21 07:58 37.2 C 107 H 16 174/71 H 96 02/19/21 03:27 36.4 C L 97 H 16 166/73 H 96 Laboratory Results Short CBC 02/18/21 02/19/21 02/19/21 Range/Units 14:43 02:33 14:18 WBC 10.35 10.48 17.45 H (4.8-10.8) K/uL Hgb 12.6 13.5 12.0 (12.0-16.0) g/dL Hct 38.8 41.7 36.3 L (37-47) % Plt Count 262 273 262 (130-400) K/uL BMP 02/18/21 02/19/21 14:43 02:33 Sodium 135 L 139 Potassium 3.8 4.0 Chloride 104 108 H Carbon Dioxide 26 26 BUN 9 9 Creatinine 0.85 0.79 Glucose 105 H 147 H Calcium 8.6 8.7 Cardiac Enzymes 02/18/21 02/18/21 02/19/21 Range/Units 14:43 20:55 02:33 Troponin I < 0.015 0.046 H* 0.034 (0-0.045) ng/ml Liver Function 02/18/21 Range/Units 14:43 Total Bilirubin 0.6 (0.2-1) mg/dl AST 20 (15-37) U/L ALT 13 (12-78) U/L Alkaline Phosphatase 79 (45-117) U/L Albumin 2.7 L (3.4-5.0) gm/dl Urine 02/18/21 Range/Units 18:30 Urine Color Yellow Urine Appearance Clear (Clear) Urine pH 8.0 H (4.5-7.5) Ur Specific [place] 1.025 (1.000-1.030) Urine Protein Negative (Negative) Urine Glucose (UA) Negative (Negative) Diagnostic Findings 02/19: KUB XR KUB/Abdomen 1 view CLINICAL HISTORY: recurrent nausea/vomiting COMPARISON STUDY: No previous studies for comparison. FINDINGS: Nondilated gas and stool-filled loops of bowel are seen throughout the abdomen There is no evidence of free intra-abdominal air, however please note that supine abdominal radiography has limited ability for evaluation for the free intra-abdominal air. Bilateral pleural effusion is seen, small on the right and partially visualized and probably large on the left. Vascular and costochondral calcifications are seen. Few calcifications are seen within pelvic region which might represent phleboliths. Ill-defined area of increase attenuation is seen within lower pelvis which might represent fluid-filled urinary bladder. Osseous structures are diffusely demineralized. Mild degenerative changes of the spine. Distal pacemaker wires, IVC filter and cholecystectomy clips are seen. Overall evaluation is limited due to multiple overlying wires. IMPRESSION: 1. Nonobstructive bowel gas pattern. 2. Bilateral pleural effusion, possibly large on the left. 3. The rest of findings as above. 02/19: XR chest 1V portable CLINICAL HISTORY: tachypnea, new onset afib w RVR COMPARISON STUDY: Chest radiograph February 02, 2019. FINDINGS: A left subclavian pacemaker is in place. Note is made of a hiatal hernia. Left basilar opacity is likely related to a hernia or elevation of the left hemidiaphragm. There are trace right and small left pleural effusions. Cardiomegaly is unchanged. There is no evidence for pulmonary edema. IMPRESSION: 1. Cardiomegaly without overt pulmonary edema. 2. Small left and trace right pleural effusions. Medications Administered Current Inpatient Medications Acetaminophen (Acetaminophen 1000 Mg/100 Ml Iv) 1,000 mg IV Q8H PRN PRN Reason: Pain or Fever Stop: 02/21/21 20:37 Promethazine HCl 12.5 mg/ (Sodium Chloride) 50.5 mls @ 202 mls/hr IV Q6H PRN PRN Reason: Nausea And Vomiting Stop: 03/21/21 08:18 Last Infusion: 02/19/21 09:48 Dose: Infused Documented by: Metoprolol Tartrate (Metoprolol Tartrate 1 Mg/Ml Vial) 2.5 mg IV NOW STA Stop: 02/19/21 14:37 Miscellaneous (*Restasis*Order Awaiting Action) 1 ea N/A QS PADMINI Stop: 03/21/21 00:00 Last Admin: 02/19/21 08:29 Dose: Not Given Documented by: Miscellaneous Information (Pharmacist Discharge Med Rec Consult) 1 ea N/A UD PRN PRN Reason: Consult Stop: 03/20/21 20:37 (1) Vomiting Nausea presence: with nausea Vomiting Intractability: non-intractable Vomiting type: unspecified Qualified Code(s): R11.2 - Nausea with vomiting, unspecified
[2021-02-19 14:50] LABS: Albumin Level 2.7 gm/dl (3.4-5.0); BUN Creatinine Ratio 12.5 (10-20); Calcium 8.2 mg/dl (8.5-10.1); Creatinine Clr Calc Pharmacy 33.6 ml/min; Est GFR (African American) 82.3 ml/min; Magnesium 2.2 mg/dl (1.8-2.4); Potassium 3.5 mmol/L (3.5-5.1)
[2021-02-19 14:55] LABS: Albumin Globulin Ratio 0.7 (0.9-2); Bilirubin,Total 0.8 mg/dl (0.2-1); Globulin 3.8 gm/dl (2.5-4.0); Total Protein 6.5 gm/dl (6.4-8.2); Troponin I 0.029 ng/ml (0-0.045)
--- NOTE | 2021-02-19 15:16 | Electrocardiogram Report ---
Test Reason : Blood Pressure : / mmHG Vent. Rate : 142 BPM Atrial Rate : 312 BPM P-R Int : 000 ms QRS Dur : 080 ms QT Int : 308 ms P-R-T Axes : 000 -17 075 degrees QTc Int : 473 ms Atrial fibrillation with rapid ventricular response ST depression in Anterior leads , consider ischemia Abnormal ECG When compared with ECG of 18-FEB-2021 14:38, Atrial fibrillation has replaced Sinus rhythm Vent. rate has increased BY 61 BPM Confirmed by Severino Kenney ([id number]) on 02/19/2021 3:16:27 PM Referred By: REFERRED SELF Confirmed By:Severino Kenney
[2021-02-19] MEDS ORDERED: 0.2 MICRON FILTER SET 1 EA IV ONE (16:46)
[2021-02-19] MEDS ORDERED: AMIODARONE / D5W 150 MG/100 ML BAG IV STA (16:46)
[2021-02-19] MEDS ORDERED: STAT IV Infusion **Titration per Protocol STA (16:46)
[2021-02-19] MEDS ORDERED: AMIODARONE IV BOLUS & DRIP IV STA (16:46)
--- NOTE | 2021-02-19 16:49 | Communication Note ---
Date of Service: February 19, 2021 Spontaneous conversion to sinus rhythm noted at 3:15 pm. Will start IV amiodarone in effort to maintain sinus rhythm. Has pacemaker to provide HR support. IV route, given concerns about taking oral medications.
[2021-02-19] MEDS ORDERED: AMIODARONE / D5W 360 MG/200 ML BAG IV ONE (16:55)
[2021-02-19] MEDS: AMIODARONE / D5W 360 MG/200 ML BAG IV SCH (22:34)
[2021-02-20] MEDS: *RESTASIS*ORDER AWAITING ACTION SCH ×3 (00:29→15:40)
[2021-02-20] MEDS: PROMETHAZINE HCL 12.5 MG in SODIUM CHLORIDE 0.9% 50 ML IV PRN ×2 (00:43→15:43)
[2021-02-20] MEDS ORDERED: ONDANSETRON INJ 2 MG/ML 2 ML VIAL IV STA ×2 (01:08→17:43)
[2021-02-20 08:29] LABS: Basophils # (auto) 0.01 K/uL (0-0.2); Basophils % (auto) 0.1 %; Hematocrit (blood only) 35.8 % (37-47); Hemoglobin 11.8 g/dL (12.0-16.0); Immature Granulocytes # (auto) 0.04 K/uL (0.00-0.02); Immature Granulocytes % (auto) 0.2 %; Lymphocytes % (auto) 9.1 %; Mean Corpuscular Hemoglobin 29.8 pg (25-34); Mean Corpuscular Volume 90.4 fL (80-100); Mean Platelet Volume 11.1 fL (7.4-10.4); Monocytes # (auto) 1.55 K/uL (0.11-0.59); Monocytes % (auto) 8.9 %; Neutrophils % (auto) 81.7 %; Platelet Count 251 K/uL (130-400); RDW Coefficient of Variation 15.9 % (11.5-14.5); RDW Standard Deviation 52.8 fL (36.4-46.3); Red Blood Count 3.96 M/uL (4.2-5.4)
[2021-02-20 09:01] LABS: BUN Creatinine Ratio 15.9 (10-20); Calcium 8.7 mg/dl (8.5-10.1); Creatinine Clr Calc Pharmacy 30.9 ml/min; Est GFR (African American) 79.8 ml/min; Est GFR (Non-African American) 68.8 ml/min; Potassium 3.2 mmol/L (3.5-5.1)
--- NOTE | 2021-02-20 10:40 | Cardiology Progress Note ---
Date of Service February 20, 2021 Assessment & Plan (1) Acute right MCA stroke: Plan: 85-year-old female presents to the emergency department with acute cerebrovascular accident. She is unable to swallow with left-sided paralysis. Remains n.p.o. Prognosis is poor. Await neurology recommendations regarding further imaging. (2) Paroxysmal atrial fibrillation: Plan: Spontaneous conversion to sinus rhythm. Low atrial fibrillation burden intermittently noted on prior pacemaker interrogations. Contraindications to chronic anticoagulation with history of pontine hemorrhage 2012. Continue intravenous amiodarone to maintain sinus rhythm currently. (3) Ischemic cardiomyopathy: Plan: Patient appears compensated/euvolemic. No indication for diuretic therapy currently. Oral medications on hold. Admission and Anticipated Discharge Date Admission Date: February 18, 2021 Subjective Patient seen and examined at the bedside. Able to answer some question with garbled speech. She is not moving her left side. Multiple family members present at bedside. State patient abruptly became weak, with garbled speech and left-sided facial droop 02/18/21. Speech eval performed yesterday, however, significant aspiration noted. Patient remains NPO. Intravenous amiodarone initiated to maintain sinus rhythm. No recurrent atrial fibrillation overnight. Review of Systems Review of Systems: Unobtainable due to cognitive status Physical Exam Neurologic: Speech / Cognition: normal speech Motor/Sensory: + abnormal movement (Left-sided hemiplegia) Results & Data ([facility]) Vital Signs (Past 12 Hours) Vital Signs Temp Pulse Resp BP Pulse Ox 02/20/21 07:17 37.1 C 67 18 165/67 H 94 02/20/21 03:19 37.2 C 71 20 166/86 H 94 02/20/21 02:34 36.9 C 02/20/21 00:36 164/68 H 02/19/21 23:38 36.7 C 61 19 169/68 H 95
[2021-02-20] MEDS: AMIODARONE / D5W 360 MG/200 ML BAG IV SCH (10:44)
--- NOTE | 2021-02-20 12:40 | Hospitalist Progress Note ---
Date of Service February 20, 2021 Assessment & Plan (1) Stroke-like symptoms: Plan: H/O hemorrhagic pontine CVA, History left hemiparesis. Presents with new episode of unresponsiveness with subsequent generalized weakness, fatigue and difficulty with speech. No new stroke seen on CTA. Per neurology, cont her current antiplatelet therapy once able to tolerate PO. Uncertain if there may have been transient atrial fibrillation causing hypotension or otherwise poor c erebral perfusion temporarily causing current symptoms, however, yesterday's afib event did not provoke any acute worsening of mental status or hypotension. For now, she is too weak to swallow and remains a strict NPO. She is also wheelchair-bound at baseline. Palliative care discussed the plan with family. (2) Atrial fibrillation with RVR: Plan: Patient with a h/o PAF who went into rapid atrial fibrillation on the floor wtih a heart rate 180bpm. She converted into sinus rhythm with two doses of Lopressor and was placed on amiodarone to maintain sinus rhythm. She has stayed in sinus rhythm overnight. (3) Sick sinus syndrome: Plan: s/p pacemaker (4) Vomiting: Plan: uncertain cause, antiemetics PRN. KUB doesn't reveal clear ileus or other clear cause. She has been fine today and family reports nausea to be a frequent, chronic issue for her. (5) Presence of IVC filter: (6) DVT prophylaxis: Plan: anticoagulation contraindicated in setting of prior hemorrhagic stroke DNR Dispo-cont PCU monitoring. Candy Sanchez DO [facility] Hospitalist Admission and Anticipated Discharge Date Admission Date: February 18, 2021 Subjective 85-year-old female with history of paroxysmal atrial fibrillation admitted for strokelike symptoms. She developed atrial fibrillation with RVR yesterday with a heart rate in the 160s to 180s and converted back into sinus after 2 doses of Lopressor 2.5 IV. She was transferred to PCU and started on an amiodarone infusion to maintain sinus rhythm. She has been in sinus rhythm overnight. Clinically today she is very weak, cannot hold her head up off the pillow, is too weak to speak, and is resting mostly with her eyes closed. When I ask her name and how she is doing she is able to somewhat open her eyes but not able to vocalize or mouth any words. Her mouth is mostly open and she is mouth breathing at this time. She does not appear in any distress but review of systems cannot be obtained. Family is at the bedside and has questions about the causes behind her change as an acute stroke was not thought to be the case based on the information. Neurology will go back and speak with the patient. I did discuss the case with the palliative care physician and we will continue supportive care through the weekend. Goals of care were outlined with the family today. Review of Systems Review of Systems: cannot obtain ROS as patient is lethargic and too weak to speak. Physical Exam Physical Exam: CONSTITUTIONAL: thin, cachectic, vitals as above, generally fatigued, ill-appearing EYES: cannot perform EOM, PERRL, normal conjunctivae, no scleral icterus ENT: external ear and nose normal, MMM RESPIRATORY: clear to auscultation bilaterally, no crackles, rales or wheezes, normal respiratory effort CARDIOVASCULAR: regular rate and rhythm, S1 and 2 heard without murmurs, gallops or rubs, no JVD, no peripheral edema GASTROINTESTINAL: soft, nontender, nondistended, no guarding MUSCULOSKELETAL: left side of body is flaccid, i am able to passively move left upper and lower extremities with ease. Strength 5/5 on right side. SKIN: warm and dry NEUROLOGIC: fatigued with depressed cognition, eyes closed and does not open them but will follow commands. Speech is very limited with grunts or one word yes/no if she responds. PSYCHIATRIC: alert cooperative and oriented to person, place and time. Euthymic mood, makes good eye contact, language grossly intact, recent and remote memory grossly intact. LYMPHATIC: no LAD Results & Data Results & Data ([facility] [place]) Vital Signs (Past 12 Hours) Vital Signs Temp Pulse Pulse Resp BP Pulse Ox 02/20/21 11:35 36.4 C L 75 18 171/69 H 95 02/20/21 07:17 37.1 C 67 18 165/67 H 94 02/20/21 07:00 66 02/20/21 03:19 37.2 C 71 20 166/86 H 94 02/20/21 02:34 36.9 C Laboratory Results Short CBC 02/19/21 02/20/21 Range/Units 14:18 07:56 WBC 17.45 H 17.50 H (4.8-10.8) K/uL Hgb 12.0 11.8 L (12.0-16.0) g/dL Hct 36.3 L 35.8 L (37-47) % Plt Count 262 251 (130-400) K/uL BMP 02/19/21 02/20/21 14:18 07:56 Sodium 139 137 Potassium 3.5 3.2 L Chloride 109 H 105 Carbon Dioxide 21 25 BUN 9 12 Creatinine 0.76 0.78 Glucose 148 H 119 H Calcium 8.2 L 8.7 Cardiac Enzymes 02/19/21 Range/Units 14:18 Troponin I 0.029 (0-0.045) ng/ml Liver Function 02/19/21 Range/Units 14:18 Total Bilirubin 0.8 (0.2-1) mg/dl AST 22 (15-37) U/L ALT 16 (12-78) U/L Alkaline Phosphatase 78 (45-117) U/L Albumin 2.7 L (3.4-5.0) gm/dl Medications Administered Current Inpatient Medications Acetaminophen (Acetaminophen 1000 Mg/100 Ml Iv) 1,000 mg IV Q8H PRN PRN Reason: Pain or Fever Stop: 02/21/21 20:37 Promethazine HCl 12.5 mg/ (Sodium Chloride) 50.5 mls @ 202 mls/hr IV Q6H PRN PRN Reason: Nausea And Vomiting Stop: 03/21/21 08:18 Last Infusion: 02/20/21 02:18 Dose: Infused Documented by: Amiodarone HCl/Dextrose (Nexterone / D5w) 360 mg in 200 mls @ 16.667 mls/hr IV .Q12H PADMINI Stop: 03/21/21 22:59 Last Admin: 02/20/21 10:44 Dose: 0.5 mg/min, 16.7 mls/hr Documented by: Miscellaneous (*Restasis*Order Awaiting Action) 1 ea N/A QS [facility] Stop: 03/21/21 00:00 Last Admin: 02/20/21 07:21 Dose: Not Given Documented by: (1) Vomiting Nausea presence: with nausea Vomiting Intractability: non-intractable Vomiting type: unspecified Qualified Code(s): R11.2 - Nausea with vomiting, unspecified
[2021-02-20] MEDS ORDERED: D5W AND NSS 1,000 ML IV SCH (13:15)
--- NOTE | 2021-02-20 14:00 | Palliative Care Consultation ---
Date of Consultation February 20, 2021 Assessment & Plan (1) Dysphagia: Unable to assess with mental status. Monitor to see if this improves. (2) Palliative care encounter: I met with three of Shruthi's eight children at bedside. They are confident that she would not want artificial nutrition in the form of a feeding tube. Their hope is that she will improve though they understand that she is frail and ultimately her prognosis is poor. If she were to have some improvement, they would consider home care at home with possible therapy. However, if she does not return to her baseline, they would want to pursue a comfort directed approach. We discussed having hospice support at home and they would be interested in this. At this time the plan is watchful waiting. Palliative care will follow. Discussed with Dr. Sanchez. (3) Stroke-like symptoms: History of Present Illness Reason for Consultation: goals of care Requesting Physician: Dr. Sanchez Attending Physician: Candy Sanchez, DO History of Present Illness 85 yo lady with history of hemorrhagic pontine CVA, CAD, paroxysmal afib and SSS. She lives at home with 24 hour caregivers and support from her eight children. She had been out at a [place]ale on the day of admission when she developed slurred speech, left facial droop and right gaze. She had CTA which showed occlusion of right middle cerebral artery though no apparent ischemic injury. She also had an abnormal EKG with possible ischemia and afib with hypotension. She is able to open her eyes and attempts to answer questions from her family. She denies pain. She does have some facial grimmacing. She also has a history of pain in her left leg. She has had dysphagia but is not able to have a swallowing evaluation done at this time due to her mental status. Allergies Allergy/AdvReac Type Severity Reaction Status Date / Time cephalexin Allergy Intermediate Hives Verified 02/18/21 15:49 codeine Allergy Unknown edema Verified 02/18/21 15:49 airway,rash & hives egg Allergy Unknown ALLERGY TO Verified 02/18/21 15:49 EGG WHITES ketorolac Allergy Unknown Unknown Verified 02/18/21 15:49 omeprazole Allergy Unknown unknown Verified 02/18/21 15:49 propoxyphene Allergy Unknown Unknown Verified 02/18/21 15:49 Sulfa (Sulfonamide Allergy Unknown Unknown Verified 02/18/21 15:49 Antibiotics) capsaicin AdvReac Severe HIGH BP Verified 02/18/21 15:49 diclofenac AdvReac Severe HIGH BP Verified 02/18/21 15:50 Diclopak AdvReac Severe HIGH BP Verified 03/09/18 20:00 isopropyl alcohol AdvReac Severe HIGH BP Verified 02/18/21 15:50 propylene glycol AdvReac Severe HIGH BP Verified 02/18/21 15:50 tizanidine AdvReac Intermediate DELIRIUM Verified 02/18/21 15:50 sucralfate AdvReac Unknown itching,n/v Verified 02/18/21 15:50 Home Medications Medication Instructions Recorded Confirmed Type cyclosporine 0.05 % eye drops in a 2 drp OPB BID 08/08/18 02/18/21 History dropperette (Restasis) fluticasone propionate 50 2 spray INTRANASAL DAILY PRN 08/08/18 02/18/21 History mcg/actuation nasal spray,suspension (Flonase Allergy Relief) gabapentin 100 mg capsule 200 mg PO TID 08/08/18 02/18/21 History (Neurontin) metoprolol tartrate 50 mg tablet 25 mg PO BID 08/08/18 02/18/21 History (Lopressor) polyethylene glycol 3350 17 gram 17 g PO DAILY PRN 08/08/18 02/18/21 History oral powder packet (Miralax) aspirin 81 mg tablet,delayed 81 mg PO QAM 10/11/18 02/18/21 History release ondansetron 4 mg disintegrating 4 mg PO Q8H PRN 03/21/20 02/18/21 History tablet Patient History Medical History (Updated 02/20/21 @ 13:54 by Yany Staley MD) 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 CAD (coronary artery disease) "left cx PCI 2003" Chronic CHF Chronic pain Complicated UTI (urinary tract infection) History of recurrent deep vein thrombosis (DVT) Ischemic cardiomyopathy Left leg DVT Left leg pain Low back pain Pacemaker "with mass noted on lead in right ventricle" Paroxysmal atrial fibrillation PAT (paroxysmal atrial tachycardia) Sick sinus syndrome Sinoatrial node dysfunction Surgical History H/O splenectomy History of repair of hiatal hernia History of tonsillectomy and adenoidectomy S/P IVC filter Family History Other Cancer Heart disease Social History Smoking Status: Never smoker Hx Alcohol Use: No Hx Substance Use: No Preferred Language: Micronesian Communication Ability: Impaired Property Utilization Officer Required: No Beliefs That Will Affect Care: None marital status: / Current Living Situation: Family Current Living Situation Comment: 24 hour care How many Children do You have: 9 Feels Safe at Home: Yes Assistive Devices: Wheelchair Review of Systems Review of Systems: Unobtainable due to reduced consciousness [place] Symptom Assessment Score Pain 0/3 Dyspnea 0/3 Anxiety 0/3 Drowsiness 2/3 Palliative Performance Score 10% Physical Exam Constitutional: + lethargic; no acute distress ENMT: Mouth: + dry oral mucous membranes Respiratory: normal respiratory effort; no labored breathing Cardiovascular: Rate/Rhythm: regular rate and regular rhythm Gastrointestinal (Abdomen): Percussion/Palpation: abdomen nontender Musculoskeletal: Extremities: + muscle atrophy Skin: warm and dry Neurologic: left hemiparesis Results & Data ([facility]) Vital Signs (Past 12 Hours) Vital Signs Temp Pulse Pulse Resp BP Pulse Ox 02/20/21 11:35 97.5 F L 75 18 171/69 H 95 02/20/21 07:17 98.8 F 67 18 165/67 H 94 02/20/21 07:00 66 02/20/21 03:19 99.0 F 71 20 166/86 H 94 02/20/21 02:34 98.4 F PG Care Time/CCT Total # of Minutes Spent Total Time Spent: 65 Total Time Spent with Patient: Total time spent is greater than 50% in coordina tion of care (as documented) at patient's floor/unit and/or counseling patient: goals of care, hospice, family education and support Coding Level of Care Code 08086 Initial Inpt Care Lvl 2 Diagnoses Stroke-like symptoms R29.90 Dysphagia R13.10 Palliative care encounter Z51.5 Time Spent (min) 65
[2021-02-20] MEDS ORDERED: METOPROLOL TARTRATE 1 MG/ML VIAL IV STA (15:30)
[2021-02-20] MEDS: POTASSIUM CHLORIDE / WTR 10 MEQ/100 ML PLCT IV SCH ×3 (15:38→16:36)
--- NOTE | 2021-02-20 15:48 | Communication Note ---
Date of Service: February 20, 2021 Family requested discussion with neurology. they were told by their mother previously that she would want no intervention such as intubation or feeding tube and definitely wanted to avoid a SNF for her final days. they are very emotional and tearful and are having a hard time with their mother's impending . Palliative medicine has been consulted and guide the family through this process along with the primary team and critical care management. Condolences offered to family and discussed calling with any further questions or concerns. I have reviewed the tala note and the overll situation and at this time would fully suport palliative care only as it appears thaat her wishes are to have no heroic afforts made and she woould wish to avoid an extended care facility/snf if at all possible during her last days IF this indeed was a recurrent small cva ( could be missed easily by ct imaging alone) there is really no intrevention that is going to change her clinical course or prevent further events as she is not a acndidate for more than antiplatelet rx Jim Don MD
[2021-02-20] MEDS ORDERED: MoRPHine SULFATE 2 MG/ML CARP IV STA ×2 (16:36→17:43)
[2021-02-20] MEDS ORDERED: LORazepam 0.5 MG/1 ML VIAL IV STA (16:39)
[2021-02-20] MEDS ORDERED: PROMETHAZINE HCL 12.5 MG in SODIUM CHLORIDE 0.9% 50 ML IV PRN (16:40)
[2021-02-20] MEDS ORDERED: PROCHLORPERAZINE 5 MG in SYRINGE 4 ML IV PRN (16:40)
[2021-02-20] MEDS ORDERED: LORazepam 0.5 MG/1 ML VIAL IV PRN (16:40)
[2021-02-20] MEDS ORDERED: MoRPHine SULFATE 2 MG/ML CARP IV PRN (17:52)
[2021-02-20] MEDS: ATROPINE SULFATE 1% OP SOLN 5 ML BTL SL PRN ×3 (17:53→23:01)
[2021-02-20] MEDS ORDERED: STAT IV Infusion **Titration per Protocol STA (18:13)
[2021-02-20] MEDS ORDERED: MoRPHine SULF/NSS 250 MG/250 ML BTL IV SCH (18:15)
[2021-02-20] MEDS: METOPROLOL TARTRATE 1 MG/ML VIAL IV SCH (18:47)
[2021-02-20] MEDS: ONDANSETRON INJ 2 MG/ML 2 ML VIAL IV PRN (20:20)
[2021-02-21] MEDS: ONDANSETRON INJ 2 MG/ML 2 ML VIAL IV PRN (00:51)
[2021-02-21] MEDS: *RESTASIS*ORDER AWAITING ACTION SCH ×3 (00:54→14:42)
[2021-02-21] MEDS: METOPROLOL TARTRATE 1 MG/ML VIAL IV SCH ×3 (00:54→13:13)
[2021-02-21] MEDS: ATROPINE SULFATE 1% OP SOLN 5 ML BTL SL PRN ×2 (08:00→14:38)
--- NOTE | 2021-02-21 13:09 | Hospitalist Progress Note ---
Date of Service February 21, 2021 Assessment & Plan (1) Comfort measures only status: (2) Stroke-like symptoms: Plan: H/O hemorrhagic pontine CVA, History left hemiparesis. Presents with new episode of unresponsiveness with subsequent generalized weakness, fatigue and difficulty with speech and inability to swallow. No new stroke seen on CTA and MRI unable to be performed 2/2 pacemaker. Wheelchair- bound at baseline. PAF not on anticoagulation with elevated stroke risk. Presumably had an intracranial event, however, this was unproven on diagnostic studies. (3) Atrial fibrillation with RVR: (4) Sick sinus syndrome: Plan: s/p pacemaker (5) Vomiting: (6) Presence of IVC filter: Admission and Anticipated Discharge Date Admission Date: February 18, 2021 Subjective 85 yo F transitioned to comfort measures yesterday after a presumed stroke-she appears more comfortable now demonstrating apneic breathing on morphine drip at a rate of 3mg/hr. Four famly members are in the room and feel she is comfortable. ROS cannot be obtained from the patient as she is obtunded. I discussed the case with the primary nurse, Shoaib. Review of Systems Review of Systems: ROS cannot be obtained from the patient as she is obtunded Physical Exam Physical Exam: CONSTITUTIONAL: thin, cachectic, vitals as above, generally obtunded, apneic breathing ENT: mucous membranes dry, mouth breathing RESPIRATORY: clear to auscultation bilaterally, no crackles, rales or wheezes, normal respiratory effort CARDIOVASCULAR: tachy irregular rate and rhythm, S1 and 2 heard without murmurs, gallops or rubs, no peripheral edema. GASTROINTESTINAL: soft, nontender, nondistended MUSCULOSKELETAL: obtunded, very cachectic and frail SKIN: warm and dry NEUROLOGIC: obtunded Results & Data Results & Data ([facility]) Medications Administered Current Inpatient Medications Acetaminophen (Acetaminophen 1000 Mg/100 Ml Iv) 1,000 mg IV Q8H PRN PRN Reason: Pain or Fever Stop: 02/21/21 20:37 Atropine Sulfate (Atropine Sulfate 1% Op Soln 5 Ml Btl) 4 drops SL Q1H PRN PRN Reason: Secretions or pulm congestion Stop: 03/22/21 16:39 Last Admin: 02/21/21 14:38 Dose: 4 drops Documented by: Promethazine HCl 12.5 mg/ (Sodium Chloride) 50.5 mls @ 202 mls/hr IV Q6H PRN PRN Reason: Nausea And Vomiting Stop: 03/22/21 16:39 Prochlorperazine 5 mg/ Syringe 5 mls @ 5 mls/min IV Q6H PRN PRN Reason: Nausea And Vomiting Stop: 03/22/21 16:39 Lorazepam (Ativan) 0.5 mg in 1 mls @ 1 mls/min IV Q4H PRN PRN Reason: Anxiety/Agitation Stop: 03/22/21 16:39 Morphine Sulfate (Morphine Sulf/Nss) 250 mg in 250 mls @ 3 mls/hr IV .[id number] [facility]; Protocol Stop: 03/06/21 18:14 Last Titration: 02/20/21 23:00 Dose: 3 mg/hr, 3 mls/hr Documented by: Miscellaneous (*Restasis*Order Awaiting Action) 1 ea N/A QS [facility] Stop: 03/21/21 00:00 Last Admin: 02/21/21 14:42 Dose: Not Given Documented by: Morphine Sulfate (Morphine Sulfate 2 Mg/Ml Carp) 2 mg IV Q30M PRN PRN Reason: Pain/respiratory distress Stop: 03/06/21 17:51 Last Admin: 02/20/21 18:36 Dose: 2 mg Documented by: Ondansetron HCl (Ondansetron Inj 2 Mg/Ml 2 Ml Vial) 4 mg IV Q4H PRN PRN Reason: Nausea And Vomiting Stop: 03/22/21 16:39 Last Admin: 02/21/21 00:51 Dose: 4 mg Documented by: (1) Vomiting Nausea presence: with nausea Vomiting Intractability: non-intractable Vomiting type: unspecified Qualified Code(s): R11.2 - Nausea with vomiting, unspecified
[2021-02-22] MEDS: *RESTASIS*ORDER AWAITING ACTION SCH ×2 (00:02→07:43)
--- NOTE | 2021-02-22 10:25 | Discharge Summary ---
Date of Service February 22, 2021 Admission HPI Per Admitting Provider Pt is 85 y/o F with PMH CAD, ischemic cardiomyopathy, chronic LLL DVT s/p IVC filter, sick sinus syndrome s/p pacemaker, paroxysmal atrial fibrillation, HTN, dyslipidemia, h/o hemorrhagic pontine CVA, left hemiparesis, chronic left leg pain, chronic back pain presented to ER with c/o slurred speech. History obtained from patient and patient's daughters who are with her today. Reports patient wheelchair-bound. Today they were at a yard sale, around 1:40 PM when they noted patient all of a sudden was slumped over in wheelchair. They noted patient had slurred speech, seemed to have left facial droop and was looking off to the right. EMS was called and patient was transported to ER. Patient denies headache currently. Patient's daughter reports yesterday she complained of some discomfort above right eye and some intermittent dizziness. States patient with constipation and took MiraLAX yesterday. Denies fever/chills, diaphoresis, N/V/D, syncope, fall, vision changes, neck pain, CP, SOB, orthopnea, palp itations, cough, sore throat, choking, otalgia, rhinorrhea, abdominal pain, paresthesias, extremity edema, rashes, urinary symptoms. In ER patient with noted left facial drooping, rightward gaze. CTA head:occlusion of the distal M2 segment of the right middle cerebral artery. [facility]parna tele stroke was contacted who recommended no TPA, tele consult with interventional radiologist recommended no other intervention. Admission Exam Per Admitting Provider General: no distress, thin, frail appearing elderly female Head: normocephalic, atraumatic Eyes: conjunctiva non-injected, anicteric ENT: normal inspection external ears, nose, mucous membranes moist Neck: supple, trachea midline Lungs: clear, no respiratory distress, no wheezing/rhonchi/rales CV: RRR, no pretibial edema Abd: normal BS, soft, non-tender Ext: no cyanosis, no calf tenderness Neuro: A&O x 3, normal affect. Pt with rightward gaze, mid and left visual field deficit, unable to fully test EOMs, +facial drooping, slight slurred speech, pt reports less sensation left side of face, unable to raise eyebrows, close eyes or stick out tongue for this provider. hearing grossly intact, right shoulder shrug intact Skin: warm, dry Principal Diagnosis probable stroke atrial fibrillation with RVR Discharge Exam see note Discharge Data Allergies Allergy/AdvReac Type Severity Reaction Status Date / Time cephalexin Allergy Intermediate Hives Verified 02/18/21 15:49 codeine Allergy Unknown edema Verified 02/18/21 15:49 airway,rash & hives egg Allergy Unknown ALLERGY TO Verified 02/18/21 15:49 EGG WHITES ketorolac Allergy Unknown Unknown Verified 02/18/21 15:49 omeprazole Allergy Unknown unknown Verified 02/18/21 15:49 propoxyphene Allergy Unknown Unknown Verified 02/18/21 15:49 Sulfa (Sulfonamide Allergy Unknown Unknown Verified 02/18/21 15:49 Antibiotics) capsaicin AdvReac Severe HIGH BP Verified 02/18/21 15:49 diclofenac AdvReac Severe HIGH BP Verified 02/18/21 15:50 Diclopak AdvReac Severe HIGH BP Verified 03/09/18 20:00 isopropyl alcohol AdvReac Severe HIGH BP Verified 02/18/21 15:50 propylene glycol AdvReac Severe HIGH BP Verified 02/18/21 15:50 tizanidine AdvReac Intermediate DELIRIUM Verified 02/18/21 15:50 sucralfate AdvReac Unknown itching,n/v Verified 02/18/21 15:50 Consultations 02/18/21 16:19 ED Decision to Admit Stat 02/18/21 20:38 Consult Neurology Routine 02/19/21 11:12 Consult Palliative Care Routine 02/19/21 13:51 Consult Cardiology Routine Ordered Studies Laboratory Results WBC 17.50 K/uL (4.8-10.8) H 02/20/21 07:56 RBC 3.96 M/uL (4.2-5.4) L 02/20/21 07:56 Hgb 11.8 g/dL (12.0-16.0) L 02/20/21 07:56 Hct 35.8 % (37-47) L 02/20/21 07:56 MCV 90.4 fL (80-100) 02/20/21 07:56 MCH 29.8 pg (25-34) 02/20/21 07:56 MCHC 33.0 g/dL (32-36) 02/20/21 07:56 RDW Std Deviation 52.8 fL (36.4-46.3) H 02/20/21 07:56 RDW Coeff of Barney 15.9 % (11.5-14.5) H 02/20/21 07:56 Plt Count 251 K/uL (130-400) 02/20/21 07:56 MPV 11.1 fL (7.4-10.4) H 02/20/21 07:56 Immature Gran % (Auto) 0.2 % 02/20/21 07:56 Neut % (Auto) 81.7 % 02/20/21 07:56 Lymph % (Auto) 9.1 % 02/20/21 07:56 [place] % (Auto) 8.9 % 02/20/21 07:56 Eos % (Auto) 0.0 % 02/20/21 07:56 Baso % (Auto) 0.1 % 02/20/21 07:56 Neut # (Auto) 14.30 K/uL (1.4-6.5) H 02/20/21 07:56 Lymph # (Auto) 1.60 K/uL (1.2-3.4) 02/20/21 07:56 [place] # (Auto) 1.55 K/uL (0.11-0.59) H 02/20/21 07:56 Eos # (Auto) 0.00 K/uL (0-0.5) 02/20/21 07:56 Baso # (Auto) 0.01 K/uL (0-0.2) 02/20/21 07:56 Immature Gran # (Auto) 0.04 K/uL (0.00-0.02) H 02/20/21 07:56 PT 11.0 Seconds (9.0-12.0) 02/18/21 14:43 INR 1.1 (0.9-1.1) 02/18/21 14:43 APTT 22.5 Seconds (21.0-31.0) 02/18/21 14:43 PTT Ratio 0.9 02/18/21 14:43 ABG pH 7.37 (7.35-7.45) 02/19/21 14:18 ABG pCO2 37 mmHg (35-46) 02/19/21 14:18 ABG pO2 79 mmHg (80-95) L 02/19/21 14:18 ABG HCO3 21 mmol/L (19-24) 02/19/21 14:18 ABG O2 Saturation 96.0 % (90-95) H 02/19/21 14:18 ABG Base Excess -3.8 mEq/L (-9-1.8) 02/19/21 14:18 Varun Test Pos (Pos) 02/19/21 14:18 Barometric Pressure 736.2 mm/Hg 02/19/21 14:18 Oxygen Given room air 02/19/21 14:18 Sodium 137 mmol/L (136-145) 02/20/21 07:56 Potassium 3.2 mmol/L (3.5-5.1) L 02/20/21 07:56 Chloride 105 mmol/L (98-107) 02/20/21 07:56 Carbon Dioxide 25 mmol/L (21-32) 02/20/21 07:56 Anion Gap 7.0 (3-11) 02/20/21 07:56 BUN 12 mg/dl (7-18) 02/20/21 07:56 Creatinine 0.78 mg/dl (0.6-1.2) 02/20/21 07:56 Est Cr Clr Drug Dosing 30.9 ml/min 02/20/21 07:56 Est GFR ( Amer) 79.8 ml/min 02/20/21 07:56 Est GFR (Non-Af Amer) 68.8 ml/min 02/20/21 07:56 BUN/Creatinine Ratio 15.9 (10-20) 02/20/21 07:56 Glucose 119 mg/dl (70-99) H 02/20/21 07:56 Estimat Average Glucose 123 mg/dl 02/19/21 02:33 Hemoglobin A1c 5.9 % (4.5-5.6) H 02/19/21 02:33 Lactate 1.6 mmol/L (0.4-2.0) 02/19/21 14:18 Calcium 8.7 mg/dl (8.5-10.1) 02/20/21 07:56 Phosphorus 3.0 mg/dl (2.5-4.9) 02/19/21 14:18 Magnesium 2.2 mg/dl (1.8-2.4) 02/19/21 14:18 Total Bilirubin 0.8 mg/dl (0.2-1) 02/19/21 14:18 AST 22 U/L (15-37) 02/19/21 14:18 ALT 16 U/L (12-78) 02/19/21 14:18 Alkaline Phosphatase 78 U/L (45-117) 02/19/21 14:18 Troponin I 0.029 ng/ml (0-0.045) 02/19/21 14:18 NT-Pro-B Natriuret Pep 6669 pg/ml (0-1800) H 02/19/21 14:18 Total Protein 6.5 gm/dl (6.4-8.2) 02/19/21 14:18 Albumin 2.7 gm/dl (3.4-5.0) L 02/19/21 14:18 Globulin 3.8 gm/dl (2.5-4.0) 02/19/21 14:18 Albumin/Globulin Ratio 0.7 (0.9-2) L 02/19/21 14:18 Triglycerides 62 mg/dl (0-150) 02/19/21 02:33 Cholesterol 197 mg/dl (0-200) 02/19/21 02:33 LDL Cholesterol, Calc 126 mg/dl 02/19/21 02:33 VLDL Cholesterol, Calc 12 mg/dl 02/19/21 02:33 HDL Cholesterol 59 mg/dl 02/19/21 02:33 Cholesterol/HDL Ratio 3 02/19/21 02:33 Procalcitonin < 0.05 ng/ml (0-0.5) 02/19/21 14:18 Urine Color Yellow 02/18/21 18:30 Urine Appearance Clear (Clear) 02/18/21 18:30 Urine pH 8.0 (4.5-7.5) H 02/18/21 18:30 Ur Specific [place] 1.025 (1.000-1.030) 02/18/21 18:30 Urine Protein Negative (Negative) 02/18/21 18:30 Urine Glucose (UA) Negative (Negative) 02/18/21 18:30 Urine Ketones Trace (Negative) H 02/18/21 18:30 Urine Blood Trace (Negative) H 02/18/21 18:30 Urine Nitrite Negative (Negative) 02/18/21 18:30 Urine Bilirubin Negative (Negative) 02/18/21 18:30 Urine Urobilinogen Negative (Negative) 02/18/21 18:30 Ur Leukocyte Esterase Negative (Negative) 02/18/21 18:30 Urine WBC (Auto) 1-5 /hpf (0-5) 02/18/21 18:30 Urine RBC (Auto) 0-4 /hpf (0-4) 02/18/21 18:30 U Hyaline Cast (Auto) 0 /lpf (0-5) 02/18/21 18:30 U Epithel Cells (Auto) 0-5 /lpf (0-5) 02/18/21 18:30 Urine Bacteria (Auto) Negative (Negative) 02/18/21 18:30 COVID-19 Eval Order Covid19 at [facility] 02/18/21 15:40 SARS-CoV-2 (PCR) NEGATIVE (Negative) 02/18/21 15:[address] 02/18/21 14:19 CT SCAN OF THE BRAIN WITHOUT IV CONTRAST CLINICAL HISTORY: Strokelike symptoms. COMPARISON STUDY: CT of the brain dated 10/27/2015. TECHNIQUE: Unenhanced axial CT scan of the brain is performed from the vertex to the skull base. A dose lowering technique was utilized adhering to the principles of ALARA. FINDINGS: Brain parenchyma: There are age-related involutional changes noting mild to moderate subcortical and periventricular microangiopathic change. There is no hemorrhage, mass effect, or evidence of acute territorial ischemia by CT criteria. [place]-white matter differentiation is preserved. Mineralization is noted in the basal ganglia. No extra-axial fluid collection is seen. Ventricles, sulci, cisterns: Prominent secondary to involutional change. Intracranial vasculature: There is atherosclerotic calcification of the cavernous carotid and vertebral arteries. Calvarium: Unremarkable. Sinuses and mastoids: The paranasal sinuses are clear. The mastoid air cells are well pneumatized. Orbits: The bony orbits are grossly intact. There is a right ocular lens implant. IMPRESSION: There is no hemorrhage, mass effect, or evidence of acute territorial ischemia by CT criteria. ACT 112: Negative or not required by law. Electronically signed by: Woodrow Salazar M.D. 02/18/2021 2:36 PM Head CTA 02/18/21 14:19 CT ANGIOGRAM OF THE BRAIN; CT ANGIOGRAM OF THE NECK CLINICAL HISTORY: Strokelike symptoms. COMPARISON STUDY: Unenhanced CT of the brain performed concurrently on 02/18/2021. TECHNIQUE: Following the IV administration of 116 of Optiray 320, CT angiogram of the head and neck was performed from the aortic arch to the vertex. Images are reviewed in the axial, sagittal, and coronal planes. 3-D MIPS images are created and assessed. IV contrast was administered without complication. All measurements were calculated based on NASCET criteria. A dose lowering technique was utilized adhering to the principles of ALARA. CT DOSE: 950.86 mGy.cm FINDINGS: Brain parenchyma: There is age-related involutional change noting [id number] subcortical and periventricular microangiopathic disease. There is no hemorrhage, mass effect, or evidence of acute territorial ischemia by CT criteria. There is no evidence of enhancing mass lesion on the angiogram phase images. The ventricles, sulci, and cisterns are prominent secondary to involutional change. [place]-white matter differentiation is preserved. No extra- axial fluid collection is seen. Thoracic aorta: There is atherosclerotic calcification of the thoracic aorta. Visualized portions of the thoracic aorta are normal in caliber. The aortic arch demonstrates standard 3-vessel anatomy. Right carotid arterial system: The right common carotid artery is widely patent, as are the right internal and external carotid arteries. Mild plaque is seen in the carotid bulb. Left carotid arterial system: The left common carotid artery is widely patent, as are the left internal and external carotid arteries. Calcified plaque is noted in the carotid bulb. Vertebral arteries: The vertebral arteries are widely patent bilaterally and codominant. Subclavian arteries: Widely patent bilaterally. Intracranial vasculature: There is atherosclerotic calcification of the cavernous carotid and vertebral arteries. The internal carotid arteries are patent at the skull base, as are the anterior cerebral arteries. The left middle cerebral artery is widely patent. The proximal portions of the right middle cerebral artery are clear. There is focal occlusion of the distal M2 segment of the right middle cerebral artery. This is best seen on axial image #144 and coronal image #38. The vertebrobasilar system and posterior cerebral arteries are widely patent. The vertebral arteries are codominant. 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 This is best seen on image #126. Jugular veins: Patent bilaterally. Dural sinuses: Patent. Lung apices: Partially visualized upper lobe lung parenchyma appears clear. Soft tissues: The visualized pharyngeal soft tissues are normal in appearance noting angiographic phase technique. The oropharyngeal airway appears widely patent. The salivary and thyroid glands are normal in appearance. No cervical lymphadenopathy is seen. Skeletal structures: The skeletal structures are osteopenic. The calvarium appears intact. The cervical spine is maintained noting multilevel spondylosis. No lytic or blastic lesion is seen. Orbits: The bony orbits are intact. Orbital contents are normal as visualized noting a right ocular lens implant. Sinuses and mastoids: The paranasal sinuses are clear. The mastoid air cells are well pneumatized. IMPRESSION: 1. There is no evidence of hemorrhage, mass effect, or acute territorial ischemia noting angiographic phase technique. 2. There is focal vessel cut-off/occlusion of the distal M2 segment of the right middle cerebral artery. 3. 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 4. Unremarkable CT angiogram of the neck. ACT 112: Negative or not required by law. Electronically signed by: Woodrow Salazar M.D. 02/18/2021 2:52 PM Neck CTA 02/18/21 14:19 CT ANGIOGRAM OF THE BRAIN; CT ANGIOGRAM OF THE NECK CLINICAL HISTORY: Strokelike symptoms. COMPARISON STUDY: Unenhanced CT of the brain performed concurrently on 02/18/2021. TECHNIQUE: Following the IV administration of 116 of Optiray 320, CT angiogram of the head and neck was performed from the aortic arch to the vertex. Images are reviewed in the axial, sagittal, and coronal planes. 3-D MIPS images are created and assessed. IV contrast was administered without complication. All measurements were calculated based on NASCET criteria. A dose lowering technique was utilized adhering to the principles of ALARA. CT DOSE: 950.86 mGy.cm FINDINGS: Brain parenchyma: There is age-related involutional change noting [id number] subcortical and periventricular microangiopathic disease. There is no hemorrhage, mass effect, or evidence of acute territorial ischemia by CT criteria. There is no evidence of enhancing mass lesion on the angiogram phase images. The ventricles, sulci, and cisterns are prominent secondary to involutional change. [place]-white matter differentiation is preserved. No extra- axial fluid collection is seen. Thoracic aorta: There is atherosclerotic calcification of the thoracic aorta. Visualized portions of the thoracic aorta are normal in caliber. The aortic arch demonstrates standard 3-vessel anatomy. Right carotid arterial system: The right common carotid artery is widely patent, as are the right internal and external carotid arteries. Mild plaque is seen in the carotid bulb. Left carotid arterial system: The left common carotid artery is widely patent, as are the left internal and external carotid arteries. Calcified plaque is noted in the carotid bulb. Vertebral arteries: The vertebral arteries are widely patent bilaterally and codominant. Subclavian arteries: Widely patent bilaterally. Intracranial vasculature: There is atherosclerotic calcification of the cavernous carotid and vertebral arteries. The internal carotid arteries are patent at the skull base, as are the anterior cerebral arteries. The left middle cerebral artery is widely patent. The proximal portions of the right middle cerebral artery are clear. There is focal occlusion of the distal M2 segment of the right middle cerebral artery. This is best seen on axial image #144 and coronal image #38. The vertebrobasilar system and posterior cerebral arteries are widely patent. The vertebral arteries are codominant. 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 This is best seen on image #126. Jugular veins: Patent bilaterally. Dural sinuses: Patent. Lung apices: Partially visualized upper lobe lung parenchyma appears clear. Soft tissues: The visualized pharyngeal soft tissues are normal in appearance noting angiographic phase technique. The oropharyngeal airway appears widely patent. The salivary and thyroid glands are normal in appearance. No cervical lymphadenopathy is seen. Skeletal structures: The skeletal structures are osteopenic. The calvarium appears intact. The cervical spine is maintained noting multilevel spondylosis. No lytic or blastic lesion is seen. Orbits: The bony orbits are intact. Orbital contents are normal as visualized noting a right ocular lens implant. Sinuses and mastoids: The paranasal sinuses are clear. The mastoid air cells are well pneumatized. IMPRESSION: 1. There is no evidence of hemorrhage, mass effect, or acute territorial ischemia noting angiographic phase technique. 2. There is focal vessel cut-off/occlusion of the distal M2 segment of the right middle cerebral artery. 3. 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 4. Unremarkable CT angiogram of the neck. ACT 112: Negative or not required by law. Electronically signed by: Woodrow Salazar M.D. 02/18/2021 2:52 PM Chest X-Ray 02/19/21 13:45 XR chest 1V portable CLINICAL HISTORY: tachypnea, new onset afib w RVR COMPARISON STUDY: Chest radiograph February 02, 2019. FINDINGS: A left subclavian pacemaker is in place. Note is made of a hiatal hernia. Left basilar opacity is likely related to a hernia or elevation of the left hemidiaphragm. There are trace right and small left pleural effusions. Cardiomegaly is unchanged. There is no evidence for pulmonary edema. IMPRESSION: 1. Cardiomegaly without overt pulmonary edema. 2. Small left and trace right pleural effusions. ACT 112: Negative or not required by law. Electronically signed by: George Maharaj M.D. 02/19/2021 2:22 PM KUB X-Ray 02/19/21 13:51 XR KUB/Abdomen 1 view CLINICAL HISTORY: recurrent nausea/vomiting COMPARISON STUDY: No previous studies for comparison. FINDINGS: Nondilated gas and stool-filled loops of bowel are seen throughout the abdomen There is no evidence of free intra-abdominal air, however please note that supine abdominal radiography has limited ability for evaluation for the free intra-abdominal air. Bilateral pleural effusion is seen, small on the right and partially visualized and probably large on the left. Vascular and costochondral calcifications are seen. Few calcifications are seen within pelvic region which might represent phleboliths. Ill-defined area of increase attenuation is seen within lower pelvis which might represent fluid-filled urinary bladder. Osseous structures are diffusely demineralized. Mild degenerative changes of the spine. Distal pacemaker wires, IVC filter and cholecystectomy clips are seen. Overall evaluation is limited due to multiple overlying wires. IMPRESSION: 1. Nonobstructive bowel gas pattern. 2. Bilateral pleural effusion, possibly large on the left. 3. The rest of findings as above. ACT 112: Negative or not required by law. The above report was generated using voice recognition software. It may contain grammatical, syntax or spelling errors. Electronically signed by: Arpita Hodges DO 02/19/2021 2:24 PM Hospital Course (1) Comfort measures only status: (2) Stroke-like symptoms: H/O hemorrhagic pontine CVA, History left hemiparesis. Presents with new episode of unresponsiveness with subsequent generalized weakness, fatigue and difficulty with speech and inability to swallow. No new stroke seen on CTA and MRI unable to be performed 2/2 pacemaker. Wheelchair- bound at baseline. PAF not on anticoagulation with elevated stroke risk. Presumably had an intracranial event, however, this was unproven on diagnostic studies. Went into rapid ventricular response and was given Lopressor 2.5mg IV x 2 doses, with spontaneous conversion into sinus rhythm. Once in sinus rhythm started on amiodarone infusion and electrolytes were replaced. Remained unable to swallow, however, and did not regain function with continued decline in mental status and level of responsiveness. Family decided to convert to comfort care measures and she was started on a morphine drip and keptcomfortable until she passed. (3) Atrial fibrillation with RVR: (4) Sick sinus syndrome: s/p pacemaker (5) Vomiting: (6) Presence of IVC filter: Total Time Total Time Spent Total Time Spent (In Minutes): 60 Discharge Plan Discharge Items Patient Disposition: Discharge Diagnosis: probable stroke atrial fibrillation with RVR Addtl Attending Provider Instructions: n/a-pt
--- NOTE | 2021-02-22 10:27 | Communication Note ---
Date of Service: February 22, 2021 NOTE: Contacted by nurse who stated patient ceased to breathe. Upon arrival to the bedside the patient was not responding to verbal or physical stimulus to awaken, pupils were fixed and dilated and unresponsive to light, there were no breath sounds on auscultation and no heard sounds were audible on auscultation. She was very cachectic in appearance. Time of 10:05am. Family was in the room at the time of exam. DO Daniel
== END 2021-02-22 11:24 | disposition expired | DRG 65 ==
LOC: ED 14:19 → 2W 16:55 → SUATTDRO 16:55 → 2W 20:07 → 2S 02-19 16:39 → 2E 02-19 22:15 → 3W 02-20 16:42
DX: Z88.2 Allergy status to sulfonamides; R29.810 Facial weakness; Z82.49 Family history of ischemic heart disease and other diseases of the circulatory system; Z95.0 Presence of cardiac pacemaker; I44.0 Atrioventricular block, first degree; Z95.828 Presence of other vascular implants and grafts; Z66 Do not resuscitate; R29.712 NIHSS score 12; G81.94 Hemiplegia, unspecified affecting left nondominant side; I25.10 Atherosclerotic heart disease of native coronary artery without angina pectoris; Z51.5 Encounter for palliative care; Z87.440 Personal history of urinary (tract) infections; I11.0 Hypertensive heart disease with heart failure; I48.0 Paroxysmal atrial fibrillation; Z79.82 Long term (current) use of aspirin; I67.1 Cerebral aneurysm, nonruptured; I50.32 Chronic diastolic (congestive) heart failure; Z74.09 Other reduced mobility; R47.81 Slurred speech; Z88.5 Allergy status to narcotic agent; Z88.1 Allergy status to other antibiotic agents; I63.511 Cerebral infarction due to unspecified occlusion or stenosis of right middle cerebral artery; I82.502 Chronic embolism and thrombosis of unspecified deep veins of left lower extremity